=== PATIENT | male | born 1970 | race Caucasian/White ===

== ENCOUNTER 2020-03-09 10:16 | Outpatient (REF) | payer OTHER, SELFPAY ==
[2020-03-09 12:17] LABS: Influenza A PCR NEGATIVE (Negative); Influenza B PCR NEGATIVE (Negative); Resp Syncy Virus RNA Qual PCR NEGATIVE (Negative); SARS COV2 PCR INHOUSE NEGATIVE (Negative)
== END 2020-03-09 10:17 | disposition home or self-care (01) ==
LOC: HO.LAB 10:16
PROVIDERS: Visit Provider Nurse Practitioner Family
DX: J06.9 Acute upper respiratory infection, unspecified (principal); J01.90 Acute sinusitis, unspecified; Z20.828 Contact with and (suspected) exposure to other viral communicable diseases
CPT/HCPCS: 0241U

== ENCOUNTER 2020-04-15 08:37 | Outpatient (REF) | payer OTHER, SELFPAY ==
--- NOTE | ~2020-04-15 | XR_ITS ---
EXAMINATION: XR ANKLE, LEFT CLINICAL INFORMATION: Trauma COMPARISON: None TECHNIQUE: AP, lateral, and mortise views of the left ankle. FINDINGS: Bone alignment is normal. No acute fracture or dislocation is seen. There are small well-corticated soft tissue ossifications adjacent to the medial lateral malleolar likely related to old trauma. There is mild arthritis at the anterior tibiotalar joint. There are calcaneal spurs. There is lateral soft tissue swelling. XR/XR ankle LT min 3V IMPRESSION: No acute fracture or dislocation seen. Probable changes from old trauma and mild posttraumatic osteoarthritis. Calcaneal spurs.
== END 2020-04-15 08:38 | disposition home or self-care (01) ==
LOC: HO.HMGCX 08:37
PROVIDERS: PCP Nurse Practitioner Family; Visit Provider Nurse Practitioner Family
DX: S99.919A Unspecified injury of unspecified ankle, initial encounter (principal)
CPT/HCPCS: 73610

== ENCOUNTER 2020-09-19 10:43 | Outpatient (REF) | payer OTHER, SELFPAY ==
--- NOTE | ~2020-09-19 | XR_ITS ---
EXAMINATION: XR KNEE, LEFT CLINICAL INFORMATION: Left knee pain COMPARISON: None TECHNIQUE: Four views of the left knee. FINDINGS: Bony mineralization is normal. There is no fracture or dislocation or destructive process. No definite suprapatellar effusion. The deep infrapatellar recess is preserved. There is no joint narrowing or erosive change or chondrocalcinosis. XR/XR knee LT 4V IMPRESSION: Unremarkable left knee.
== END 2020-09-19 10:44 | disposition home or self-care (01) ==
LOC: HO.HMGCX 10:43
PROVIDERS: PCP Nurse Practitioner Family; Visit Provider Nurse Practitioner Family
DX: M25.562 Pain in left knee (principal)
CPT/HCPCS: 73564

== ENCOUNTER 2020-11-28 17:00 | Outpatient (RCR) | payer OTHER, SELFPAY ==
--- NOTE | 2020-09-30 17:52 | MHC.PT.EP ---
[facility] [place] Office [place] Office [place] Office [address] [phone] F: [phone] F: [phone] F: [phone] F: [phone] Physical Therapy Plan of Care Date of Evaluation: Date of Surgery: Diagnosis: Cervical strain. 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 Pt is deemed an appropriate candidate to receive skilled PT in order to address his physical limitations to improve his functional ability. Frequency and Duration: The patient will be seen 2 x / wk x 5 wks. Short Term Goals: Improve baseline pain at the end of his work days from 4/10 to < 3/10. initiate HEP. Prison Goals: Symmetrical non painful cervical rotation achieved. Improve DNF flexor endurance from 20 seconds to > 34 seconds. I with HEP. Pt will report no longer painful carrying objects of weight. Treatment Plan: Modalities to reduce pain, spasms and effusion. Manual therapy to restore motion and function. Therapeutic exercise to improve strength and flexibility. Neuromuscular re-education for posture and balance. Therapeutic activities to return to functional activities of daily living. Electronically signed by: Martin Hodgson PT. Please sign and return to therapist. Thank you for your referral.
--- NOTE | 2020-12-16 15:53 | MHC.PT.DC ---
[facility] [place] Office [place] Office [place] Office [address] [phone] F: [phone] F: [phone] F: [phone] F: [phone] Physical Therapy Discharge Report Diagnosis: Cervical strain. Date of Surgery: Date of Evaluation: 09/30/20 Date of Discharge: 12/16/20 Treatments to Date: 9 Cancellations to Date: No Shows to Date: Discharge Status: Achieved Goals Improved Function Independent with HEP Discharge Summary: Chris has been an active participant in/out of the clinic. within 9 visit, chris has managed to achieve his goals, improve function, and is independent with his HEP. both pt and PT are in agreement with DC. Electronically signed by: Martin Hodgson PT Please sign and return to therapist. Thank you for your referral.
== END 2020-12-16 15:54 | disposition home or self-care (01) ==
LOC: HO.PTCHIC 17:00
PROVIDERS: PCP Nurse Practitioner Family; Visit Provider Nurse Practitioner Family
DX: S16.1XXD Strain of muscle, fascia and tendon at neck level, subsequent encounter (principal)
CPT/HCPCS: 97110; 97140; 97161

== ENCOUNTER 2021-02-09 11:08 | Outpatient (REF) | payer OTHER, SELFPAY ==
[2021-02-09 12:05] LABS: Influenza A PCR NEGATIVE (Negative); Influenza B PCR NEGATIVE (Negative); Resp Syncy Virus RNA Qual PCR POSITIVE (Negative); SARS COV2 PCR INHOUSE NEGATIVE (Negative)
== END 2021-02-09 11:09 | disposition home or self-care (01) ==
LOC: HO.LNP 11:08
PROVIDERS: Visit Provider Physician Assistant Medical
DX: Z20.822 Contact with and (suspected) exposure to COVID-19 (principal); J06.9 Acute upper respiratory infection, unspecified; J01.90 Acute sinusitis, unspecified; H66.91 Otitis media, unspecified, right ear
CPT/HCPCS: 0241U

== ENCOUNTER 2021-11-01 08:46 | Outpatient (REF) | payer OTHER, SELFPAY ==
--- NOTE | ~2021-11-01 | XR_ITS ---
EXAMINATION: XR LUMBOSACRAL SPINE CLINICAL INFORMATION: Low back pain COMPARISON: None TECHNIQUE: Three views of the lumbosacral spine. FINDINGS: 5 nonrib-bearing lumbar vertebral bodies are visualized. There is mild to moderate dextroscoliosis of the lumbar spine centered at L2. Alignment is otherwise unremarkable. Lumbar vertebral body heights are maintained. Mild narrowing of the L5/S1 disc space height. Degenerative changes of the posterior elements of the lower lumbar spine. Small osteophytes are scattered throughout the lumbar spine. XR/XR lumbar spine 2-3V IMPRESSION: Mild degenerative changes of the lumbar spine.
== END 2021-11-01 08:47 | disposition home or self-care (01) ==
LOC: HO.HMGCX 08:46
PROVIDERS: PCP Nurse Practitioner Family; Visit Provider Nurse Practitioner Family
DX: M54.50 Low back pain, unspecified (principal)
CPT/HCPCS: 72100

== ENCOUNTER 2021-12-18 07:21 | Outpatient (REF) | payer OTHER, SELFPAY ==
--- NOTE | ~2021-12-18 | MR_ITS ---
EXAMINATION: MR LUMBAR SPINE WITHOUT CONTRAST CLINICAL INFORMATION: Low back pain. COMPARISON: None TECHNIQUE: MRI of the lumbar spine was obtained using routine sequences without contrast. FINDINGS: The lumbar vertebral bodies maintain normal height and alignment. There is mild multilevel intervertebral disc height loss. No bone marrow edema is seen. The distal spinal cord appears normal. The conus medullaris terminates normally at the L1 level. The visualized paraspinal muscles and intra-abdominal and pelvic contents are within normal limits. SPINAL LEVELS: T12-L1: Disc bulging with small central extrusion with mild superior migration. Mild flattening of the ventral thecal sac. No spinal canal or neural foraminal stenosis. L1-L2: Disc bulging with shallow central protrusion. No spinal canal or neural foraminal stenosis. L2-L3: Disc bulging with annular fissuring. Mild flattening the ventral thecal sac with narrowing of the left subarticular zone. No spinal canal stenosis. Mild left neural foraminal stenosis. L3-L4: Disc bulging with mild facet arthropathy. Left foraminal protrusion compresses the exiting left L3 nerve root. No spinal canal stenosis. L4-L5: Disc bulging with right subarticular extrusion resulting in compression of the traversing right L5 nerve root. A small right-sided synovial facet cyst contributes to right subarticular stenosis at the disc level. Severe facet arthropathy. No significant spinal canal stenosis. Right foraminal protrusion mildly compresses the exiting right L4 nerve root. No significant left-sided neural foraminal stenosis. L5-S1: Disc bulging with focal central protrusion resulting in right more than left subarticular stenosis compression of the traversing right more than left S1 nerve roots. Moderate facet arthropathy. Mild right neural foraminal stenosis but without foraminal nerve root compression. MR/MR lumbar spine wo con IMPRESSION: At L3-L4 there is left foraminal protrusion resulting in compression of the exiting left L3 nerve root. At L4-L5 there is right subarticular extrusion resulting in compression of the traversing right L5 nerve root. Right foraminal protrusion mildly compresses the exiting right L4 nerve root. At L5-S1 there is central protrusion resulting in compression of the traversing right more than left S1 nerve root.
== END 2021-12-18 07:22 | disposition home or self-care (01) ==
LOC: HO.MRI 07:21
PROVIDERS: Visit Provider Nurse Practitioner Family
DX: M54.50 Low back pain, unspecified (principal); M79.606 Pain in leg, unspecified
CPT/HCPCS: 72148

== ENCOUNTER → 2022-01-25 08:39 | Outpatient (BNVA) | payer OTHER, SELFPAY | PROVIDERS: PCP Nurse Practitioner Family; Visit Provider Anesthesiology | DX: M47.816 Spondylosis without myelopathy or radiculopathy, lumbar region (principal); M51.36 Other intervertebral disc degeneration, lumbar region; M54.16 Radiculopathy, lumbar region; G89.4 Chronic pain syndrome | CPT/HCPCS: 99202 ==

== ENCOUNTER 2022-02-04 14:35 | Emergency (ER) | payer OTHER, SELFPAY | END 2022-02-04 16:46 | disposition left against medical advice (07) | LOC: HO.ED 17:09 | PROVIDERS: Emergency Provider Emergency Medicine; PCP Nurse Practitioner Family | DX: M54.50 Low back pain, unspecified (principal) ==

== ENCOUNTER 2022-04-12 08:00 | Outpatient (RCR) | payer OTHER, SELFPAY ==
--- NOTE | 2021-09-22 13:22 | MHC.PT.EP ---
[facility] [place] Office [place] Office [place] Office [address] [phone] F: [phone] F: [phone] F: [phone] F: [phone] Physical Therapy Plan of Care Date of Evaluation: Date of Surgery: Diagnosis: LBP. Assessment: Pt is a 51 y/o male referred to PT for eval and treat of LBP who presents lumbar dysfunction resulting in decreased tolerance and ability to perform standing and sitting tasks for duration, as well as lifting objects of weight, and performing LE dressing secondary to decreased hip and core strength, decreased trunk ROM as well as decreased posture, increased tissue tension, pelvic asymmetry and pain. Pt is deemed an appropriate candidate to receive skilled PT in order to address his physical limitations to improve his functional ability. Frequency and Duration: The patient will be seen 2 x / wk x 5 wks. Short Term Goals: Initiate HEP with evidence of compliance. Improve baseline at worst from 7/10 to < 4/10. Mcfp Goals: I with HEP. Pt will report no longer painful when sitting; initial: pain prevents from sitting > 1 hour. Pt will no longer find it necessary to change his way performing LE dressing and self care d/t LBP. Pt will report he has some pain with standing for duration though can stand as long as he'd like; initial < 1 hour. Treatment Plan: Modalities to reduce pain, spasms and effusion. Manual therapy to restore motion and function. Therapeutic exercise to improve strength and flexibility. Neuromuscular re-education for posture and balance. Therapeutic activities to return to functional activities of daily living. Electronically signed by: Martin Hodgson PT. Please sign and return to therapist. Thank you for your referral.
--- NOTE | 2022-04-12 13:33 | MHC.PT.DC ---
[facility] [place] Office [place] Office [place] Office [address] [phone] F: [phone] F: [phone] F: [phone] F: [phone] Physical Therapy Discharge Report Diagnosis: LBP. Date of Surgery: Date of Evaluation: 09/14/21 Date of Discharge: 04/12/22 Treatments to Date: 24 Cancellations to Date: No Shows to Date: Discharge Status: Improved Function Independent with HEP Recommend MD Follow-up Discharge Summary: Chris has been an active and motivated participant in his therapy who had been resolving his radicular symptoms though experienced a significant exacerbation and had been scheduled for spinal surgery which he is planning on in 2 weeks. He is I with a home program and is again improved of his radicular Sx again through extension based ideas though persists with limiting LBP. Electronically signed by: Martin Hodgson PT. Please sign and return to therapist. Thank you for your referral.
== END 2022-04-12 13:34 | disposition home or self-care (01) ==
LOC: HO.PTCHIC 08:00
PROVIDERS: PCP Nurse Practitioner Family; Visit Provider Nurse Practitioner Family
DX: M54.50 Low back pain, unspecified (principal)
CPT/HCPCS: 97014; 97110; 97112; 97140; 97161; 97530

== ENCOUNTER → 2022-08-29 10:20 | Outpatient (BNVA) | payer OTHER, SELFPAY | PROVIDERS: PCP Nurse Practitioner Family; Visit Provider Anesthesiology | DX: G89.4 Chronic pain syndrome (principal); M47.816 Spondylosis without myelopathy or radiculopathy, lumbar region; M51.36 Other intervertebral disc degeneration, lumbar region | CPT/HCPCS: 99212 ==

== ENCOUNTER 2022-10-23 05:55 | Outpatient (REF) | payer OTHER, SELFPAY ==
--- NOTE | ~2022-10-23 | FL_ITS ---
EXAMINATION: XR FLUOROSCOPY WITH IMAGES CLINICAL INFORMATION: Spondylosis without myelopathy or radiculopathy, lumbar region. COMPARISON: None available. TECHNIQUE: Fluoroscopy Supervised By: Dr. Dougie Lawson. Fluoroscopy Time: 0.9 minutes. Cumulative Dose: 13.8 mGy. DAP: 0.239 Gycm2. Images: 8. FINDINGS: Images demonstrate bilateral lateral needle placement and contrast injection adjacent to the L3-L4 and L5 vertebrae FL/FL guidance in treatment room IMPRESSION: Fluoroscopy guidance for pain management procedure.
== END 2022-10-23 05:56 | disposition home or self-care (01) ==
LOC: CF 05:55
PROVIDERS: Visit Provider Anesthesiology
DX: M47.816 Spondylosis without myelopathy or radiculopathy, lumbar region (principal); M51.36 Other intervertebral disc degeneration, lumbar region; G89.4 Chronic pain syndrome
CPT/HCPCS: 64493; 64494; J2795; Q9967

== ENCOUNTER 2022-10-23 07:29 | Outpatient (AMB) | payer OTHER, SELFPAY ==
[2022-10-23 07:25] VITALS: BP 124/82; PULSE 66; RESP 16; O2SAT 96; BMI 37.2
--- NOTE | 2022-10-23 07:25 | MHC.OFFVIS ---
Intake Vital Signs 10/23/22 07:25 Height 5 ft 10 in Weight 259 lb BMI 37.2 BP 124/82 Blood Pressure Location Lt brachial Position Sitting Respiration 16 Pulse 66 Pulse Source Pulse Oximeter Pulse Oximetry (%) 96 Oxygen Delivery Method Room Air Comment Pre-Op Intake Visit Reasons: BILAT L3-L4-DRL5 DX MBB/LOCAL Allergies amoxicillin [AMOXICILLIN] Allergy (Intermediate, Verified 10/23/22 07:26) HIVES penicillin V Allergy (Unknown, Verified 10/23/22 07:26) hives penicillin Allergy (Unknown, Uncoded 06/28/22 14:14) Hives [facility] Medical History Acute middle ear effusion Social History Patient Tobacco Use Status: Never used Tobacco e-Cigarette/Vaping Use: Never Used Second Hand Smoke Exposure: No service: Yes Current occupational status: employed Current occupational exposures/hazards: Yes Cognitive needs: No Hearing needs: No Vision needs: No Physical Exam Vital Signs: Last Vital Signs Pulse 66 10/23/22 07:25 Resp 16 10/23/22 07:25 BP 124/82 10/23/22 07:25 Pulse Ox 96 10/23/22 07:25 Oxygen Delivery Method Room Air 10/23/22 07:25 BMI result Body Mass Index 37.2 Assessment & Plan Assessment & Plan (1) Spondylosis of lumbar region without myelopathy or radiculopathy: Code(s): M47.816 - Spondylosis without myelopathy or radiculopathy, lumbar region Plan: Diagnostic medial branch block L3,L4 dorsal ramus L5 bilateral.? ? ?Informed consent was explained to the patient. All questions were explained and? answered.? The patient was taken inside the operating room where she was positioned prone on the operating table. Time-out was performed delineating correct site, side, the nature of the procedure, patient's allergy, . All operating room staff was participating in OR time-out procedure. ? ? The lower back was prepped with ChloraPrep and draped with sterile towels.? C-arm was brought over the operating field and sq picture ofL3, L4-, L5 vertebra and S1 AREA were delineated on the screen.? Point of interest were delineated as confluence of superior articular process of L4 and L5 vertebra bilaterally with corresponding transverse processes as well as confluence of the sacral alae bilaterally with superior articular process of S1.? The projection of the point of interest to the skin were injected with the small amount of local anesthetic lidocaine 2% 1-1.5 cc.? After that 22 gauge 3.5 inch spinal needle was driven sequentially to the points of interest in tunnel vision fashion. After needles gently contacted the bone at the point of interests the needle was injected with small amount of the contrast.? The injection of the contrast did not demonstrate any intravascular or intrathecal spread of the contrast.? After that injection of the? ropivacaine 0.5%-1cc was performed at each needle location.??after that the needles were removed and Bandaids were applied. ? Upon completion of the injections? needle was? removed and sterile Band-Aids were applied.? The patient tolerated procedure very well. (2) Disc degeneration, lumbar: Code(s): M51.36 - Other intervertebral disc degeneration, lumbar region (3) Chronic pain syndrome: Code(s): G89.4 - Chronic pain syndrome Plan This patient is suffering from spondylosis of lumbar spine as well as degeneration of lumbar spine. I offered him to have neurosurgical consult about L4-5 level. He went for a surgery with Dr. Rowley. No hardware. It was laminectomy and diskectomy. I offered him again to perform bilateral diagnostic L2-L3 -L4 dorsal ramus L5 medial branch block in the attempt to alleviate his pain. Injection will be purely diagnostic. No steroids. After the procedure I will examine the patient and the effect on this with which medial branch block alleviated his pain. MRI to check for presence of Modic changes in MBB is not effective. Orders: Orders FL guidance in treatment room Today M47.816 - Spondylosis without myelopathy or radiculopathy, lumbar region Coding Level of Care Code Procedure Only Diagnoses Spondylosis of lumbar region without myelopathy or radiculopathy M47.816 Disc degeneration, lumbar M51.36 Chronic pain syndrome G89.4
== END 2022-10-23 08:05 | disposition home or self-care (01) ==
PROVIDERS: PCP Nurse Practitioner Family; Visit Provider Anesthesiology
DX: M47.816 Spondylosis without myelopathy or radiculopathy, lumbar region (principal); M51.36 Other intervertebral disc degeneration, lumbar region; G89.4 Chronic pain syndrome
CPT/HCPCS: 64493; 64494

== ENCOUNTER 2022-10-25 08:32 | Outpatient (AMB) | payer OTHER, SELFPAY ==
--- NOTE | 2022-10-25 08:35 | MHC.OFFVIS ---
Intake Vital Signs 10/25/22 08:43 Height 5 ft 10 in Weight 265 lb BMI 38.0 BP 134/84 Blood Pressure Location Lt brachial Position Sitting Respiration 16 Pulse 78 Pulse Source Pulse Oximeter Pulse Oximetry (%) 98 Oxygen Delivery Method Room Air Intake Visit Reasons: BILAT L3-L4-DRL5 DX MBB 10/23/22 Intake Note: patient comes in for post-op appointment. Allergies amoxicillin [AMOXICILLIN] Allergy (Intermediate, Verified 10/25/22 08:42) HIVES penicillin V Allergy (Unknown, Verified 10/25/22 08:42) hives penicillin Allergy (Unknown, Uncoded 06/28/22 14:14) Hives HPI HPI Comments History of Present Illness Details Chris is back in my office after diagnostic medial branch block L2-L3 L4 dorsal ramus L5 bilateral diagnostic which was performed on 10/23/2022. He reports 100% pain relief immediately after the procedure 0/10 pain. 1 hour after the procedure he has pain was 2/10. 2 hours after the procedure the pain became 4/10. 3 hours of the procedure he report pain 0/10 he reported able to be sitting for long period of time reported absence of stiffness when he stood up. For hours after the procedures he had 0 pain in the back and 5 hours of the procedure he had pain 2/10 in the back. 6 hours after procedure pay started to come back to the baseline and was 5/10. Therefore it looks like that he has very significant pain relief. Usually during the daytime as he day progresses his pain is getting worse and more intense. After the injection he reported delay of the onset of the pain exacerbation, better mobility and better mood. He is interested in long-term solutions to treat his pain. I offered him sprint PNS versus RFA. All procedures were explained to the patient in great detail. The patient will think about it he will give us a call and inform us about his decision into which procedure he would like to go for. Limitations risks and benefits of all the potential treatments explained to the patient. Prior: he had neurosurgical procedure laminectomy and diskectomy form by Dr. Rowley. He reports that symptoms of radiculopathy pain and paresthesia going down to the lower extremity are much better after the surgery. However axial back pain is getting worse. As we planned before I decided to schedule him again for diagnostic medial branch block L3-L4 does ramus L5 bilateral. I will schedule him for this procedure clay. After procedure I will evaluate his pain again. Minimal suspicion for right sacroiliitis may justify future sacroiliac joint injection on the right if MBB will not help his pain. 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 He reports pain in the back with radiation to the hip he also reports tingling pins and needle sensation in the right foot.? Reports all the toes are affected.? ? He had an MRI of the lumbar spine which is dictated by below.? He went for physical therapy with core physical therapy and did not receive any pain improvement he went for chiropractic manipulation with no improvement he went for massage therapy with no improvement head 10s unit with no improvement.? He never had any injections.? [facility] Medical History Acute middle ear effusion Social History Patient Tobacco Use Status: Never used Tobacco e-Cigarette/Vaping Use: Never Used Second Hand Smoke Exposure: No service: Yes Current occupational status: employed Current occupational exposures/hazards: Yes Cognitive needs: No Hearing needs: No Vision needs: No Review of Systems Const All systems reviewed & are unremarkable except as noted in HPI and below ENT Reports Normal hearing present Neuro Reports Normal hearing present, Denies Abnormal speech present and Denies Sensory deficit (Neuro) Physical Exam Vital Signs: Last Vital Signs Pulse 78 10/25/22 08:43 Resp 16 10/25/22 08:43 BP 134/84 10/25/22 08:43 Pulse Ox 98 10/25/22 08:43 Oxygen Delivery Method Room Air 10/25/22 08:43 BMI result Body Mass Index 38.0 Const General: healthy appearing, comfortable and well developed Nutritional Appearance: obese Orientation/consciousness: patient oriented x3 Eyes General: appearance normal, both eyes and all related structures Pupils: Equal, round and reactive pupils present EOM: EOMs intact bilaterally Neck Neck: Yes full ROM Chest Chest palpation & inspection: normal inspection of the chest Resp Effort & Inspection: normal respiratory effort, able to speak in complete sentences, normal respiratory pattern, no audible wheezes and no cough Cardio Jugular venous distension: no JVD GI Inspection: Yes normal to inspection Back/Spine/Pelvis Other: SLR is negative for pain increase in the right lower extremity. lassegue test is negative for pain increase in the right lower extremity. Andres's test is negative for pain increase. Loading test is positive on the right more than it is positive on the left. Tenderness on palpation on paraspinal but not spinal region of the lumbar spine. Gaenslen test is negative on the right. The left side is not affected by the pain. Neuro General: patient oriented x3 Cranial nerves: Yes CN's II-XII intact bilaterally, Yes Equal, round and reactive pupils present, Yes Normal hearing present and Yes Ability to bilaterally elevate shoulders present Speech: No Abnormal speech present Gait exam (Neuro): Normal gait present Motor exam (neuro): 5/5 motor strength present throughout Sensory Exam: No Sensory deficit (Neuro) Extrem General: No pedal edema Psych Speech and movement: Normal speech and movement present Affect: normal affect Attitude: cooperative Thought process: Normal thought process present Thought content: Normal thought content present Insight: Good insight present (Psych) Judgement: Good judgement present (Psych) Assessment & Plan Assessment & Plan (1) Spondylosis of lumbar region without myelopathy or radiculopathy: Code(s): M47.816 - Spondylosis without myelopathy or radiculopathy, lumbar region (2) Disc degeneration, lumbar: Code(s): M51.36 - Other intervertebral disc degeneration, lumbar region (3) Chronic pain syndrome: Code(s): G89.4 - Chronic pain syndrome Plan This patient is suffering from spondylosis of lumbar spine as well as degeneration of lumbar spine. I offered him to have neurosurgical consult about L4-5 level. He went for a surgery with Dr. Rowley. No hardware. It was laminectomy and diskectomy. I offered him again to perform bilateral diagnostic L2-L3 -L4 dorsal ramus L5 medial branch block in the attempt to alleviate his pain. Results of the injections are as above. RFA versus PNS print were explained to the patient. He will think about it and let us know which way he would like to proceed. My personal choice would be sprint peripheral nerve stimulation for - this patient. MRI to check for presence of Modic changes if MBB or RFA is not effective. Coding Level of Care Code Est Pt Level 4 (07624) Diagnoses Spondylosis of lumbar region without myelopathy or radiculopathy M47.816 Disc degeneration, lumbar M51.36 Chronic pain syndrome G89.4
[2022-10-25 08:43] VITALS: BP 134/84; PULSE 78; RESP 16; O2SAT 98; BMI 38.0
== END 2022-10-25 09:11 | disposition home or self-care (01) ==
PROVIDERS: PCP Nurse Practitioner Family; Visit Provider Anesthesiology
DX: G89.4 Chronic pain syndrome (principal); M47.816 Spondylosis without myelopathy or radiculopathy, lumbar region; M51.36 Other intervertebral disc degeneration, lumbar region
CPT/HCPCS: 99214

== ENCOUNTER → 2022-10-25 08:32 | Outpatient (BNVA) | payer OTHER, SELFPAY | PROVIDERS: PCP Nurse Practitioner Family; Visit Provider Anesthesiology | DX: M47.816 Spondylosis without myelopathy or radiculopathy, lumbar region (principal); M51.36 Other intervertebral disc degeneration, lumbar region; G89.4 Chronic pain syndrome | CPT/HCPCS: 99212 ==

== ENCOUNTER 2022-11-05 08:25 | Outpatient (REF) | payer OTHER, SELFPAY ==
[2022-11-05 11:20] LABS: MANUAL DIFF FLAG NO
[2022-11-05 11:32] LABS: Basophils Absolute Auto 0.1 X10*3/uL (0.0-0.2); Basophils Percent Auto 1.1 % (0-2); Eosinophils Absolute Auto 0.2 X10*3/uL (0.0-0.4); Eosinophils Percent Auto 3.6 % (0-4); Hematocrit 44.6 % (42.0-52.0); Hemoglobin 14.7 g/dl (14.0-18.0); Imm Gran Abs Auto 0.02 X10*3/uL (0.00-0.03); Imm Gran Pct Auto 0.3 % (0.0-0.4); Lymphocytes Absolute Auto 2.4 X10*3/uL (1.2-4.9); Mean Corpuscular Hemoglobin 27.8 pg (27.0-33.0); Mean Corpuscular Volume 84.3 fL (80.0-98.0); Mean Platelet Volume 10.9 fL (9.4-12.4); Monocytes Absolute Auto 0.5 X10*3/uL (0.1-1.2); Monocytes Percent Auto 7.6 % (2-11); Neutrophils Absolute Auto 3.3 x10*3/uL (2.0-8.3); Neutrophils Percent Auto 50.4 % (45-73); Platelet Count 261 X10*3/uL (160-400); Red Blood Count 5.29 X10*6/uL (4.60-5.80); Red Cell Distribution Width 14.7 % (11.0-16.0); White Blood Count 6.6 X10*3/uL (4.8-10.8)
[2022-11-05 11:36] LABS: Appearance Urine Clear; Color Urine Yellow; Glucose Urine UA Negative (Negative); Leukocyte Esterase Urine Negative (Negative); Nitrite Urine Negative (Negative); PH 5.5 (5.0-9.0); Urine Blood Negative (Negative); Urine Ketones Negative (Negative); Urine Protein Negative (Neg-Trace)
[2022-11-05 12:21] LABS: Alanine Aminotransferase 36 U/L (0-40); Albumin Level 4.5 g/dL (3.5-5.0); Alkaline Phosphatase 48 U/L (39-117); Anion Gap 13 (12-20); Aspartate Amino Transferase 25 U/L (5-37); Bilirubin Total 0.4 mg/dL (0.0-1.0); Blood Urea Nitrogen 11 mg/dL (9-16); Calcium 9.4 mg/dL (8.4-10.2); Carbon Dioxide 25 mmol/L (22-29); Chloride 107 mmol/L (96-108); Cholesterol 230 mg/dL (<200); Estimated Glomerular Filt Rate > 60; Glucose Fasting 107 mg/dL (60-99); HDL Cholesterol 48 mg/dL (>40); LDL Cholesterol Calculated 139 mg/dL (<100); Potassium 4.6 mmol/L (3.3-5.1); Sodium 140 mmol/L (135-145); Total Protein 7.6 g/dL (6.5-8.0); Triglycerides 216 mg/dL (<150)
[2022-11-05 12:39] LABS: Prostate Specific Antigen Scr 1.05 ng/mL (<0.05-4.0)
== END 2022-11-05 08:26 | disposition home or self-care (01) ==
LOC: HO.HMGCLDS 08:25
PROVIDERS: PCP Nurse Practitioner Family; Visit Provider Nurse Practitioner Family
DX: Z00.00 Encounter for general adult medical examination without abnormal findings (principal); Z12.5 Encounter for screening for malignant neoplasm of prostate; E78.5 Hyperlipidemia, unspecified; Z13.29 Encounter for screening for other suspected endocrine disorder; Z13.0 Encounter for screening for diseases of the blood and blood-forming organs and certain disorders involving the immune mechanism
CPT/HCPCS: 36415; 80053; 80061; 81003; 84153; 84443; 85025

== ENCOUNTER 2022-11-19 07:36 | Outpatient (AMB) | payer OTHER, SELFPAY ==
--- NOTE | 2022-11-19 07:06 | A.OFFPC_ITS ---
Intake Visit Reasons: discuss back pain/[phone] Allergies amoxicillin [AMOXICILLIN] Allergy (Intermediate, Verified 10/25/22 08:42) HIVES penicillin V Allergy (Unknown, Verified 10/25/22 08:42) hives penicillin Allergy (Unknown, Uncoded 06/28/22 14:14) Hives Tobacco use date assessed: 06/28/22 HPI discuss back pain/[phone] HPI Details Lower back pain: Pt underwent a L4-L5 laminectomy and removal of synovial cyst on the right in April of 2022. He also had a diagnostic medial branch block L3, L4 dorsal ramus L5 bilateral on 10/23. He reports that this has helped somewhat. Pt is awaiting an appointment with pain management for an RFA. Pt reports that he is unable to sit for long periods due to pain. Will keep him out of jury duty. Denies any signs of cauda equina. [facility] Medical History (Reviewed 06/28/22 @ 14:43 by Bradley Murphy [facility]) Acute middle ear effusion Social History (Reviewed 06/28/22 @ 14:43 by Bradley Murphy, [facility]) Patient Tobacco Use Status: Never used Tobacco e-Cigarette/Vaping Use: Never Used Second Hand Smoke Exposure: No service: Yes Current occupational status: employed Current occupational exposures/hazards: Yes Cognitive needs: No Hearing needs: No Vision needs: No Questionnaire Thrive Questionnaire Date Thrive assessed: 02/16/21 JAYLIN-7 AMB Questionnaire JAYLIN-7 Date JAYLIN - 7 assessed: 02/16/21 Source: Developed by Drs. Alexis Qiu, Chandirka Copeland, Juarez Hoffmann and colleagues, with an educational cecy from [employer]. Review of Systems Const Reports as per HPI Physical exam (Primary Care) Tobacco/Smoking Status: Tobacco use Status Tobacco use date assessed 06/28/22 11/19/22 07:08 Patient Tobacco Use Status Never used Tobacco 11/19/22 07:08 e-Cigarette/Vaping Use Never Used 11/19/22 07:08 Thrive Assessment: Date of Thrive Assessment Date Thrive assessed 02/16/21 11/19/22 07:08 Const General: cooperative Orientation/consciousness: patient oriented x3 Neuro General: patient oriented x3 Psych Appearance: grossly normal Mental Status: mental status grossly normal Speech and movement: Clear speech present Affect: normal affect Attitude: cooperative Thought process: Normal thought process present Thought content: Normal thought content present Insight: Good insight present (Psych) Judgement: Good judgement present (Psych) Telehealth Telehealth Location of provider rendering services: practice address Location of patient: address on file Patient Identification confirmed using: Name, : Yes Telehealth method: video Patient verbally consented to treatment: Yes Patient verbally consented to billing insurance company: Yes Patient informed of any privacy concerns related to visit: Yes Minutes spent on Phone/Video with Pt.: 10 Assessment and Plan Assessment & Plan (1) Disc degeneration, lumbar: Code(s): M51.36 - Other intervertebral disc degeneration, lumbar region (2) Radiculopathy, lumbar region: Code(s): M54.16 - Radiculopathy, lumbar region (3) Chronic pain syndrome: Code(s): G89.4 - Chronic pain syndrome Plan The patient agreed to the use of a medical services manager for this encounter. Scribed for RAMON Vanegas by Mavis Erwin medical services manager, on 11/19/2022 at 07:05 EST. Coding Level of Care Code Tele Est Pt Level 3 (84070) Diagnoses Disc degeneration, lumbar M51.36 Radiculopathy, lumbar region M54.16 Chronic pain syndrome G89.4
== END 2022-11-19 08:10 | disposition home or self-care (01) ==
PROVIDERS: PCP Nurse Practitioner Family; Visit Provider Nurse Practitioner Family
DX: M51.36 Other intervertebral disc degeneration, lumbar region (principal); M54.16 Radiculopathy, lumbar region; G89.4 Chronic pain syndrome
CPT/HCPCS: 99213

== ENCOUNTER 2022-12-27 13:21 | Day surgery (SDC) | payer OTHER, SELFPAY ==
--- NOTE | ~2022-12-27 | FL_ITS ---
EXAMINATION: XR FLUOROSCOPY WITH IMAGES CLINICAL INFORMATION: RFA COMPARISON: None available. TECHNIQUE: Fluoroscopy Supervised By: Dr. Dougie Lawson. Fluoroscopy Time: 1.0 minutes. Cumulative Dose: 23.9 mGy. DAP: 14.6 Gycm2. Images: 4. FINDINGS: Images demonstrate bilateral lateral probe placement adjacent to the L3, L4 and L5 vertebrae FL/FL guidance in OR IMPRESSION: Fluoroscopy guidance for pain management procedure
[2022-12-27 13:41] VITALS: BP 159/100; PULSE 85; RESP 18; TEMP 36.1; O2SAT 95; BMI 37.9; BMI 38.0
--- NOTE | 2022-12-27 14:18 | MHC.SHP ---
Pre-Procedural Eval Section A Date of Service: 12/27/22 The patient is an INPATIENT: No Changes since office visit: Yes Patient answered all questions The History & Physical has been completed within 30 days and I have reviewed it.: No Section B Chief Complaint: Spondylosis without myelopathy or radiculopathy, Details of Present Illness: as above Relevant Social History: None Present Medications: None Medical History: No relevant PMH History of Previous Operations: No relevant previous surgery Allergies: Allergies Allergy/AdvReac Type Severity Reaction Status Date / Time amoxicillin [AMOXICILLIN] Allergy Intermediate HIVES Verified 10/25/22 08:42 penicillin V Allergy Unknown hives Verified 10/25/22 08:42 penicillin Allergy Unknown Hives Uncoded 06/28/22 14:14 Review of Systems Sugical H&P ROS: Negative: Cardiovascular, Respiratory, Neurological, Psychiatric, Hem-Onc, Allergic/Immunologic, Gastrointestinal, Genitourinary, Integumentary, Endocrine and Eyes/Ears/Nose/Throat and Yes, Specify: Constitution ( obesity) and Musculoskeletal ( spondylosis lumbar) Exam Surgical H&P Exam: Normal: HEENT, Normal: Heart, Normal: Lungs, Normal: Extremities, Normal: Skin and Normal: Neurological and Significant Findings: Abdomen ( enlarged 2 to i/a &s/q fat) Plan Diagnosis/Plan: Unchanged I have reviewed the history and physical and performed a pertinent physical examination on my patient. No changes have occurred unless specified. Time Spent With Patient Time: Total time managing care of this patient today __ 5__ minutes.
--- NOTE | 2022-12-27 14:42 | W.PM.OPN ---
Operative Note Operative Note Date of Service: 12/27/22 Narrative: RFA L3-L4-DRL5 bilateral medial branches. Informed consent was explained to the patient. All questions were explained and answered. The patient was taken inside the operating room where he was positioned prone on the operating table. the patient was Not sedated, he was able to communicate with me during the entire procedure. Time-out was performed delineating name and of the patient,? correct site, side, the nature of the procedure, patient's allergy, preoperative antibiotic if needed. All operating room staff was participating in OR time-out procedure. The lower back was prepped with ChloraPrep and draped with sterile towels. C-arm was brought over the operating field and sq picture of L4, L5 vertebras and upper sacrum were delineated on the screen. Point of interest were delineated as connection of superior articular process of? L4 and L5 vertebra bilaterally with corresponding transverse processes as well as superior articular process of S1 bilaterally connection with sacral alae 1st on the right and then on the left side.? ?The projection of the point of interest to the skin were injected with the small amount of local anesthetic lidocaine 2% 1-1.5 cc. After that 18 gauge 100 mm RFA canulas? were driven to the point of interest in oblique fashion. After needles gently contacted the bone the? sensory and motor tests were performed.The lateral images were obtained and position of the tips of the needles away from the foramina and presumable location of the somatic nerves was verified. Sensory response was appropriate and no motor response was detected in the patients feet lower legs or thighs. After that? at the point of interests the cannulas? were injected with small amount of ropivacaine 0.5% mixed with lidocaine 1%-1cc?-2cc. and Trace amount of Kenalog. 90 seconds after the injection the energy application was performed at 89 degrees Centigrade for 90 second. After first energy application the canullas were rotated 180 degrees and energy application was repeated at the same setting.? Upon completion of the energy applications canullas were removed and sterile bandaids? were applied, The? patient was taken outside of the operating room to recovery room, he recovered uneventfully.
[2022-12-27 15:35] VITALS: BP 141/85; PULSE 66; RESP 20; TEMP 36.8; O2SAT 95
--- NOTE | 2022-12-27 15:44 | P.BOP_ITS ---
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
== END 2022-12-27 15:50 | disposition home or self-care (01) ==
PROVIDERS: PCP Nurse Practitioner Family; Visit Provider Anesthesiology
PROC: (CPT 64635; principal; 2022-12-27 14:30)
DX: M47.816 Spondylosis without myelopathy or radiculopathy, lumbar region (principal); M51.36 Other intervertebral disc degeneration, lumbar region; G89.4 Chronic pain syndrome; M96.1 Postlaminectomy syndrome, not elsewhere classified; Z88.0 Allergy status to penicillin; Z88.1 Allergy status to other antibiotic agents
CPT/HCPCS: 64635; 64636 ×2; J2795; J3301

== ENCOUNTER → 2022-12-27 13:21 | Outpatient (BNV) | payer OTHER, SELFPAY | PROVIDERS: PCP Nurse Practitioner Family; Visit Provider Anesthesiology | DX: M47.816 Spondylosis without myelopathy or radiculopathy, lumbar region (principal) | CPT/HCPCS: 64635; 64636 ==

== ENCOUNTER 2023-01-03 15:33 | Outpatient (AMB) | payer OTHER, SELFPAY ==
--- NOTE | 2023-01-03 15:36 | MHC.PC.OV ---
Vital Signs 01/03/23 15:38 Height 5 ft 10 in Weight 260 lb BMI 37.3 BP 110/78 Blood Pressure Location Rt brachial Position Sitting Pulse 68 Pulse Source Pulse Oximeter Pulse Oximetry (%) 95 Oxygen Delivery Method Room Air Intake Visit Reasons: PE Allergies amoxicillin [AMOXICILLIN] Allergy (Intermediate, Verified 01/03/23 15:39) HIVES penicillin V Allergy (Unknown, Verified 01/03/23 15:39) hives penicillin Allergy (Unknown, Uncoded 01/03/23 15:39) Hives Medication List - Last Reconciled 01/03/23 by JUSTYN Cleveland-VAN acetaminophen (Tylenol Extra Strength) 1,000 mg PO Q6H PRN atorvastatin 20 mg PO BEDTIME 90 days cyclobenzaprine 10 mg PO TID PRN 14 days fluticasone propionate 50 mcg/actuation (Flonase Allergy Relief) 2 sprays intranasal DAILY 30 days Tobacco use date assessed: 06/28/22 Dental Screening Dental Screen Date: 01/03/23 Did you have a dental visit in the last 12 months?: Yes Did you have a dental problem in the last 6 months where you did not have access to dental care?: No Was dental information given to patient?: Patient has dentist HPI PE HPI Details Pt is here for a PE. Will order labs. PSA is up to date. Pt does report that he sometimes does not feel like he is emptying his bladder. Denies dribbling with urination, weak stream, and frequent nocturia. He has seen a urologist for this in the past. PSA WNL. Pt has not been able to get ahold of the GI office to schedule an appointment. Will reach out to them. Radio Freq. Ablation to lumbar region on 2022. Pt reports the radicular symptoms have ceased, though has soreness to his lower transverse back to lower thoracic region (paraspinous muscles). Hopefully in the near future his symptoms will get better. Dyslipidemia: Will start atorvastatin 20mg and repeat labs. Starting statin for elevated LDL and choles. repeat labs in 2 months [facility] Medical History Acute middle ear effusion Surgical History (Updated 01/03/23 @ 16:05 by JUSTYN Cleveland-VAN) History of lumbar laminectomy S/P lumbar laminectomy Hx of tonsillectomy H/O shoulder surgery Family History Other H/O shoulder surgery History of lumbar laminectomy Hx of tonsillectomy Social History Patient Tobacco Use Status: Never used Tobacco e-Cigarette/Vaping Use: Never Used Second Hand Smoke Exposure: No service: Yes Current occupational status: employed Current occupational exposures/hazards: Yes Cognitive needs: No Hearing needs: No Vision needs: No Questionnaire PHQ-9 Over the last 2 weeks, how often have you been bothered by any of the following problems? 1. Little interest or pleasure in doing things: not at all 2. Feeling down, depressed, or hopeless: not at all 3. Trouble falling or staying asleep, or sleeping too much: not at all 4. Feeling tired or having little energy: not at all 5. Poor appetite or overeating: not at all 6. Feeling bad about yourself - or that you are a failure or have let yourself or your family down: not at all 7. Trouble concentrating on things, such as reading the newspaper or watching television: not at all 8. Moving or speaking so slowly that other people could have noticed. Or the opposite - being so fidgety or restless that you have been moving around a lot more than usual: not at all 9. Thoughts that you would be better off or of hurting yourself in some way: not at all Total score: 0 Depression Screening Interpretation: Negative Depression Screening Done: Yes 51452 - PHQ-9 Billing: Yes Source: Developed by Drs. Alexis Qiu, Chandrika Copeland, Juarez Hoffmann and colleagues, with an educational cecy from [employer]. Thrive Questionnaire Date Thrive assessed: 01/03/23 I am a: Patient What is your living situation today?: I have a steady place to live Within the past 12 months, did the food you bought not last and you didn't have the money to get more?: Never true Within the past 12 months, did you worry whether your food would run out before you got money to buy more?: Never true Do you have trouble paying for medicines?: No Do you have trouble getting transportation to medical appointments?: No Do you have trouble paying your heating and electricity bill?: No Do you have trouble taking care of your child, family member or friend?: No Do you have trouble with day-to-day activities such as bathing, preparing meals, shopping, managing finances, etc.?: No Are you currently unemployed and looking for a job?: Yes Are you interested in more education?: No Currently or been in a relationship where the following occur: no concerns reported AUDIT C Alcohol Use Questionnaire (AUDIT-C) 1. How often do you have a drink containing alcohol?: 2-3 times a week 2. How many drinks containing alcohol do you have on a typical day when you are drinking?: 1 or 2 3. How often do you have six or more drinks on one occasion?: Never Total Score: 3 Score Reviewed/Action Taken: No JAYLIN-7 AMB Questionnaire JAYLIN-7 Date JAYLIN - 7 assessed: 01/03/23 Feeling nervous, anxious, or on edge: 0 = Not at all Not being able to stop or control worryin = Not at all Worrying too much about different things: 0 = Not at all Trouble relaxin = Not at all Being so restless that it is hard to sit still: 0 = Not at all Becoming easily annoyed or irritable: 0 = Not at all Feeling afraid as if something awful might happen: 0 = Not at all Total JAYLIN-7 score (0-4 normal; 5-9 mild; 10-14 moderate; 15-21 severe): 0 Source: Developed by Drs. Alexis Qiu, Chandrika Copeland, Juarez Hoffmann and colleagues, with an educational cecy from [employer]. JAYLIN-7 Assessment Billing JAYLIN-7 Assessment Tool: JAYLIN-7 Assessment 44327 Review of Systems Const Denies chills and Denies fever(s) Eyes Denies blurry vision ENT Denies vertigo, Denies dizziness and Denies sore throat Card Denies chest pain at rest, Denies chest pain with activity, Denies diaphoresis, Denies dyspnea and Denies dyspnea on exertion Resp Denies cough, Denies dyspnea, Denies dyspnea on exertion and Denies wheezing GI Denies abdominal pain, Denies melena, Denies hematochezia, Denies constipation, Denies diarrhea and Denies loose stools Denies hematuria Musc Denies numbness and Denies tingling Skin/Breast Denies lesions Neuro Denies vertigo, Denies dizziness, Denies numbness and Denies tingling Psych Denies anxiety, Denies depression, Denies homicidal ideation, Denies suicidal ideation and Denies other (substance abuse) Aller/Immun Denies wheezing Physical exam (Primary Care) Vital Signs: Last Vital Signs Pulse 68 01/03/23 15:38 BP 110/78 01/03/23 15:38 Pulse Ox 95 01/03/23 15:38 Oxygen Delivery Method Room Air 01/03/23 15:38 BMI result Body Mass Index 37.3 Tobacco/Smoking Status: Tobacco use Status Tobacco use date assessed 06/28/22 01/03/23 15:38 Patient Tobacco Use Status Never used Tobacco 01/03/23 15:38 e-Cigarette/Vaping Use Never Used 01/03/23 15:38 PHQ-9: PHQ-9 Score PHQ-9: Total score 0 01/03/23 16:27 Depression Screening Interpretation: Negative Thrive Assessment: Date of Thrive Assessment Date Thrive assessed 01/03/23 01/03/23 16:27 Currently or been in a relationship where the following occur: no concerns reported Const General: cooperative Nutritional Appearance: obese Orientation/consciousness: patient oriented x3 HENMT Head: Yes normal to inspection, Yes normocephalic and Yes atraumatic Ears: TM's normal bilaterally Eyes General: appearance normal, both eyes and all related structures Alignment and Position: alignment normal and position normal Neck Neck: Yes normal visual inspection and Yes no lymphadenopathy Thyroid: Thyroid normal Resp Effort & Inspection: normal respiratory effort Auscultation: clear to auscultation bilaterally Cardio Rate: regular rate Rhythm: regular rhythm Heart sounds: S1 normal heart sound present, S2 normal heart sound present and no murmurs GI Palpation (GI): Soft to palpation and nontender Auscultation: normal bowel sounds Male General Exam: Yes normal external exam Penis: normal penis Scrotum: scrotum normal, testes descended bilaterally and no inguinal hernias Testes: no testicular mass Back/Spine/Pelvis Other: turning upper torso exacerbated lower transverse back pain and lower thorasic back pain (paraspinous muscle region) Skin Rashes: no rashes Neuro General: patient oriented x3, moves all extremities, no focal motor deficits and deep tendon reflexes 2+ bilaterally Romberg Test: Negative Psych Appearance: grossly normal Mental Status: mental status grossly normal Speech and movement: Normal speech and movement present Affect: normal affect Attitude: cooperative Thought process: Normal thought process present Thought content: Normal thought content present Insight: Good insight present (Psych) Judgement: Good judgement present (Psych) Assessment and Plan Assessment & Plan (1) Dyslipidemia: Code(s): E78.5 - Hyperlipidemia, unspecified Plan: Starting atorvastatin, repeat labs ordered (2) H/O radiofrequency ablation (RFA) of nerve of lumbar spine: Comment: dec 27 2022 Code(s): Z98.890 - Other specified postprocedural states Plan: Continue to follow up with pain management and PT (3) Physical exam: Code(s): Z00.00 - Encounter for general adult medical examination without abnormal findings Plan The patient agreed to the use of a medical instructor for this encounter. Scribed for RAMON Vanegas by Mavis Erwin medical instructor, on 01/03/2023 at 15:45 EST. Orders: Orders Lipid Panel Today E78.5 - Hyperlipidemia, unspecified Comprehensive Met. Panel Today E78.5 - Hyperlipidemia, unspecified Medications: New atorvastatin 20 mg PO BEDTIME 90 tabs 0RF 90 days Coding Level of Care Code Est Pt Prev Care 40-64y(51870) Diagnoses Dyslipidemia E78.5 H/O radiofrequency ablation (RFA) of nerve of lumbar spine Z98.890 Physical exam Z00.00 Additional Codes JAYLIN-7 Assessment Billing - JAYLIN-7 Assessment Tool: JAYLIN-7 Assessment 45178 ([id number])
[2023-01-03 15:38] VITALS: BP 110/78; PULSE 68; O2SAT 95; BMI 37.3
== END 2023-01-03 17:31 | disposition home or self-care (01) ==
PROVIDERS: PCP Nurse Practitioner Family; Visit Provider Nurse Practitioner Family
DX: E78.5 Hyperlipidemia, unspecified (principal); Z98.890 Other specified postprocedural states; Z00.00 Encounter for general adult medical examination without abnormal findings
CPT/HCPCS: 99396

== ENCOUNTER 2023-02-07 07:58 | Outpatient (AMB) | payer OTHER, SELFPAY ==
--- NOTE | 2023-02-07 08:02 | A.OFFVIS_ITS ---
Intake Vital Signs 02/07/23 08:07 Height 5 ft 10 in Weight 253 lb 8.505 oz BMI 36.4 BP 122/75 Blood Pressure Location Lt brachial Position Sitting Pulse 68 Intake Visit Reasons: Colonoscopy Screening Intake Note: Chris presents in the office as a new patient for colonoscopy screening. CC: He does not have any concerns. Skimmer Reverberatory Required: No Allergies amoxicillin [AMOXICILLIN] Allergy (Intermediate, Verified 02/07/23 08:08) HIVES penicillin V Allergy (Unknown, Verified 02/07/23 08:08) hives penicillin Allergy (Unknown, Uncoded 02/07/23 08:08) Hives Medication List - Last Reconciled 02/07/23 by Maribel Blancas PA-C acetaminophen (Tylenol Extra Strength) 1,000 mg PO Q6H PRN atorvastatin 20 mg PO BEDTIME 90 days fluticasone propionate 50 mcg/actuation (Flonase Allergy Relief) 2 sprays intranasal DAILY 30 days HPI HPI Comments History of Present Illness Details A 52 y/o male referred for screening colonoscopy He has no GI complaints. He has a normal bowel pattern, he has very good appetite. No respiratory or cardiac issues No known family history of GI cancer No nausea, vomiting, hematemesis, hematochezia fever or chills PFSH Medical History (Updated 02/07/23 @ 09:35 by Maribel Blancas PA-C) Acute middle ear effusion Surgical History History of esophagogastroduodenoscopy (EGD) Hx of colonoscopy History of lumbar laminectomy S/P lumbar laminectomy Hx of tonsillectomy H/O shoulder surgery Family History Other H/O shoulder surgery History of lumbar laminectomy Hx of tonsillectomy Social History Patient Tobacco Use Status: Never used Tobacco e-Cigarette/Vaping Use: Never Used Second Hand Smoke Exposure: No service: Yes Current occupational status: employed Current occupational exposures/hazards: Yes Cognitive needs: No Hearing needs: No Vision needs: No Review of Systems Const All systems reviewed & are unremarkable except as noted in HPI and below Card Denies chest pain and Denies dyspnea Resp Denies dyspnea GI Denies abdominal pain, Denies change in bowel habits and Denies heartburn Physical Exam Vital Signs: Last Vital Signs Pulse 68 02/07/23 08:07 BP 122/75 02/07/23 08:07 BMI result Body Mass Index 36.4 Const General: cooperative, healthy appearing, comfortable and no acute distress Orientation/consciousness: patient oriented x3 Limitations: no limitations Eyes Sclerae: sclerae normal Resp Effort & Inspection: normal respiratory effort and able to speak in complete sentences Auscultation: clear to auscultation bilaterally, no rales, no rhonchi and no wheezes Cardio Rate: regular rate Rhythm: regular rhythm Heart sounds: S1 normal heart sound present and S2 normal heart sound present GI Palpation (GI): Soft to palpation and nontender Auscultation: normal bowel sounds Skin General skin exam: no rashes or lesions noted Neuro General: patient oriented x3 Extrem General: Yes full ROM Psych Appearance: grossly normal and well kempt Mental Status: mental status grossly normal Speech and movement: Normal speech and movement present and Clear speech present Affect: normal affect Attitude: cooperative Thought process: Normal thought process present Thought content: Normal thought content present Insight: Good insight present (Psych) Judgement: Good judgement present (Psych) Assessment & Plan Assessment & Plan (1) Screening for colon cancer: Comment: Very pleasant, referred for screening colonoscopy Colonoscopy years ago, no record Code(s): Z12.11 - Encounter for screening for malignant neoplasm of colon Plan Screening colonoscopy MiraLax Gatorade prep Orders: Orders Colonoscopy - GI Use Only Today Z12.11 - Encounter for screening for malignant neoplasm of colon Medications: New polyethylene glycol 3350 (Miralax) Take as directed by mouth the day before your procedure. 238 grams PO ONCE PRN 238 grams 0RF laxative effect 1 day bisacodyl (Dulcolax (bisacodyl)) Day before procedure, prep day Take 4 tablets by mouth upon awakening followed by large glass of water 20 mg (4 x 5 mg) PO ONCE 4 tabs 0RF colonoscopy prep 1 day Z12.11 - Encounter for screening for malignant neoplasm of colon Patient Instructions: Screening colonoscopy MiraLax Gatorade prep Reviewed, literature given Escorted due to anesthesia Where risks discussed Encouraged to call questions or concerns Coding Level of Care Code New Pt Level 3 (07888) Diagnoses Screening for colon cancer Z12.11 Time Spent (min) 30
[2023-02-07 08:07] VITALS: BP 122/75; PULSE 68; BMI 36.4
== END 2023-02-07 08:40 | disposition home or self-care (01) ==
PROVIDERS: PCP Nurse Practitioner Family; Visit Provider Physician Assistant
DX: Z01.818 Encounter for other preprocedural examination (principal); Z12.11 Encounter for screening for malignant neoplasm of colon
CPT/HCPCS: S0285

== ENCOUNTER → 2023-02-07 07:58 | Outpatient (BNVA) | payer OTHER, SELFPAY | PROVIDERS: PCP Nurse Practitioner Family; Visit Provider Physician Assistant ==

== ENCOUNTER 2023-02-15 10:54 | Outpatient (REF) | payer OTHER, SELFPAY | END 2023-02-15 10:55 | disposition home or self-care (01) | LOC: HO.XRAY 10:54 | PROVIDERS: PCP Nurse Practitioner Family; Visit Provider Nurse Practitioner Family | DX: M54.50 Low back pain, unspecified (principal); M53.3 Sacrococcygeal disorders, not elsewhere classified; M25.551 Pain in right hip; M25.552 Pain in left hip; M47.816 Spondylosis without myelopathy or radiculopathy, lumbar region; Z98.890 Other specified postprocedural states | CPT/HCPCS: 73521; 99212 ==

== ENCOUNTER 2023-02-15 10:54 | Outpatient (AMB) | payer OTHER, SELFPAY ==
--- NOTE | 2023-02-15 10:57 | MHC.OFFVIS ---
Intake Vital Signs 02/15/23 11:03 Height 5 ft 10 in Weight 248 lb BMI 35.6 BP 138/93 H Blood Pressure Location Rt brachial Position Sitting Pulse 63 Pulse Source Pulse Oximeter Pulse Oximetry (%) 99 Oxygen Delivery Method Room Air Intake Visit Reasons: BILAT L3-L4-L5 RFA/LOCAL/LMOVM Intake Note: Pain today 5/10 Network Systems Analyst Required: No Accompanied by: Self / Same As Patient Allergies amoxicillin [AMOXICILLIN] Allergy (Intermediate, Verified 02/15/23 11:04) HIVES penicillin V Allergy (Unknown, Verified 02/15/23 11:04) hives penicillin Allergy (Unknown, Uncoded 02/07/23 08:08) Hives HPI HPI Comments History of Present Illness Details Patient presents today status post L3-L4-DR L5 bilateral medial branches RFA with Dr. Lawson on 12/27/22. Patient reports 75-80% ongoing pain relief since procedure with improvement in his functioning, movements, mobility, range of motions and improved sleep. Patient now reports pain in his bilateral sacral areas with radiation to his lateral hips, worse on the right. He has a slight leg discrepancy, with right leg being a bit longer. We will proceed with hip and pelvis imaging to further evaluate these areas for potential interventional treatments. Denies any recent cough, cold, infection, fever, abdominal or groin pain, weakness, foot drop, bladder or bowel dysfunction, saddle anesthesia or other significant changes in medical history since last office visit. PRIOR Dr. Lawson 10/25/22: Chris is back in my office after diagnostic medial branch block L2-L3 L4 dorsal ramus L5 bilateral diagnostic which was performed on 10/23/2022. He reports 100% pain relief immediately after the procedure 0/10 pain. 1 hour after the procedure he has pain was 2/10. 2 hours after the procedure the pain became 4/10. 3 hours of the procedure he report pain 0/10 he reported able to be sitting for long period of time reported absence of stiffness when he stood up. For hours after the procedures he had 0 pain in the back and 5 hours of the procedure he had pain 2/10 in the back. 6 hours after procedure pay started to come back to the baseline and was 5/10. Therefore it looks like that he has very significant pain relief. Usually during the daytime as he day progresses his pain is getting worse and more intense. After the injection he reported delay of the onset of the pain exacerbation, better mobility and better mood. He is interested in long-term solutions to treat his pain. I offered him sprint PNS versus RFA. All procedures were explained to the patient in great detail. The patient will think about it he will give us a call and inform us about his decision into which procedure he would like to go for. Limitations risks and benefits of all the potential treatments explained to the patient. Prior: he had neurosurgical procedure laminectomy and diskectomy form by Dr. Rowley. He reports that symptoms of radiculopathy pain and paresthesia going down to the lower extremity are much better after the surgery. However axial back pain is getting worse. As we planned before I decided to schedule him again for diagnostic medial branch block L3-L4 does ramus L5 bilateral. I will schedule him for this procedure clay. After procedure I will evaluate his pain again. Minimal suspicion for right sacroiliitis may justify future sacroiliac joint injection on the right if MBB will not help his pain. 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 He reports pain in the back with radiation to the hip he also reports tingling pins and needle sensation in the right foot.? Reports all the toes are affected.? ? He had an MRI of the lumbar spine which is dictated by below.? He went for physical therapy with core physical therapy and did not receive any pain improvement he went for chiropractic manipulation with no improvement he went for massage therapy with no improvement head 10s unit with no improvement.? He never had any injections.? [facility] Medical History Acute middle ear effusion Surgical History History of esophagogastroduodenoscopy (EGD) Hx of colonoscopy History of lumbar laminectomy S/P lumbar laminectomy Hx of tonsillectomy H/O shoulder surgery Family History Other H/O shoulder surgery History of lumbar laminectomy Hx of tonsillectomy Social History Patient Tobacco Use Status: Never used Tobacco e-Cigarette/Vaping Use: Never Used Second Hand Smoke Exposure: No service: Yes Current occupational status: employed Current occupational exposures/hazards: Yes Cognitive needs: No Hearing needs: No Vision needs: No Review of Systems Const All systems reviewed & are unremarkable except as noted in HPI and below Physical Exam Vital Signs: Last Vital Signs Pulse 63 02/15/23 11:03 BP 138/93 H 02/15/23 11:03 Pulse Ox 99 02/15/23 11:03 Oxygen Delivery Method Room Air 02/15/23 11:03 BMI result Body Mass Index 35.6 General: Appears afebrile. Alert and oriented. Mood and affect appropriate. Follows and participates in conversation appropriately. Respiratory effort is unlabored. No cough. Able to transition from sit to stand unassisted. Ambulates with bilaterally normal heel strike and toe off. Back/Spine/Pelvis Other: No midline tenderness to palpation in the thoracic or lumbar spine. No paraspinal tenderness to palpation in the lumbar spine. Mild to moderate TTP in the projection of bilateral SIJ areas, right>left. Lumbar extension or flexion does not reproduce pain. SI distraction, Andres?s test, side thrust and pelvic compression reproduce lateral hip pain bilaterally and right lower back pain. No groin pain with I/E hip rotations bilaterally. Cervical Spine: cervical ROM normal and No Cervical spine tenderness Thoracic/Lumbar Spine: thoracic and lumbar spine normal to inspection, No Thoracic/lumbar spine scar(s), thoraco-lumbar ROM normal, Lasegue's sign negative, straight leg raise negative bilaterally, No paraspinal muscle tenderness, No thoracic spinal tenderness and No lumbar spinal tenderness Pelvis: no buttock tenderness and no sciatic notch tenderness Sacroiliac joints: bilaterally tender to palpation Results Reviewed Results Reviewed: MRI lumbar spine 12/18/2021 Findings: The lumbar vertebral bodies within normal height and alignment. There is mild multilevel intervertebral disc height loss. Bone marrow edema is seen. The distal spinal cord appears normal. The conus medullaris terminates normally at L1 level. The visualized paraspinal muscles and intra-abdominal and pelvic contents are within normal limits. Spinal levels: T12-L1: Disc bulging with small central extrusion with mild superior migration. Mild flattening of the ventral thecal sac. Spinal canal or neural foraminal stenosis. L1-L2: Disc bulging with shallow central protrusion. No spinal canal or neural foraminal stenosis. L2-L3 disc bulging with annular fissuring mild flattening of ventral thecal sac. Narrowing of the left subarticular zone. No spinal canal stenosis. Mild left neural foraminal stenosis. L3-L4: Mild disc bulge with mild facet arthropathy left foraminal protrusion compresses the exiting left L3 nerve root. No spinal canal stenosis. L4-5: Disc bulging with right subarticular extrusion resulting in compression of the traversing right L4 nerve root. A small right-sided synovial facet cyst contributes to right subarticular stenosis at the disc level. Severe facet arthropathy. No significant spinal canal stenosis. Right foraminal protrusion mildly compresses the exiting right L4 nerve root. No significant left-sided neural foraminal stenosis. L5-S1: Disc bulging with focal central protrusion resulting in right more than left subarticular stenosis compression of the traversing right more than left left subarticular stenosis compressing of the traversing right more than left S1 nerve root. Moderate facet arthropathy. Mild right neural foraminal stenosis but without foraminal nerve root compression. Assessment & Plan Assessment & Plan (1) Low back pain: Code(s): M54.50 - Low back pain, unspecified (2) Sacroiliac joint pain: Code(s): M53.3 - Sacrococcygeal disorders, not elsewhere classified (3) Bilateral hip pain: Code(s): M25.551 - Pain in right hip; M25.552 - Pain in left hip (4) H/O radiofrequency ablation (RFA) of nerve of lumbar spine: Comment: dec 27 2022 Code(s): Z98.890 - Other specified postprocedural states (5) Spondylosis of lumbar region without myelopathy or radiculopathy: Code(s): M47.816 - Spondylosis without myelopathy or radiculopathy, lumbar region Plan Patient is status post bilateral L3-L4 L5 medial branch RFA with 75-80% ongoing pain relief. Patient reports improved daily functioning and improve sleep. We will proceed is bilateral hip and pelvic view imaging to assess for degenerative changes for this areas prior considering injections for sacroiliac or hip joints. Consider physical therapy or chiropractic therapy. All questions and concerns have been answered and patient agreed with the plan. Follow-up for x-ray results and sooner as needed. Orders: Orders XR hip BI w PEL1V Today M25.551 - Pain in right hip, M25.552 - Pain in left hip, M53.3 - Sacrococcygeal disorders, not elsewhere classified, M54.50 - Low back pain, unspecified Coding Level of Care Code Est Pt Level 4 (30986) Diagnoses Low back pain M54.50 Sacroiliac joint pain M53.3 Bilateral hip pain M25.551; M25.552 H/O radiofrequency ablation (RFA) of nerve of lumbar spine Z98.890 Spondylosis of lumbar region without myelopathy or radiculopathy M47.816
[2023-02-15 11:03] VITALS: BP 138/93; PULSE 63; O2SAT 99; BMI 35.6
== END 2023-02-15 11:17 | disposition home or self-care (01) ==
PROVIDERS: PCP Nurse Practitioner Family; Visit Provider Nurse Practitioner Family
DX: M25.551 Pain in right hip (principal); M25.552 Pain in left hip; M47.816 Spondylosis without myelopathy or radiculopathy, lumbar region; Z98.890 Other specified postprocedural states
CPT/HCPCS: 99214

== ENCOUNTER 2023-02-18 10:14 | Outpatient (AMB) | payer OTHER, SELFPAY ==
--- NOTE | 2023-02-18 10:20 | MHC.PC.OV ---
Vital Signs 02/18/23 10:21 Weight 255 lb BP 120/90 H Blood Pressure Location Rt brachial Position Sitting Pulse 63 Pulse Source Pulse Oximeter Pulse Oximetry (%) 98 Oxygen Delivery Method Room Air Intake Visit Reasons: Back pain Allergies amoxicillin [AMOXICILLIN] Allergy (Intermediate, Verified 02/18/23 10:21) HIVES penicillin V Allergy (Unknown, Verified 02/18/23 10:21) hives penicillin Allergy (Unknown, Uncoded 02/18/23 10:21) Hives Tobacco use date assessed: 06/28/22 Dental Screening Dental Screen Date: 02/18/23 Did you have a dental visit in the last 12 months?: Yes Did you have a dental problem in the last 6 months where you did not have access to dental care?: No Was dental information given to patient?: Patient has dentist HPI Back pain HPI Details Pt is currently following up with pain management due to lower back pain and bilat hip pain, see previous notes. He is also seeing neurosurgery. Hx of RFA. Denies any signs of cauda equina. 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 He currently describes none radicular lower transverse back pain. [facility] Medical History Acute middle ear effusion Surgical History History of esophagogastroduodenoscopy (EGD) Hx of colonoscopy History of lumbar laminectomy S/P lumbar laminectomy Hx of tonsillectomy H/O shoulder surgery Family History Other H/O shoulder surgery History of lumbar laminectomy Hx of tonsillectomy Social History Patient Tobacco Use Status: Never used Tobacco e-Cigarette/Vaping Use: Never Used Second Hand Smoke Exposure: No service: Yes Current occupational status: employed Current occupational exposures/hazards: Yes Cognitive needs: No Hearing needs: No Vision needs: No Questionnaire Thrive Questionnaire Date Thrive assessed: 01/03/23 JAYLIN-7 AMB Questionnaire JAYLIN-7 Date JAYLIN - 7 assessed: 01/03/23 Source: Developed by Drs. Alexis Qiu, Chandrika Copeland, Juarez Hoffmann and colleagues, with an educational cecy from [employer]. Review of Systems Const Reports as per HPI Physical exam (Primary Care) Vital Signs: Last Vital Signs Pulse 63 02/18/23 10:21 BP 120/90 H 02/18/23 10:21 Pulse Ox 98 02/18/23 10:21 Oxygen Delivery Method Room Air 02/18/23 10:21 Tobacco/Smoking Status: Tobacco use Status Tobacco use date assessed 06/28/22 02/18/23 10:23 Patient Tobacco Use Status Never used Tobacco 02/18/23 10:23 e-Cigarette/Vaping Use Never Used 02/18/23 10:23 Thrive Assessment: Date of Thrive Assessment Date Thrive assessed 01/03/23 02/18/23 10:23 Const General: cooperative Orientation/consciousness: patient oriented x3 Resp Effort & Inspection: normal respiratory effort Auscultation: clear to auscultation bilaterally Neuro General: patient oriented x3 Cranial nerves: Yes CN's II-XII intact bilaterally Motor exam (neuro): 5/5 motor strength present throughout Psych Appearance: grossly normal Mental Status: mental status grossly normal Speech and movement: Clear speech present Affect: normal affect Attitude: cooperative Thought process: Normal thought process present Thought content: Normal thought content present Insight: Good insight present (Psych) Judgement: Good judgement present (Psych) Assessment and Plan Assessment & Plan (1) Chronic pain syndrome: Code(s): G89.4 - Chronic pain syndrome Plan: Following up with pain management (2) Nerve root compression: Code(s): G54.9 - Nerve root and plexus disorder, unspecified Plan: Following up with pain management (3) Screening PSA (prostate specific antigen): Code(s): Z12.5 - Encounter for screening for malignant neoplasm of prostate Plan The patient agreed to the use of a medical reimbursement specialist for this encounter. Scribed for RAMON Vanegas by Mavis Erwin medical reimbursement specialist, on 02/18/2023 at 10:35 EST. Orders: Orders Complete Blood Count Auto Diff 6 Months Z00.00 - Encounter for general adult medical examination without abnormal findings TSH reflex Free T4 6 Months Z00.00 - Encounter for general adult medical examination without abnormal findings UA CC w/rflx Micro + Cult 6 Months Z00.00 - Encounter for general adult medical examination without abnormal findings Comprehensive [place]. Panel Fast 6 Months Z00.00 - Encounter for general adult medical examination without abnormal findings Lipid Panel 6 Months Z00.00 - Encounter for general adult medical examination without abnormal findings Prostate Specific Antigen Scr 6 Months Z12.5 - Encounter for screening for malignant neoplasm of prostate Coding Level of Care Code Est Pt Level 3 (88673) Diagnoses Chronic pain syndrome G89.4 Nerve root compression G54.9 Screening PSA (prostate specific antigen) Z12.5
[2023-02-18 10:21] VITALS: BP 120/90; PULSE 63; O2SAT 98
== END 2023-02-18 10:57 | disposition home or self-care (01) ==
PROVIDERS: PCP Nurse Practitioner Family; Visit Provider Nurse Practitioner Family
DX: G89.4 Chronic pain syndrome (principal); G54.9 Nerve root and plexus disorder, unspecified; Z12.5 Encounter for screening for malignant neoplasm of prostate
CPT/HCPCS: 99213

== ENCOUNTER 2023-06-07 10:11 | Outpatient (REF) | payer OTHER, SELFPAY ==
[2023-06-07 14:35] LABS: Alanine Aminotransferase 33 U/L (0-40); Albumin Level 4.5 g/dL (3.5-5.0); Alkaline Phosphatase 50 U/L (39-117); Anion Gap 13 (12-20); Aspartate Amino Transferase 23 U/L (5-37); Bilirubin Total 0.3 mg/dL (0.0-1.0); Blood Urea Nitrogen 11 mg/dL (9-16); Calcium 9.8 mg/dL (8.4-10.2); Carbon Dioxide 25 mmol/L (22-29); Chloride 105 mmol/L (96-108); Cholesterol 172 mg/dL (<200); Estimated Glomerular Filt Rate > 60; Glucose Fasting 103 mg/dL (60-99); Glucose Random 102 mg/dL (60-115); HDL Cholesterol 49 mg/dL (>40); LDL Cholesterol Calculated 92 mg/dL (<100); Potassium 4.2 mmol/L (3.3-5.1); Sodium 139 mmol/L (135-145); Total Protein 7.6 g/dL (6.5-8.0); Triglycerides 156 mg/dL (<150)
== END 2023-06-07 10:12 | disposition home or self-care (01) ==
LOC: HO.HMGCLDS 10:11
PROVIDERS: PCP Nurse Practitioner Family; Visit Provider Nurse Practitioner Family
DX: E78.5 Hyperlipidemia, unspecified (principal)
CPT/HCPCS: 36415; 80053; 80061

== ENCOUNTER 2023-06-12 10:02 | Day surgery (SDC) | payer OTHER, SELFPAY ==
[2023-06-12 10:50] VITALS: BMI 38.4
[2023-06-12 11:25] VITALS: BP 121/76; PULSE 58; RESP 15; TEMP 36.8; O2SAT 94
[2023-06-12] MEDS: Lactated Ringers 1,000 ML 100 ML IVCONT (11:32)
--- NOTE | 2023-06-12 11:45 | P.CONAN_ITS ---
Documented by User: Frannie David NP 06/11/23 11:07 HPI - Anesthesia Eval Consult details Narrative: 53yo M for Colonoscopy PMFSH Active Problems Active Problems: All Active Problems (Updated 02/15/23 @ 11:11 by JUSTYN Mendez) Sacroiliac joint pain (Acute) Bilateral hip pain (Acute) H/O radiofrequency ablation (RFA) of nerve of lumbar spine (Acute) Dyslipidemia (Acute) Screening for colon cancer (Acute) Screening PSA (prostate specific antigen) (Acute) Physical exam (Acute) Cough (Acute) Sinusitis (Acute) Radiculopathy due to disorder of intervertebral disc (Acute) Radiculopathy, lumbar region (Acute) Chronic pain syndrome (Acute) Disc degeneration, lumbar (Acute) Spondylosis of lumbar region without myelopathy or radiculopathy (Acute) Nerve root compression (Acute) Low back pain radiating to lower extremity (Acute) Dermatitis (Acute) Low back pain (Acute) Viral illness (Acute) Otitis media, right (Acute) Cervical muscle strain (Acute) Knee pain (Acute) Ankle injury (Acute) Otitis media (Acute) Upper respiratory infection (Acute) Sinusitis, acute (Acute) Acute middle ear effusion (Acute) Past Medical History Medical History (Updated 06/12/23 @ 10:49 by Sera Orlando RN) Elevated cholesterol Acute middle ear effusion Family History Family History Other H/O shoulder surgery History of lumbar laminectomy Hx of tonsillectomy Surgical History Surgical History History of esophagogastroduodenoscopy (EGD) Hx of colonoscopy History of lumbar laminectomy S/P lumbar laminectomy Hx of tonsillectomy H/O shoulder surgery Social History Social History Patient Tobacco Use Status: Never used Tobacco e-Cigarette/Vaping Use: Never Used Second Hand Smoke Exposure: No Use of substances other than those prescribed or required for medical reasons: No Are you DNR?: No Advance Directives: No Advance Directives Information Provided: Yes service: Yes Current occupational status: employed Current occupational exposures/hazards: Yes Cognitive needs: No Hearing needs: No Vision needs: No Meds Allergies Allergy/AdvReac Type Severity Reaction Status Date / Time amoxicillin [AMOXICILLIN] Allergy Intermediate HIVES Verified 06/12/23 10:50 penicillin V Allergy Unknown hives Verified 06/12/23 10:50 penicillin Allergy Unknown Hives Uncoded 02/18/23 10:21 Home Medications Medication Instructions Recorded Confirmed Last Taken Type acetaminophen 500 mg tablet 1,000 mg PO Q6H PRN Pain 11/30/21 06/12/23 Unknown History (Tylenol Extra Strength) Assessment and Plan Assessment Anesthesia Assessment: Chart Reviewed Documented by User: Sera Ladd DO 06/12/23 11:50 PMFSH Past Medical History Medical History (Updated 06/12/23 @ 10:49 by Sera Orlando RN) Elevated cholesterol Acute middle ear effusion Family History Family History Other H/O shoulder surgery History of lumbar laminectomy Hx of tonsillectomy Family history of problems with anesthesia: No Surgical History Surgical History History of esophagogastroduodenoscopy (EGD) Hx of colonoscopy History of lumbar laminectomy S/P lumbar laminectomy Hx of tonsillectomy H/O shoulder surgery History of Problems with Anesthesia: No Social History Social History (Reviewed 02/18/23 @ 11:42 by JUSTYN [facility]) Patient Tobacco Use Status: Never used Tobacco e-Cigarette/Vaping Use: Never Used Second Hand Smoke Exposure: No Use of substances other than those prescribed or required for medical reasons: No Are you DNR?: No Advance Directives: No Advance Directives Information Provided: Yes service: Yes Current occupational status: employed Current occupational exposures/hazards: Yes Cognitive needs: No Hearing needs: No Vision needs: No Meds Allergies Allergy/AdvReac Type Severity Reaction Status Date / Time amoxicillin [AMOXICILLIN] Allergy Intermediate HIVES Verified 06/12/23 10:50 penicillin V Allergy Unknown hives Verified 06/12/23 10:50 penicillin Allergy Unknown Hives Uncoded 02/18/23 10:21 Home Medications Medication Instructions Recorded Confirmed Last Taken Type acetaminophen 500 mg tablet 1,000 mg PO Q6H PRN Pain 11/30/21 06/12/23 Unknown History (Tylenol Extra Strength) Exam Exam Date and Time: June 12, 2023 1140 Height,Weight and Vital Signs: Height 5 ft 10 in Weight 121.563 kg Vital Signs Temperature 98.3 F 06/12/23 11:25 Pulse Rate 58 06/12/23 11:25 Respiratory Rate 15 06/12/23 11:25 Blood Pressure 121/76 06/12/23 11:25 Pulse Oximetry 94 06/12/23 11:25 Oxygen Delivery Method Room Air 06/12/23 11:25 Temperature 98.3 F 06/12/23 11:25 Pulse Rate 58 06/12/23 11:25 Respiratory Rate 15 06/12/23 11:25 Blood Pressure 121/76 06/12/23 11:25 Pulse Oximetry 94 06/12/23 11:25 Oxygen Delivery Method Room Air 06/12/23 11:25 Airway Mallampati Class: II TM Dist: >3cm Neck ROM: Full Loose/Missing/Broken Teeth: No (patient denies any loose or broken teeth) Heart: S1S2 Lungs: CTAB Assessment and Plan Final Anesthetic Review Family History of Problems with Anesthesia: No History of Problems with Anesthesia: No NPO: Yes ASA Class: II Final Preanesthetic Review: No Changes in Pt Med Stat, Meds/Allgs Chart Reviewed, Consent Obtained/Reviewed and Anes Risks/Benef Reviewed Patient Risk: Low Procedure Risk: Low Anesthetic Plan Anesthetic Plan: MAC: and Agree w/ Assess. and Plan Disposition: Standard PACU
--- NOTE | 2023-06-12 12:22 | P.HPSUR_ITS ---
Pre-Procedural Eval Section A - 24 Hr Update-Section A only Date of Service: 06/12/23 Section B - Complete if H&P > 30 days Chief Complaint: Encounter for screening for malignant neoplasm of Relevant Family History (Specify if Yes): No Relevant Social History: None Present Medications: see Short Stay Collaborative assessment Medical History: Significant History (Elevated cholesterol Acute middle ear ef fusion) History of Previous Operations: Relevant previous surgery/procedure and date(s) ( History of esophagogastroduodenoscopy (EGD) Hx of colonoscopy History of lumbar laminectomy S/P lumbar laminectomy Hx of tonsillectomy H/O shoulder surgery) Allergies: Allergies Allergy/AdvReac Type Severity Reaction Status Date / Time amoxicillin [AMOXICILLIN] Allergy Intermediate HIVES Verified 06/12/23 10:50 penicillin V Allergy Unknown hives Verified 06/12/23 10:50 penicillin Allergy Unknown Hives Uncoded 02/18/23 10:21 Review of Systems Sugical H&P ROS: Negative: Constitution, Cardiovascular, Respiratory, Neurological, Psychiatric, Hem-Onc, Allergic/Immunologic, Gastrointestinal, Genitourinary, Musculoskeletal, Integumentary, Endocrine and Eyes/Ears/Nose/Throat Exam Surgical H&P Exam: Normal: HEENT, Normal: Heart, Normal: Lungs, Normal: Extremities, Normal: Abdomen, Normal: Skin and Normal: Neurological Plan Diagnosis/Plan: Unchanged I have reviewed the history and physical and performed a pertinent physical examination on my patient. No changes have occurred unless specified. Time Spent With Patient Time: Total time managing care of this patient today ____ minutes.
--- NOTE | 2023-06-12 12:23 | W.PM.OPN ---
Operative Note Operative Note Date of Service: 06/12/23 Narrative: Operative Information Procedure Description: Colonoscopy Indication: screening Anesthesia: MAC COLONOSCOPY Instrument: Olympus variable stiffness ADULT scope 190L Colonoscopy Monitoring: Vital signs and clinical assessment, continuous EKG monitoring, Pulse oximetry, Carbon Dioxide monitoring and blood pressure monitoring were done throughout the procedure. Colon withdrawal time was 22 minutes. Procedure: The patient was placed in the left lateral decubitis position and pre-procedure medications were administered. After a digital rectal examination of the ano-rectum, the video colonoscope was inserted into the rectum and advanced through the colon to the cecum/TI. The colonoscope was slowly withdrawn in a retrograde panoramic fashion and the colon mucosa was carefully examined including a retroflexed view of the rectum. Findings and interventions are described below. Procedure Difficulty: Findings: Terminal Ileum-not intubated Cecum:normal Ascending Colon: 4-6 mm sessile polyp removed with cold snare Transverse Colon -normal Descending Colon:normal Sigmoid Colon: normal Rectum: Retroflexion with small internal hemorrhoids seen, grade I Anorectum - normal Intervention: cold snare Colon preparation: [place] Bowel Preparation Scale Right colon; 2 Transverse colon: 3 Left colon; 3 (0 = Unprepared colon segment with mucosa not seen due to solid stool that cannot be cleared. 1 = Portion of mucosa of the colon segment seen, but other areas of the colon segment not well seen due to staining, residual stool and/or opaque liquid. 2 = Minor amount of residual staining, small fragments of stool and/or opaque liquid, but mucosa of colon segment seen well. 3 = Entire mucosa of colon segment seen well with no residual staining, small fragments of stool or opaque liquid) Impression and Post Procedure Diagnosis: colon polyp internal hemorrhoids Plan: High fiber diet leaflet Avoid straining at stool, epsom salts and sitz bath, anusol supps or cream Repeat Colonoscopy in 5-7 years due to polyp or earlier if clinically indicated Above findings were reviewed with the patient and relevant handouts were provided if indicated.
[2023-06-12 13:11] VITALS: BP 103/67; PULSE 60; RESP 16; TEMP 36.1; O2SAT 94
[2023-06-12 13:26] VITALS: BP 114/75; PULSE 68; RESP 16; TEMP 36.4; O2SAT 97
== END 2023-06-12 13:48 | disposition home or self-care (01) ==
PROVIDERS: PCP Nurse Practitioner Family; Visit Provider Internal Medicine Gastroenterology
PROC: 0DJD8ZZ Inspection of Lower Intestinal Tract, Via Natural or Artificial Opening Endoscopic (ICD-10-PCS; CPT 45378; principal; 2023-06-12 13:40)
DX: Z12.11 Encounter for screening for malignant neoplasm of colon (principal); K63.5 Polyp of colon; K64.0 First degree hemorrhoids; Z88.0 Allergy status to penicillin
CPT/HCPCS: 45385; 88305; J2704

== ENCOUNTER → 2023-06-12 10:02 | Outpatient (BNV) | payer OTHER, SELFPAY | PROVIDERS: PCP Nurse Practitioner Family; Visit Provider Internal Medicine Gastroenterology | DX: Z12.11 Encounter for screening for malignant neoplasm of colon (principal); K63.5 Polyp of colon; K64.0 First degree hemorrhoids | CPT/HCPCS: 45385 ==

== ENCOUNTER 2023-07-25 11:34 | Outpatient (AMB) | payer OTHER, SELFPAY ==
--- NOTE | 2023-07-25 11:39 | MHC.OFFVIS ---
Vital Signs 07/25/23 11:42 Height 5 ft 10 in Weight 271 lb 2.697 oz BMI 38.9 BP 137/78 Blood Pressure Location Lt brachial Position Sitting Pulse 64 Intake Visit Reasons: s/p colon [place] Intake Note: Scot presents in the office as a follow up colonoscopy CC: No concerns. 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: No Allergies amoxicillin [AMOXICILLIN] Allergy (Intermediate, Verified 07/25/23 11:42) HIVES penicillin V Allergy (Unknown, Verified 07/25/23 11:42) hives penicillin Allergy (Unknown, Uncoded 07/25/23 11:42) Hives HPI Comments Details: A 53 y/o male f/u after screening colonoscopy- he has no complaints All is good -appetite is great no issues with bowels- Tolerated procedure well Reviewed procedure report, pathology as well as recommended No nausea, vomiting, hematemesis, hematochezia fever PFSH Medical History (Updated 07/29/23 @ 12:59 by Maribel Blancas PA-C) Elevated cholesterol Acute middle ear effusion Surgical History History of esophagogastroduodenoscopy (EGD) Hx of colonoscopy History of lumbar laminectomy S/P lumbar laminectomy Hx of tonsillectomy H/O shoulder surgery Family History Other H/O shoulder surgery History of lumbar laminectomy Hx of tonsillectomy Social History Patient Tobacco Use Status: Never used Tobacco e-Cigarette/Vaping Use: Never Used Second Hand Smoke Exposure: No service: Yes Current occupational status: employed Current occupational exposures/hazards: Yes Cognitive needs: No Hearing needs: No Vision needs: No Review of Systems Const All systems reviewed & are unremarkable except as noted in HPI and below Card Denies chest pain and Denies dyspnea Resp Denies dyspnea GI Denies abdominal pain Physical Exam Vital Signs: Last Vital Signs Pulse 64 07/25/23 11:42 BP 137/78 07/25/23 11:42 BMI result Body Mass Index 38.9 Const General: cooperative, healthy appearing, comfortable and no acute distress Orientation/consciousness: patient oriented x3 Limitations: no limitations Neuro General: patient oriented x3 Psych Appearance: grossly normal and well kempt Mental Status: mental status grossly normal Speech and movement: Normal speech and movement present Affect: normal affect Attitude: cooperative Thought process: Normal thought process present Thought content: Normal thought content present Insight: Good insight present (Psych) Judgement: Good judgement present (Psych) Results Reviewed Results Reviewed: e/Sex: 53/M Attending: Juanpablo Eubanks MD : 1970 Submitted by: Juanpablo Eubanks MD Copies to: Bradley Murphy [facility]- MR #: [id number] Status: DEP SDC Collected: 06/12/23 Location: .[facility] Received: 06/12/23 Diagnosis Colon, ascending, polyp: Consistent with hyperplastic polyp. Comment: Sessile serrated lesion without dysplasia cannot be ruled out in any residual lesion. Follow- up is warranted. mpression and Post Procedure Diagnosis: colon polyp internal hemorrhoids Plan: High fiber diet leaflet Avoid straining at stool, epsom salts and sitz bath, anusol supps or cream Repeat Colonoscopy in 5-7 years due to polyp or earlier if clinically indicated [phone] NOTE: Unless otherwise stated, all tissue is formalin-fixed and paraffin-embedded. Some or all of the immunohistochemical tests reported herein may have been developed and their performance characteristics determined by [facility]. They have not been cleared or approved by the U.S. Food and Drug Administration (FDA). However, the FDA has determined that such clearance or approval is not necessary. This laboratory is certified under the Clinical Laboratory Improvement Amendments of 1988 (CLIA) as qualified to perform high complexity clinical laboratory testing. Patient: Chris Ahumada Age/Sex: 53/M MR#: [id number] Page 1 of 2 Assessment & Plan Assessment & Plan (1) Sessile colonic polyp: Comment: Due to polyp type repeat for polyp surveillance 5 years Code(s): K63.5 - Polyp of colon Category: Medical Plan: 5 year Plan 5 year recall colon Please place reminder Patient Instructions: Five year recall colonoscopy-reminder to be placed Reinforced importance of all first-degree relatives begin colon screenings by age 45 Encouraged to call with any questions or concerns Coding Level of Care Code Est Pt Level 3 (52174) Diagnoses Sessile colonic polyp K63.5 Time Spent (min) 25
[2023-07-25 11:42] VITALS: BP 137/78; PULSE 64; BMI 38.9
== END 2023-07-25 13:17 | disposition home or self-care (01) ==
PROVIDERS: PCP Nurse Practitioner Family; Referring Provider Nurse Practitioner Family; Visit Provider Physician Assistant
DX: K63.5 Polyp of colon (principal)
CPT/HCPCS: 99213

== ENCOUNTER → 2023-07-25 11:34 | Outpatient (BNVA) | payer OTHER, SELFPAY | PROVIDERS: PCP Nurse Practitioner Family; Visit Provider Physician Assistant | DX: K63.5 Polyp of colon (principal) | CPT/HCPCS: 99212 ==

== ENCOUNTER 2023-10-24 10:28 | Outpatient (AMB) | payer OTHER, SELFPAY ==
--- NOTE | 2023-10-24 10:30 | A.OFFPC_ITS ---
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 Accompanied by: Self / Same As Patient Allergies amoxicillin [AMOXICILLIN] Allergy (Intermediate, Verified 10/24/23 10:48) HIVES penicillin V Allergy (Unknown, Verified 10/24/23 10:48) hives penicillin Allergy (Unknown, Uncoded 07/25/23 11:42) Hives Medication List - Last Reconciled 10/24/23 by RAMON Cleveland acetaminophen (Tylenol Extra Strength) 1,000 mg PO Q6H PRN atorvastatin 20 mg PO BEDTIME dexamethasone 4 mg PO DAILY 9 days fluticasone propionate 50 mcg/actuation (Flonase Allergy Relief) 2 sprays intranasal DAILY 30 days Tobacco use date assessed: 10/24/23 Dental Screening Dental Screen Date: 10/24/23 Did you have a dental visit in the last 12 months?: Yes Did you have a dental problem in the last 6 months where you did not have access to dental care?: No Was dental information given to patient?: Patient has dentist HPI back pain HPI Details Pt c/o lower back pain. Pt had an RFA in December of 2022 which he reports helped minimally with spasms. He reports ongoing pain, pointing to his SI joint region. Previous hip/pelvic XRs showed left greater trochanteric enthesopathy. Joint spaces are maintained. Will order XR of SI joints. Will send dexamethasone and tramadol. Educated pt on risk of addiction, this is not a long-term med. Pt understands that they can not drive while taking this med, share this med, and to only take as prescribed. Denies any signs of cauda equina. Encouraged pt to follow up with pain management. [facility] Medical History (Updated 10/24/23 @ 11:15 by JUSTYN Cleveland-VAN) Elevated cholesterol Acute middle ear effusion Surgical History History of esophagogastroduodenoscopy (EGD) Hx of colonoscopy History of lumbar laminectomy S/P lumbar laminectomy Hx of tonsillectomy H/O shoulder surgery Family History Other H/O shoulder surgery History of lumbar laminectomy Hx of tonsillectomy Social History Patient Tobacco Use Status: Never used Tobacco e-Cigarette/Vaping Use: Never Used Second Hand Smoke Exposure: No service: Yes Current occupational status: employed Current occupational exposures/hazards: Yes Cognitive needs: No Hearing needs: No Vision needs: No Questionnaire PHQ-9 Over the last 2 weeks, how often have you been bothered by any of the following problems? 1. Little interest or pleasure in doing things: not at all 2. Feeling down, depressed, or hopeless: not at all 3. Trouble falling or staying asleep, or sleeping too much: not at all 4. Feeling tired or having little energy: not at all 5. Poor appetite or overeating: not at all 6. Feeling bad about yourself - or that you are a failure or have let yourself or your family down: not at all 7. Trouble concentrating on things, such as reading the newspaper or watching television: not at all 8. Moving or speaking so slowly that other people could have noticed. Or the opposite - being so fidgety or restless that you have been moving around a lot more than usual: not at all 9. Thoughts that you would be better off or of hurting yourself in some way: not at all Total score: 0 Depression Screening Interpretation: Negative Depression Screening Done: Yes 78170 - PHQ-9 Billing: Yes Source: Developed by Drs. Alexis Qiu, Chandrika Copeland, Juarez Hoffmann and colleagues, with an educational cecy from [employer]. Thrive Questionnaire Date Thrive assessed: 10/24/23 I am a: Patient What is your living situation today?: I have a steady place to live Within the past 12 months, did the food you bought not last and you didn't have the money to get more?: Never true Within the past 12 months, did you worry whether your food would run out before you got money to buy more?: Never true Do you have trouble paying for medicines?: No Do you have trouble getting transportation to medical appointments?: No Do you have trouble paying your heating and electricity bill?: No Do you have trouble taking care of your child, family member or friend?: No Do you have trouble with day-to-day activities such as bathing, preparing meals, shopping, managing finances, etc.?: No Are you currently unemployed and looking for a job?: Yes Are you interested in more education?: No Please select the resources that you would like help with: None Currently or been in a relationship where the following occur: No concerns repo rted THRIVE Score: 0 AUDIT C Alcohol Use Questionnaire (AUDIT-C) 1. How often do you have a drink containing alcohol?: 2-4 times a month 2. How many drinks containing alcohol do you have on a typical day when you are drinking?: 1 or 2 3. How often do you have six or more drinks on one occasion?: Less than monthly Total Score: 3 Score Reviewed/Action Taken: Yes JAYLIN-7 AMB Questionnaire JAYLIN-7 Date JAYLIN - 7 assessed: 10/24/23 Feeling nervous, anxious, or on edge: 0 = Not at all Not being able to stop or control worryin = Not at all Worrying too much about different things: 0 = Not at all Trouble relaxin = Not at all Being so restless that it is hard to sit still: 0 = Not at all Becoming easily annoyed or irritable: 0 = Not at all Feeling afraid as if something awful might happen: 0 = Not at all Total JAYLIN-7 score (0-4 normal; 5-9 mild; 10-14 moderate; 15-21 severe): 0 Source: Developed by Drs. Alexis Qiu, Chandrika Copeland, Juarez Hoffmann and colleagues, with an educational cecy from [employer]. JAYLIN-7 Assessment Billing JAYLIN-7 Assessment Tool: JAYLIN-7 Assessment 70364 Review of Systems Const Reports as per HPI Physical exam (Primary Care) Vital Signs: Last Vital Signs Pulse 74 10/24/23 10:32 BP 120/74 10/24/23 10:32 Pulse Ox 98 10/24/23 10:32 Oxygen Delivery Method Room Air 10/24/23 10:32 BMI result Body Mass Index 40.0 Tobacco/Smoking Status: Tobacco use Status Tobacco use date assessed 10/24/23 10/24/23 10:33 Patient Tobacco Use Status Never used Tobacco 10/24/23 10:32 e-Cigarette/Vaping Use Never Used 10/24/23 10:32 PHQ-9: PHQ-9 Score PHQ-9: Total score 0 10/24/23 11:13 Depression Screening Interpretation: Negative Thrive Assessment: Date of Thrive Assessment Date Thrive assessed 10/24/23 10/24/23 10:33 Currently or been in a relationship where the following occur: No concerns reported Const General: cooperative Nutritional Appearance: obese Orientation/consciousness: patient oriented x3 Resp Effort & Inspection: normal respiratory effort Auscultation: clear to auscultation bilaterally Cardio Rate: regular rate Rhythm: regular rhythm Heart sounds: S1 normal heart sound present and S2 normal heart sound present Neuro General: patient oriented x3 Extrem Other: bilat feet: no tenderness with palpation of SI joints, no pain or radicular symptoms exacerbated with bilat knee to chest raises, bilat entire LE raises, and heel and toe walking Psych Appearance: grossly normal Mental Status: mental status grossly normal Speech and movement: Normal speech and movement present Affect: normal affect Attitude: cooperative Thought process: Normal thought process present Thought content: Normal thought content present Insight: Good insight present (Psych) Judgement: Good judgement present (Psych) Assessment and Plan Assessment & Plan (1) SI (sacroiliac) joint dysfunction: Code(s): M53.3 - Sacrococcygeal disorders, not elsewhere classified Plan: XRs ordered, dexamethasone and tramadol sent (2) Chronic pain syndrome: Code(s): G89.4 - Chronic pain syndrome Plan The patient agreed to the use of a medical case worker for this encounter. Scribed for ARMON Vanegas by Mavis Erwin medical case worker, on 10/24/2023 at 11:15 EST. Orders: Orders XR sacroiliac joint min 3V Today M53.3 - Sacrococcygeal disorders, not elsewhere classified Medications: New dexamethasone 3 times a day for 3 days. twice a day for 3 days, daily for 3 days 4 mg PO DAILY 18 tabs 0RF 9 days tramadol 50 mg PO DAILY PRN 14 tabs 0RF pain 14 days Coding Level of Care Code Est Pt Level 3 (18635) Diagnoses SI (sacroiliac) joint dysfunction M53.3 Chronic pain syndrome G89.4 Additional Codes JAYLIN-7 Assessment Billing - JAYLIN-7 Assessment Tool: JAYLIN-7 Assessment [id number] ([id number])
[2023-10-24 10:32] VITALS: BP 120/74; PULSE 74; O2SAT 98; BMI 40.0
== END 2023-10-24 14:31 | disposition home or self-care (01) ==
PROVIDERS: PCP Nurse Practitioner Family; Visit Provider Nurse Practitioner Family
DX: M53.3 Sacrococcygeal disorders, not elsewhere classified (principal); G89.4 Chronic pain syndrome
CPT/HCPCS: 99213

== ENCOUNTER 2023-10-24 11:22 | Outpatient (REF) | payer OTHER, SELFPAY ==
--- NOTE | ~2023-10-24 | XR_ITS ---
EXAMINATION: XR SACROILIAC JOINTS CLINICAL INFORMATION: Sacrococcygeal disorders COMPARISON: 02/15/2023 x-ray bilateral hips with pelvis TECHNIQUE: 3 views of the sacroiliac joints FINDINGS: Degenerative changes in the imaged lower lumbar spine. Moderate degenerative changes in the bilateral sacroiliac joints. XR/XR sacroiliac joint min 3V IMPRESSION: Moderate degenerative changes in the bilateral sacroiliac joints. Electronically signed by: Coral Lancaster MD 11/20/2023 08:59 AM EDT
== END 2023-10-24 11:23 | disposition home or self-care (01) ==
LOC: HO.HMGCX 11:22
PROVIDERS: PCP Nurse Practitioner Family; Visit Provider Nurse Practitioner Family
DX: M53.3 Sacrococcygeal disorders, not elsewhere classified (principal)
CPT/HCPCS: 72202

== ENCOUNTER 2023-11-07 09:46 | Outpatient (AMB) | payer OTHER, SELFPAY ==
--- NOTE | 2023-11-07 09:58 | MHC.OFFWIV ---
Intake Vital Signs 11/07/23 10:00 Height 5 ft 10 in Weight 278 lb BMI 39.9 BP 138/90 H Blood Pressure Location Lt brachial Position Sitting Pulse 86 Pulse Source Pulse Oximeter Pulse Oximetry (%) 98 Oxygen Delivery Method Room Air Intake Visit Reasons: EP sore throat,aches Patient Tobacco Use Status: Never used Tobacco Allergies amoxicillin [AMOXICILLIN] Allergy (Intermediate, Verified 10/24/23 10:48) HIVES penicillin V Allergy (Unknown, Verified 10/24/23 10:48) hives penicillin Allergy (Unknown, Uncoded 07/25/23 11:42) Hives HPI HPI Comments History of Present Illness Details Patient is a 53-year-old male complaining of 4 days of sore throat, sinus pain, head congestion and cough as well as ear pain. Patient states he does get ear infections quite often. He denies a history of tubes in his ears. He denies any fevers, nausea vomiting or diarrhea or shortness of breath. [facility] Medical History (Updated 11/07/23 @ 10:29 by Yeni Childress PA-C) Elevated cholesterol Acute middle ear effusion Surgical History History of esophagogastroduodenoscopy (EGD) Hx of colonoscopy History of lumbar laminectomy S/P lumbar laminectomy Hx of tonsillectomy H/O shoulder surgery Family History Other H/O shoulder surgery History of lumbar laminectomy Hx of tonsillectomy Social History Patient Tobacco Use Status: Never used Tobacco e-Cigarette/Vaping Use: Never Used Second Hand Smoke Exposure: No service: Yes Current occupational status: employed Current occupational exposures/hazards: Yes Cognitive needs: No Hearing needs: No Vision needs: No Review of Systems Const All systems reviewed & are unremarkable except as noted in HPI and below Physical Exam Vital Signs: Last Vital Signs Pulse 86 11/07/23 10:00 BP 138/90 H 11/07/23 10:00 Pulse Ox 98 11/07/23 10:00 Oxygen Delivery Method Room Air 11/07/23 10:00 BMI result Body Mass Index 39.9 Const General: cooperative, healthy appearing, comfortable and no acute distress Orientation/consciousness: patient oriented x3 HEENT Head: Yes normal to inspection, Yes No palpable skull fracture present and Yes normocephalic Ears: hearing grossly normal bilaterally, external ears normal, EAC's normal, mastoids normal (no TTP) bilaterally and TM abnormal ( ) wth effusion (left side) purulent and erythematous on the right General nose exam: Normal external nose present Face and sinus: Yes normal facial exam and Yes sinus tenderness Mouth: Normal oral and palatal mucosa present Teeth and gingiva: dentition normal Throat: Yes posterior oropharynx normal Eyes General: appearance normal, both eyes and all related structures Neck Neck: Yes normal visual inspection, Yes full ROM, Yes no lymphadenopathy, Yes no meningeal signs, Yes trachea midline and Yes supple Resp Effort & Inspection: normal respiratory effort and able to speak in complete sentences Skin General skin exam: no rashes or lesions noted Neuro General: patient oriented x3 and no meningeal signs Results AMB Rapid Strep AMB Rapid Strep Negative Last Edit by LIANA Meyers on 11/07/23 10:21 Assessment & Plan Assessment & Plan (1) Otitis media: Code(s): H66.90 - Otitis media, unspecified, unspecified ear Qualifiers: Otitis media type: suppurative Chronicity: acute Laterality: left Recurrence: non-recurrent Spontaneous tympanic membrane rupture: without spontaneous rupture Qualified Code(s): H66.002 - Acute suppurative otitis media without spontaneous rupture of ear drum, left ear Plan: With penicillin allergy of hives, sent 3rd generation cephalosporin. Tested for flu COVID and RSV; rapid strep was negative in office. (2) Sinusitis: Code(s): J32.9 - Chronic sinusitis, unspecified Qualifiers: Sinusitis location: frontal Chronicity: acute Recurrence: non-recurrent Qualified Code(s): J01.10 - Acute frontal sinusitis, unspecified Plan: Treat symptoms with [id number] medications Plan See above Orders: Orders SARS-CoV2/FLU/RSV Today R09.89 - Other specified symptoms and signs involving the circulatory and respiratory systems AMB Rapid Strep Screen Today Z13.9 - Encounter for screening, unspecified Medications: New cefdinir 300 mg PO Q12H 10 caps 0RF Coding Level of Care Code Est Pt Level 3 (20203) Diagnoses Non-recurrent acute suppurative otitis media of left ear without spontaneous rupture of tympanic membrane H66.002 Otitis media type: suppurative Chronicity: acute Laterality: left Recurrence: non-recurrent Spontaneous tympanic membrane rupture: without spontaneous rupture Acute non-recurrent frontal sinusitis J01.10 Sinusitis location: frontal Chronicity: acute Recurrence: non-recurrent
[2023-11-07 10:00] VITALS: BP 138/90; PULSE 86; O2SAT 98; BMI 39.9
== END 2023-11-07 10:29 | disposition home or self-care (01) ==
PROVIDERS: PCP Nurse Practitioner Family; Visit Provider Physician Assistant
DX: H66.002 Acute suppurative otitis media without spontaneous rupture of ear drum, left ear (principal); J01.10 Acute frontal sinusitis, unspecified; Z13.9 Encounter for screening, unspecified
CPT/HCPCS: 87880; 99213

== ENCOUNTER 2023-11-07 10:19 | Outpatient (REF) | payer OTHER, SELFPAY ==
[2023-11-07 14:04] LABS: Influenza A PCR NEGATIVE (Negative); Influenza B PCR NEGATIVE (Negative); Resp Syncy Virus RNA Qual PCR NEGATIVE (Negative); SARS COV2 PCR INHOUSE POSITIVE (Negative)
== END 2023-11-07 10:20 | disposition home or self-care (01) ==
LOC: HO.LNP 10:19
PROVIDERS: Visit Provider Physician Assistant
DX: R09.89 Other specified symptoms and signs involving the circulatory and respiratory systems (principal); J98.8 Other specified respiratory disorders
CPT/HCPCS: 0241U

== ENCOUNTER 2023-11-28 12:10 | Outpatient (AMB) | payer OTHER, SELFPAY ==
[2023-11-28 12:15] VITALS: BP 138/88; PULSE 80; O2SAT 97; BMI 39.3
--- NOTE | 2023-11-28 12:15 | A.OFFPC_ITS ---
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 Allergies amoxicillin [AMOXICILLIN] Allergy (Intermediate, Verified 11/28/23 12:15) HIVES penicillin V Allergy (Unknown, Verified 11/28/23 12:15) hives penicillin Allergy (Unknown, Uncoded 07/25/23 11:42) Hives Medication List - Last Reconciled 11/28/23 by RAMON Cleveland acetaminophen (Tylenol Extra Strength) 1,000 mg PO Q6H PRN atorvastatin 20 mg PO BEDTIME dexamethasone 4 mg PO DAILY 9 days fluticasone propionate 50 mcg/actuation (Flonase Allergy Relief) 2 sprays intranasal DAILY 30 days tramadol 50 mg PO DAILY PRN 14 days Tobacco use date assessed: 10/24/23 Dental Screening Dental Screen Date: 10/24/23 HPI PE HPI Details Pt is here for a PE. Will order labs. Colon screen is up to date. Due for PSA, will order. Denies dribbling with urination, weak stream, and frequent nocturia. Pt c/o cough since having COVID 2 weeks ago. He reports that this is intermittent. Will send benzonatate. [facility], [facility] Medical History Elevated cholesterol Acute middle ear effusion Surgical History History of esophagogastroduodenoscopy (EGD) Hx of colonoscopy History of lumbar laminectomy S/P lumbar laminectomy Hx of tonsillectomy H/O shoulder surgery Family History Other H/O shoulder surgery History of lumbar laminectomy Hx of tonsillectomy Social History Patient Tobacco Use Status: Never used Tobacco e-Cigarette/Vaping Use: Never Used Second Hand Smoke Exposure: No service: Yes Current occupational status: employed Current occupational exposures/hazards: Yes Cognitive needs: No Hearing needs: No Vision needs: No Questionnaire Thrive Questionnaire Date Thrive assessed: 09/23/23 I am a: Patient What is your living situation today?: I have a steady place to live Within the past 12 months, did the food you bought not last and you didn't have the money to get more?: Never true Within the past 12 months, did you worry whether your food would run out before you got money to buy more?: Never true Do you have trouble paying for medicines?: No Do you have trouble getting transportation to medical appointments?: No Do you have trouble paying your heating and electricity bill?: No Do you have trouble taking care of your child, family member or friend?: No Do you have trouble with day-to-day activities such as bathing, preparing meals, shopping, managing finances, etc.?: No Are you currently unemployed and looking for a job?: Yes Are you interested in more education?: No Please select the resources that you would like help with: None Currently or been in a relationship where the following occur: No concerns reported THRIVE Score: 0 JAYLIN-7 AMB Questionnaire JAYLIN-7 Date JAYLIN - 7 assessed: 10/24/23 Source: Developed by Drs. Alexis Qiu, Chandrika Copeland, Juarez Hoffmann and colleagues, with an educational cecy from [employer]. Review of Systems Const Denies chills and Denies fever(s) Eyes Denies blurry vision ENT Denies vertigo, Denies dizziness and Denies sore throat Card Denies chest pain at rest, Denies chest pain with activity, Denies diaphoresis, Denies dyspnea and Denies dyspnea on exertion Resp Reports cough, Denies dyspnea, Denies dyspnea on exertion and Denies wheezing GI Denies abdominal pain, Denies melena, Denies hematochezia, Denies constipation, Denies diarrhea and Denies loose stools Denies hematuria Musc Denies numbness and Denies tingling Skin/Breast Denies lesions Neuro Denies vertigo, Denies dizziness, Denies numbness and Denies tingling Psych Denies anxiety, Denies depression, Denies homicidal ideation, Denies suicidal ideation and Denies other (substance abuse) Aller/Immun Denies wheezing Physical exam (Primary Care) Vital Signs: Last Vital Signs Pulse 80 09/19/24 12:15 BP 138/88 11/28/23 12:15 Pulse Ox 97 11/28/23 12:15 BMI result Body Mass Index 39.3 Tobacco/Smoking Status: Tobacco use Status Tobacco use date assessed 10/24/23 11/28/23 12:17 Patient Tobacco Use Status Never used Tobacco 11/28/23 12:17 e-Cigarette/Vaping Use Never Used 11/28/23 12:17 Thrive Assessment: Date of Thrive Assessment Date Thrive assessed 09/23/23 11/28/23 12:17 Currently or been in a relationship where the following occur: No concerns reported Const General: cooperative Nutritional Appearance: well nourished Orientation/consciousness: patient oriented x3 HENMT Head: Yes normal to inspection, Yes normocephalic and Yes atraumatic Ears: TM's normal bilaterally Eyes General: appearance normal, both eyes and all related structures Alignment and Position: alignment normal and position normal Neck Neck: Yes normal visual inspection, Yes no lymphadenopathy and Yes supple Resp Effort & Inspection: normal respiratory effort Auscultation: clear to auscultation bilaterally Cardio Rate: regular rate Rhythm: regular rhythm Heart sounds: S1 normal heart sound present, S2 normal heart sound present and no murmurs GI Palpation (GI): Soft to palpation and nontender Auscultation: normal bowel sounds Male General Exam: Yes normal external exam Penis: normal penis Scrotum: scrotum normal, testes descended bilaterally and no inguinal hernias Testes: no testicular mass Skin Rashes: no rashes Neuro General: patient oriented x3, moves all extremities, no focal motor deficits and deep tendon reflexes 2+ bilaterally Romberg Test: Negative Psych Appearance: grossly normal Mental Status: mental status grossly normal Speech and movement: Normal speech and movement present Affect: normal affect Attitude: cooperative Thought process: Normal thought process present Thought content: Normal thought content present Insight: Good insight present (Psych) Judgement: Good judgement present (Psych) Assessment and Plan Assessment & Plan (1) Physical exam: Code(s): Z00.00 - Encounter for general adult medical examination without abnormal findings Plan: Labs ordered (2) Screening PSA (prostate specific antigen): Code(s): Z12.5 - Encounter for screening for malignant neoplasm of prostate Plan: PSA ordered (3) Post-COVID chronic cough: Code(s): R05.3 - Chronic cough; U09.9 - Post COVID-19 condition, unspecified Plan The patient agreed to the use of a medical referral coordinator for this encounter. Scribed for RAMON Vanegas by Mavis Erwin medical referral coordinator, on 11/28/2023 at 12:25 EST. Orders: Orders UA CC w/rflx Micro + Cult Today Z00.00 - Encounter for general adult medical examination without abnormal findings Complete Blood Count Auto Diff Today Z00.00 - Encounter for general adult medical examination without abnormal findings Comprehensive Ware. Panel Fast Today Z00.00 - Encounter for general adult medical examination without abnormal findings TSH reflex Free T4 Today Z00.00 - Encounter for general adult medical examination without abnormal findings Lipid Panel Today Z00.00 - Encounter for general adult medical examination without abnormal findings Prostate Specific Antigen Scr Today Z12.5 - Encounter for screening for malignant neoplasm of prostate Medications: New benzonatate 100 mg PO BID PRN 40 caps 0RF cough 20 days Discontinued dexamethasone 3 times a day for 3 days. twice a day for 3 days, daily for 3 days Discontinued Reason: Doctor's Order 4 mg PO DAILY 9 days 18 tabs 0RF Coding Level of Care Code Est Pt Prev Care 40-64y(81051) Diagnoses Physical exam Z00.00 Screening PSA (prostate specific antigen) Z12.5 Post-COVID chronic cough R05.3; U09.9
== END 2023-11-28 16:46 | disposition home or self-care (01) ==
PROVIDERS: PCP Nurse Practitioner Family; Visit Provider Nurse Practitioner Family
DX: Z00.00 Encounter for general adult medical examination without abnormal findings (principal); Z12.5 Encounter for screening for malignant neoplasm of prostate; R05.3 Chronic cough; U09.9 Post COVID-19 condition, unspecified

== ENCOUNTER → 2023-11-28 12:10 | Outpatient (BNVA) | payer OTHER, SELFPAY | PROVIDERS: PCP Nurse Practitioner Family; Visit Provider Nurse Practitioner Family ==

== ENCOUNTER 2023-12-26 09:34 | Outpatient (AMB) | payer OTHER, SELFPAY ==
--- NOTE | 2023-12-26 09:36 | MHC.OFFVIS ---
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 He also reports left shoulder, neck and left sided body pain with activities and sleeping on left side. Denies any recent trauma, injury or falls. Patient has history of neurosurgical procedure laminectomy and diskectomy performed by Dr. Rowley. Low back pain is axial and also radiates into his lateral hips and sacral areas, consistent with sacroiliac joint pain with positive provocative testing and mild tenderness to left GTB. Patient underwent lumbar medial branch RFA a year ago with good results for about 10 months. He recently completed sacroiliac joint xray which showed moderate degenerative changes in the bilateral sacroiliac joints. Patient has been treating his symptoms with Tylenol, stretching exercises, heat or hot shower use and activity modifications with minimal pain relief or functional improvement. Patient completed 24 sessions of physical therapy in 2022 with partial improvement. He continues with home exercise program as tolerated. He also was prescribed tramadol by PCP in October which causes him GI upset and nausea. He prefers not to take opioids. Patient is interested to undergo bilateral diagnostic sacroiliac joint injections potential longer-term pain management interventions such as neuromodulation, RFA or SI joint stabilization procedures. He denies smoking history, does use alcohol occasionally. Denies any recent cough, cold, infection, fever, weakness, footdrop, bladder or bowel dysfunction, saddle anesthesia, or any other significant changes in medical history since last office visit. Past Procedures: 12/27/22: Bilateral L3-L4-DR L5 medial branches RFA with Dr. [id number] pain relief 10 months 10/23/22: Bilateral L3-L4-DR L5 diagnostic MBB- 100% pain relief for 4 hours and 80% for another additional 2 hours of pain relief PRIOR Dr. 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 He reports pain in the back with radiation to the hip he also reports tingling pins and needle sensation in the right foot. Reports all the toes are affected. He reports that he cannot sleep normally because of his pain but he can do activities of daily living he can take care of himself he can not function normally he is working full-time. He reports that the heat and cold applications alleviate his pain and oral medications gabapentin helps his pain as well. Mostly his pain medication helps his pain in the foot. He reports that gabapentin does not help pain in the back. He reports his pain in terms of tissue damage is cramping tingling crushing sore aching sensation. He had an MRI of the lumbar spine which is dictated by below. He went for physical therapy with core physical therapy and did not receive any pain improvement he went for chiropractic manipulation with no improvement he went for massage therapy with no improvement head 10s unit with no improvement. He never had any injections. His past medical history is negative his past surgical history significant for childhood tonsillectomy and right shoulder turn labrum in 2010. He denies smoking cigarettes admits occasional beer drinking drinks caffeinated beverages but denies recreational drugs. [facility] Medical History (Updated 12/26/23 @ 11:26 by JUSTYN Mendez) Ankle injury Knee pain Cervical muscle strain Otitis media, right Low back pain radiating to lower extremity Disc degeneration, lumbar Chronic pain syndrome Radiculopathy, lumbar region Sinusitis Dyslipidemia Bilateral hip pain SI (sacroiliac) joint dysfunction Post-COVID chronic cough Elevated cholesterol Acute middle ear effusion Surgical History (Updated 12/26/23 @ 11:26 by JUSTYN Mendez) H/O radiofrequency ablation (RFA) of nerve of lumbar spine History of esophagogastroduodenoscopy (EGD) Hx of colonoscopy History of lumbar laminectomy S/P lumbar laminectomy Hx of tonsillectomy H/O shoulder surgery Family History Other H/O shoulder surgery History of lumbar laminectomy Hx of tonsillectomy Social History Patient Tobacco Use Status: Never used Tobacco e-Cigarette/Vaping Use: Never Used Second Hand Smoke Exposure: No service: Yes Current occupational status: employed Current occupational exposures/hazards: Yes Cognitive needs: No Hearing needs: No Vision needs: No Review of Systems Const All systems reviewed & are unremarkable except as noted in HPI and below Physical Exam Vital Signs: Last Vital Signs Pulse 91 12/26/23 09:39 BP 131/86 12/26/23 09:39 Pulse Ox 98 12/26/23 09:39 Oxygen Delivery Method Room Air 12/26/23 09:39 BMI result Body Mass Index 39.7 General: Appears afebrile. Alert and oriented. Mood and affect appropriate. Follows and participates in conversation appropriately. Respiratory effort is unlabored. No cough. Able to transition from sit to stand unassisted. Ambulates with bilaterally normal heel strike and toe off. General: Yes no CVA tenderness Back/Spine/Pelvis Other: No midline tenderness to palpation in the thoracic or lumbar spine. Mild paraspinal tenderness to palpation in the lower lumbar spine. Mild to moderate TTP in the projection of bilateral SIJ areas, right>left. Lumbar extension or flexion reproduce mild pain. +Palmer's point bilaterally. Mild TTP to left GTB. SI distraction, Andres?s test, Gaenslen's and Pelvic compression are positive bilaterally. No groin pain with I/E hip rotations bilaterally. Back: no CVA tenderness Cervical Spine: cervical ROM normal, cervical muscular tenderness, pain with cervical ROM and No Cervical spine tenderness Thoracic/Lumbar Spine: thoracic and lumbar spine normal to inspection, No Thoracic/lumbar spine scar(s), thoraco-lumbar ROM normal, Lasegue's sign negative, straight leg raise negative bilaterally, pain with thoraco-lumbar ROM, paraspinal muscle tenderness, No thoracic spinal tenderness and lumbar spinal tenderness (L3-S1) Pelvis: no buttock tenderness and no sciatic notch tenderness Sacroiliac joints: bilaterally tender to palpation Extrem General: Yes capillary refill normal, Yes no clubbing, cyanosis or edema and Yes no calf tenderness Left upper extremity: shoulder/upper arm Details: inspection abnormal, tenderness Location: of the A-C joint and over the subacromial bursa and normal ROM; no swelling, no crepitus, no deformity and no unsual warmth Results Reviewed Results Reviewed: MRI lumbar spine 12/18/2021 Findings: The lumbar vertebral bodies within normal height and alignment. There is mild multilevel intervertebral disc height loss. Bone marrow edema is seen. The distal spinal cord appears normal. The conus medullaris terminates normally at L1 level. The visualized paraspinal muscles and intra-abdominal and pelvic contents are within normal limits. Spinal levels: T12-L1: Disc bulging with small central extrusion with mild superior migration. Mild flattening of the ventral thecal sac. Spinal canal or neural foraminal stenosis. L1-L2: Disc bulging with shallow central protrusion. No spinal canal or neural foraminal stenosis. L2-L3 disc bulging with annular fissuring mild flattening of ventral thecal sac. Narrowing of the left subarticular zone. No spinal canal stenosis. Mild left neural foraminal stenosis. L3-L4: Mild disc bulge with mild facet arthropathy left foraminal protrusion compresses the exiting left L3 nerve root. No spinal canal stenosis. L4-5: Disc bulging with right subarticular extrusion resulting in compression of the traversing right L4 nerve root. A small right-sided synovial facet cyst contributes to right subarticular stenosis at the disc level. Severe facet arthropathy. No significant spinal canal stenosis. Right foraminal protrusion mildly compresses the exiting right L4 nerve root. No significant left-sided neural foraminal stenosis. L5-S1: Disc bulging with focal central protrusion resulting in right more than left subarticular stenosis compression of the traversing right more than left left subarticular stenosis compressing of the traversing right more than left S1 nerve root. Moderate facet arthropathy. Mild right neural foraminal stenosis but without foraminal nerve root compression. MR arthrography of the right shoulder 03/07/2011 HISTORY: Right shoulder pain, status post injury, rule out rotator cuff tear, rule out labral tear. TECHNIQUE: MR arthrography using T1-weighted fat-sat and T2-weighted fat-sat sequences in axial, oblique coronal and oblique sagittal sections. Dr. Retana performed arthrography. FINDINGS: MR arthrography shows increased signal intensity along the anterior aspect of the rotator cuff without obvious leakage of the contrast agent into the subacromial/subdeltoid bursa. A portion of the contrast agent is located outside the joint capsule. There is no retraction of the supraspinatus tendon. Hypertrophic change of the undersurface of the acromion is noted causing slight narrowing of the subacromial space. The remainder of the bones are unremarkable. The supraspinatus, infraspinatus, teres minor and subscapularis muscles are normal in size and show no abnormal signal intensity. A linear increased signal intensity is seen within the superior labrum associated slight increased signal intensity of the biceps anchor. The remainder of the long head of the biceps tendon is unremarkable. The inferior recess shows no abnormal signal intensity. IMPRESSION: MR arthrography of the right shoulder is consistent with: 1. Rotator cuff tendinosis with mild impingement. There is no tear. 2. Type II SLAP tear. XR SACROILIAC JOINTS 10/24/23 CLINICAL INFORMATION: Sacrococcygeal disorders COMPARISON: 02/15/2023 x-ray bilateral hips with pelvis FINDINGS: Degenerative changes in the imaged lower lumbar spine. Moderate degenerative changes in the bilateral sacroiliac joints. IMPRESSION: Moderate degenerative changes in the bilateral sacroiliac joints. Assessment & Plan Assessment & Plan (1) Left shoulder pain: Code(s): M25.512 - Pain in left shoulder Category: Medical (2) Sacroiliac joint pain: Code(s): M53.3 - Sacrococcygeal disorders, not elsewhere classified Category: Medical (3) Sacroiliac joint pain: Code(s): M53.3 - Sacrococcygeal disorders, not elsewhere classified Category: Medical (4) Low back pain: Code(s): M54.50 - Low back pain, unspecified Category: Medical (5) SI (sacroiliac) joint dysfunction: Code(s): M53.3 - Sacrococcygeal disorders, not elsewhere classified Category: Medical (6) Sacroiliitis: Code(s): M46.1 - Sacroiliitis, not elsewhere classified Category: Medical (7) H/O radiofrequency ablation (RFA) of nerve of lumbar spine: Comment: dec 27 2022 Code(s): Z98.890 - Other specified postprocedural states Category: Surgical Plan Left shoulder xray to assess degree of arthritis. Full ROM with mild localized tenderness mostly in the anterior aspects of left shoulder. Schedule Bilateral Diagnostic Sacroiliac Joint Injections with local and fluoroscopy for potential therapeutic injections, neuromodulation, RFA, and SI joint stabilization procedures if positive response. Expectations, risks and benefits were reviewed. Patient is aware he will be contacted to schedule this procedure. Scripts provided for SIJ brace for fit and size at: [facility] [address] [place] [id number] Script provided for diclofenac potassium for neck, shoulder and low back/SIJ pain symptoms. Side effects and precautions were discussed with patient. Patient is aware to avoid other NSAIDs while taking this. All questions were answered and the patient is in agreement of plan. Follow-up after injections and sooner as needed. Orders: Orders XR shoulder LT min 2V Today M25.512 - Pain in left shoulder Medications: New diclofenac potassium Take it with food and full glass of water 50 mg PO BID PRN 60 tabs 0RF pain M25.512 - Pain in left shoulder, M53.3 - Sacrococcygeal disorders, not elsewhere classified miscellaneous medical supply As directed 1 ea 0RF lumbosacral support M46.1 - Sacroiliitis, not elsewhere classified, M53.3 - Sacrococcygeal disorders, not elsewhere classified, M54.50 - Low back pain, unspecified Coding Level of Care Code Est Pt Level 4 (47803) Complex EM visit Add On G2211 Diagnoses Left shoulder pain M25.512 Sacroiliac joint pain M53.3 Low back pain M54.50 SI (sacroiliac) joint dysfunction M53.3 Sacroiliitis M46.1 H/O radiofrequency ablation (RFA) of nerve of lumbar spine Z98.890
[2023-12-26 09:39] VITALS: BP 131/86; PULSE 91; O2SAT 98; BMI 39.7
== END 2023-12-26 09:55 | disposition home or self-care (01) ==
PROVIDERS: PCP Nurse Practitioner Family; Visit Provider Nurse Practitioner Family
DX: M25.512 Pain in left shoulder (principal); M53.3 Sacrococcygeal disorders, not elsewhere classified; M54.50 Low back pain, unspecified; M46.1 Sacroiliitis, not elsewhere classified; Z98.890 Other specified postprocedural states
CPT/HCPCS: 99214; G2211

== ENCOUNTER → 2023-12-26 09:34 | Outpatient (BNVA) | payer OTHER, SELFPAY | PROVIDERS: PCP Nurse Practitioner Family; Visit Provider Nurse Practitioner Family | DX: M25.512 Pain in left shoulder (principal); M53.3 Sacrococcygeal disorders, not elsewhere classified; M54.50 Low back pain, unspecified; M46.1 Sacroiliitis, not elsewhere classified; Z98.890 Other specified postprocedural states | CPT/HCPCS: 99212 ==

== ENCOUNTER 2023-12-26 10:15 | Outpatient (REF) | payer OTHER, SELFPAY ==
--- NOTE | ~2023-12-26 | XR_ITS ---
EXAMINATION: XR SHOULDER LEFT 4 VIEWS CLINICAL INFORMATION: Pain in left shoulder M25.512. COMPARISON: None available TECHNIQUE: AP neutral, Grashey, scapular Y, and axillary views of the left shoulder. FINDINGS: There is no fracture or dislocation. Moderate degenerative changes in the acromioclavicular and glenohumeral joint. There is mild bony spurring in the humeral head. Subacromial spurring. Subtle calcification overlying the greater tuberosity. XR/XR shoulder LT min 2V IMPRESSION: 1. Moderate degenerative changes in the shoulder. 2. Subacromial spurring. 3. Subtle calcification overlying the greater tuberosity may reflect calcific tendinosis. Electronically signed by: Alexis Suarez MD 02/19/2024 08:56 AM [facility]
== END 2023-12-26 10:16 | disposition home or self-care (01) ==
LOC: HO.HMGCX 10:15
PROVIDERS: PCP Nurse Practitioner Family; Visit Provider Nurse Practitioner Family
DX: M25.512 Pain in left shoulder (principal)
CPT/HCPCS: 73030

== ENCOUNTER 2024-02-17 10:45 | Outpatient (AMB) | payer OTHER, SELFPAY ==
--- NOTE | 2024-02-17 10:53 | A.OFFVIS_ITS ---
Vital Signs 02/17/24 10:56 Height 5 ft 10 in Weight 272 lb 2 oz BMI 39.0 BP 143/90 H Blood Pressure Location Lt brachial Position Sitting Pulse 67 Pulse Source Pulse Oximeter Pulse Oximetry (%) 98 Oxygen Delivery Method Room Air Intake Visit Reasons: FOLLOW UP ON CHANGE OF SYMPTOMS Intake Note: Pain today 9/10 Director [employer] Required: No Accompanied by: Self / Same As Patient Allergies amoxicillin [AMOXICILLIN] Allergy (Intermediate, Verified 02/17/24 10:57) HIVES penicillin V Allergy (Unknown, Verified 02/17/24 10:57) hives penicillin Allergy (Unknown, Uncoded 07/25/23 11:42) Hives HPI Comments Details: Patient presents today for follow up for worsening low back pain with bilateral radiculopathy. He reports increasing numbness and tingling in both legs, posteriorly and laterally and into both calves and toes, right side worse than the left. Denies any inciting events. Symptoms have been worsening over one week. Patient is scheduled for bilateral SIJ injections on 02/25/24 but reports his symptoms have changes and concerned for radicular symptoms. He has taken NSAIDs, Tyleno, muscle relaxantl but had better relief with one time left over dexamethasone. Pain is rated at 9/10 and present with activities, bending, twisting, flexing forward, or lifting. He was attempting to do stretching exercises at home which were hepful in the past but not with new onset of sciatica symptoms. Patient has recent h/o lumbar laminectomy with discectomy in [address] Rowley. Will update his MRI prior to further interventional treatments. Denies any fever or chills, abdominal or groin pain, bladder or bowel dysfunction or saddle anesthesia. PRIOR 12/26/23: Patient presents today for follow up for worsening low back pain. He also reports left shoulder, neck and left sided body pain with activities and sleeping on left side. Denies any recent trauma, injury or falls. Patient has history of neurosurgical procedure laminectomy and diskectomy performed by Dr. Rowley. Low back pain is axial and also radiates into his lateral hips and sacral areas, consistent with sacroiliac joint pain with positive provocative testing and mild tenderness to left GTB. Patient underwent lumbar medial branch RFA a year ago with good results for about 10 months. He recently completed sacroiliac joint xray which showed moderate degenerative changes in the bilateral sacroiliac joints. Patient has been treating his symptoms with Tylenol, stretching exercises, heat or hot shower use and activity modifications with minimal pain relief or functional improvement. Patient completed 24 sessions of physical therapy in 2022 with partial improvement. He continues with home exercise program as tolerated. He also was prescribed tramadol by PCP in October which causes him GI upset and nausea. He prefers not to take opioids. Patient is interested to undergo bilateral diagnostic sacroiliac joint injections potential longer-term pain management interventions such as neuromodulation, RFA or SI joint stabilization procedures. He denies smoking history, does use alcohol occasionally. Denies any recent cough, cold, infection, fever, weakness, footdrop, bladder or bowel dysfunction, saddle anesthesia, or any other significant changes in m edical history since last office visit. Past Procedures: 12/27/22: Bilateral L3-L4-DR L5 medial branches RFA with Dr. [id number]% pain relief 10 months 10/23/22: Bilateral L3-L4-DR L5 diagnostic MBB- 100% pain relief for 4 hours and 80% for another additional 2 hours of pain relief PRIOR Dr. 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 He reports pain in the back with radiation to the hip he also reports tingling pins and needle sensation in the right foot. Reports all the toes are affected. He reports that he cannot sleep normally because of his pain but he can do activities of daily living he can take care of himself he can not function normally he is working full-time. He reports that the heat and cold applications alleviate his pain and oral medications gabapentin helps his pain as well. Mostly his pain medication helps his pain in the foot. He reports that gabapentin does not help pain in the back. He reports his pain in terms of tissue damage is cramping tingling crushing sore aching sensation. He had an MRI of the lumbar spine which is dictated by below. He went for physical therapy with core physical therapy and did not receive any pain improvement he went for chiropractic manipulation with no improvement he went for massage therapy with no improvement head 10s unit with no improvement. He never had any injections. His past medical history is negative his past surgical history significant for childhood tonsillectomy and right shoulder turn labrum in 2010. He denies smoking cigarettes admits occasional beer drinking drinks caffeinated beverages but denies recreational drugs. [facility] Medical History (Updated 02/17/24 @ 11:03 by JUSTYN Mendez) Ankle injury Knee pain Cervical muscle strain Otitis media, right Low back pain radiating to lower extremity Disc degeneration, lumbar Chronic pain syndrome Radiculopathy, lumbar region Sinusitis Dyslipidemia Bilateral hip pain SI (sacroiliac) joint dysfunction Post-COVID chronic cough Elevated cholesterol Acute middle ear effusion Surgical History (Updated 02/17/24 @ 11:03 by JUSTYN Mendez) H/O radiofrequency ablation (RFA) of nerve of lumbar spine History of esophagogastroduodenoscopy (EGD) Hx of colonoscopy History of lumbar laminectomy S/P lumbar laminectomy Hx of tonsillectomy H/O shoulder surgery Family History Other H/O shoulder surgery History of lumbar laminectomy Hx of tonsillectomy Social History Patient Tobacco Use Status: Never used Tobacco e-Cigarette/Vaping Use: Never Used Second Hand Smoke Exposure: No service: Yes Current occupational status: employed Current occupational exposures/hazards: Yes Cognitive needs: No Hearing needs: No Vision needs: No Review of Systems Const All systems reviewed & are unremarkable except as noted in HPI and below Physical Exam General: Appears afebrile. Alert and oriented. Mood and affect appropriate. Follows and participates in conversation appropriately. Respiratory effort is unlabored. No cough. Able to transition from sit to stand unassisted. Ambulates with bilaterally normal heel strike and toe off. General: Yes no CVA tenderness Back/Spine/Pelvis Other: Limited lumbar ROM due to pain. No midline tenderness to palpation in the thoracic or lumbar spine. Moderate paraspinal tenderness to palpation in the lower lumbar spine, right >left. Mild to moderate TTP in the projection of bilateral SIJ areas, right>left. Lumbar extension or flexion reproduce moderate pain. +Palmer's point bilaterally. Mild TTP to left GTB. SI distraction, Andres?s test, Gaenslen's and Pelvic compression are positive bilaterally. No groin pain with I/E hip rotations bilaterally. Back: no CVA tenderness Cervical Spine: cervical ROM normal, cervical muscular tenderness, pain with cervical ROM and No Cervical spine tenderness Thoracic/Lumbar Spine: thoracic and lumbar spine normal to inspection, No Thoracic/lumbar spine scar(s), thoraco-lumbar ROM normal, Lasegue's sign positive (right>left in L5-S1 distribution) bilateral, pain with thoraco-lumbar ROM, paraspinal muscle tenderness, No thoracic spinal tenderness and lumbar spinal tenderness (L3-S1) Pelvis: buttock tenderness bilaterally and sciatic notch tenderness bilateral Sacroiliac joints: bilaterally tender to palpation Extrem General: Yes capillary refill normal, Yes no clubbing, cyanosis or edema and Yes no calf tenderness Results Reviewed Results Reviewed: MRI lumbar spine 12/18/2021 Findings: The lumbar vertebral bodies within normal height and alignment. There is mild multilevel intervertebral disc height loss. Bone marrow edema is seen. The distal spinal cord appears normal. The conus medullaris terminates normally at L1 level. The visualized paraspinal muscles and intra-abdominal and pelvic contents are within normal limits. Spinal levels: T12-L1: Disc bulging with small central extrusion with mild superior migration. Mild flattening of the ventral thecal sac. Spinal canal or neural foraminal stenosis. L1-L2: Disc bulging with shallow central protrusion. No spinal canal or neural foraminal stenosis. L2-L3 disc bulging with annular fissuring mild flattening of ventral thecal sac. Narrowing of the left subarticular zone. No spinal canal stenosis. Mild left neural foraminal stenosis. L3-L4: Mild disc bulge with mild facet arthropathy left foraminal protrusion compresses the exiting left L3 nerve root. No spinal canal stenosis. L4-5: Disc bulging with right subarticular extrusion resulting in compression of the traversing right L4 nerve root. A small right-sided synovial facet cyst contributes to right subarticular stenosis at the disc level. Severe facet arthropathy. No significant spinal canal stenosis. Right foraminal protrusion mildly compresses the exiting right L4 nerve root. No significant left-sided neural foraminal stenosis. L5-S1: Disc bulging with focal central protrusion resulting in right more than left subarticular stenosis compression of the traversing right more than left left subarticular stenosis compressing of the traversing right more than left S1 nerve root. Moderate facet arthropathy. Mild right neural foraminal stenosis but without foraminal nerve root compression. XR SACROILIAC JOINTS 10/24/23 CLINICAL INFORMATION: Sacrococcygeal disorders COMPARISON: 02/15/2023 x-ray bilateral hips with pelvis FINDINGS: Degenerative changes in the imaged lower lumbar spine. Moderate degenerative changes in the bilateral sacroiliac joints. IMPRESSION: Moderate degenerative changes in the bilateral sacroiliac joints. Assessment & Plan Assessment & Plan (1) Low back pain radiating to lower extremity: Code(s): M54.50 - Low back pain, unspecified; M79.606 - Pain in leg, unspecified Category: Medical (2) Nerve root compression: Code(s): G54.9 - Nerve root and plexus disorder, unspecified Category: Medical (3) Disc degeneration, lumbar: Code(s): M51.36 - Other intervertebral disc degeneration, lumbar region Category: Medical (4) Radiculopathy due to disorder of intervertebral disc: Category: Medical (5) Lumbar post-laminectomy syndrome: Code(s): M96.1 - Postlaminectomy syndrome, not elsewhere classified Category: Medical Plan MRI of the lumbar spine to assess for neural integrity and compression and follow up on previous MRI findings. Back pain has been resistant to conservative treatments. Patient will return to the clinic to discuss results of the MRI findings when it is done and consider interventional therapy as indicated. Patient is aware to call if pain worsens or if he develops any red flag symptoms to seek emergency care. Patient denies any cauda equina syndrome symptoms at this time. All questiosn and concerns have been answered and patient agreed with the plan. Follow up for MRI results and sooner as needed. Orders: Orders MR lumbar spine wo/w con Today G54.9 - Nerve root and plexus disorder, unspecified, M51.36 - Other intervertebral disc degeneration, lumbar region, M54.50 - Low back pain, unspecified, M79.606 - Pain in leg, unspecified, M96.1 - Postlaminectomy syndrome, not elsewhere classified Coding Level of Care Code Est Pt Level 4 (21473) Complex EM visit Add On G2211 Diagnoses Low back pain radiating to lower extremity M54.50; M79.606 Nerve root compression G54.9 Disc degeneration, lumbar M51.36 Radiculopathy due to disorder of intervertebral disc Lumbar post-laminectomy syndrome M96.1
[2024-02-17 10:56] VITALS: BP 143/90; PULSE 67; O2SAT 98; BMI 39.0
--- OUTSIDE RECORDS SUMMARY | 2024-02-19 14:48 | XMS_ITS | Continuity of Care Document ---
Author Name [facility] Organization [facility] Care Team Providers Care Cutting Machine Offbearer Name Role Phone [facility] Unavailable Unavailable Problems Combined list of problems from Department of Defense and Veterans [facility] facilities. It does not include entries that were removed or entered in error. Problem Status Onset Date Problem Type Date of Resolution Comme nts Source motion sickness Inactive 09/28/2005 Condition Do D motion sickness Active Condition DoD Medications Combined list of outpatient medications from Department of Defense and Veterans Affairs facilities.Medications provided include 1) outpatient medications from the last 15 months, and 2) patient-reported medications. Medication Details Route Status Patient Instructions Prescription Expires Prescription Number Last Dispense Date Ordering Provider Order Date Order Qty Source ATORVASTATI N CALCIUM (atorvastat in calcium), 20 MG, TABLET, ORAL, 'S LAB, 500 ea. BOTTLE Active [id number] 2023 90 Pharmac y Data Transac tion Service Facilit y Allergies, Adverse Reactions, Alerts Combined list of allergies from Department of Defense and Veterans Affairs facilities. It does not include entries that were removed or entered in error. Substance Category Reaction Severity Reaction type Status Date Reported Comments Source AMOXICILLIN (AMOXICILLIN TRIHYDRATE) Drug allergy (disorder) Rash active 6 [employer] amoxicillin Propensity to adverse reactions to drug Rash Active 6 Pt states with certain doses Ambulatory Pharmacy Immunizations Combined list of available immunizations from the Department of Defense and Veterans Affairs facilities. 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 Status Comments Source influenza, injectable, quadrivalent- pf 2021 [id number] GlaxoSmithKli ne complet ed influenza , injectabl e, quadrival ent-pf 01/16/22 Given Ambulat ory Pharmac y tetanus, diphtheria, acellular pertu is 2021 [id number] sanofi pasteur complet ed tetanus, diphtheri a, acellular pertussis 01/16/22 Given Ambulat ory Pharmac y influenza, injectable, quadrivalent, preservative free 2020 BOGDASARIAN, () Not Given influenza , injectabl e, quadrival ent, preservat malgorzata free [facility] COVID-19, mRNA, LNP-S, PF, 30 mcg/0.3 mL dose 2020 [email or web address] [place] (PFR) Not Given COVID-19, mRNA, LNP-S, PF, 30 mcg/0.3 mL dose DoD COVID Vaccine Pfizer 2020 [id number] PFIZER complet ed COVID Vaccine Pfizer 11/17/20 Given Ambulat ory Pharmac y typhoid Vi capsular polysaccharid e vac 2020 [id number] 101 sanofi pasteur complet ed typhoid Vi capsular polysacch aride vac 04/26/20 Given Ambulat ory Pharmac y influenza, injectable, quadrivalent- pf 2019 [id number] 150 Seqirus complet ed influenza , injectabl e, quadrival ent-pf 01/16/20 Given Ambulat ory Pharmac y influenza, injectable, quadrivalent- pf 2018 [id number] 150 Seqirus complet ed influenza , injectabl e, quadrival ent-pf 02/14/19 Given Ambulat ory Pharmac y Influenza, injectable, quadrivalent, preservative free 0 2018 [id number] 150 Seqirus (SEQ) complet ed Influenza , injectabl e, quadrival ent, preservat malgorzata free DoD meningococcal A,C,Y,W-135 (MCV4P) 2018 [id number] 114 sanofi pasteur complet ed meningoco ccal A,C,Y,W-1 35 (MCV4P) 04/18/18 Given Ambulat ory Pharmac y typhoid Vi capsular polysaccharid e vac 2018 [id number] 101 sanofi pasteur complet ed typhoid Vi capsular polysacch aride vac 04/18/18 Given Ambulat ory Pharmac y influenza, injectable, quadrivalent- pf 2018 [id number] 150 Seqirus complet ed influenza , injectabl e, quadrival ent-pf 04/18/18 Given Ambulat ory Pharmac y typhoid Vi capsular polysaccharid e vaccine 6 2018 [id number] 101 Sanofi Pasteur (PMC) complet ed typhoid Vi capsular polysacch aride vaccine DoD meningococcal polysaccharid e (groups A, C, Y and W-135) diphtheria toxoid conjugate vaccine (MCV4P) 3 2018 [id number] 114 Sanofi Pasteur (PMC) complet ed meningoco ccal polysacch aride (groups A, C, Y and W-135) diphtheri a toxoid conjugate vaccine (MCV4P) DoD Influenza, injectable, quadrivalent, preservative free 11 2018 [id number] 150 Seqirus (SEQ) comple t ed Influenza , injectabl e, quadrival ent, preservat malgorzata free DoD typhoid Vi capsular polysaccharid e vac 2013 J1201 1 101 sanofi pasteur complet ed typhoid Vi capsular polysacch aride vac 03/21/13 Given Ambulat ory Pharmac y measles/mumps /rubella virus vaccine 2013 [id number] 03 Merck & Company Inc complet ed measles/m umps/rube lla virus vaccine 03/21/13 Given Ambulat ory Pharmac y measles, mumps and rubella virus vaccine 2 2013 [id number] 03 Merck (MSD) complet ed measles, mumps and rubella virus vaccine DoD typhoid Vi capsular polysaccharid e vaccine 5 2013 J1201 1 101 Sanofi Pasteur (PMC) complet ed typhoid Vi capsular polysacch aride vaccine DoD Influenza, injectable, MDCK-pf 2012 [id number] 153 Novartis Pharmaceutica complet ed Influenza , injectabl e, MDCK-pf 01/04/13 Given Ambulat ory Pharmac y Influenza, injectable, Madin Brandi Canine Kidney, preservative free 0 2012 [id number] 153 Novartis Pharmaceutica l Izabella. (NOV) complet ed Influenza , injectabl e, Madin Brandi Canine Kidney, preservat malgorzata free DoD influenza, seasonal, injectable-pf 2011 [id number] 140 CSL Behring complet ed influenza , seasonal, injectabl e-pf 01/13/12 Given Ambulat ory Pharmac y tetanus, diphtheria, acellular pertu is 2011 [id number] 115 sanofi pasteur complet ed tetanus, diphtheri a, acellular pertussis 01/13/12 Given Ambulat ory Pharmac y tetanus toxoid, reduced diphtheria toxoid, and acellular pertu is vaccine, adsorbed 0 2011 [id number] 115 Sanofi Pasteur ([facility]) complet ed tetanus toxoid, reduced diphtheri a toxoid, and acellular pertussis vaccine, adsorbed DoD Influenza, seasonal, injectable, preservative free 9 2011 [id number] 140 CS Diaferon[employer]lev[employer] Inc. (CS) complet ed Influenza , seasonal, injectabl e, preservat malgorzata free DoD typhoid Vi capsular polysaccharid e vac 2010 Y6459-3 101 sanofi pasteur complet ed typhoid Vi capsular polysacch aride vac 01/13/11 Given Ambulat ory Pharmac y influenza, seasonal, injectable-pf 2010 [id number] 140 CSL Behring complet ed influenza , seasonal, injectabl e-pf 01/13/11 Given Ambulat ory Pharmac y typhoid Vi capsular polysaccharid e vaccine 4 2010 [id number] 101 Sanofi Pasteur ([facility]) complet ed typhoid Vi capsular polysacch aride vaccine DoD Influenza, seasonal, injectable, preservative free 8 2010 [id number] 140 CS Diaferonapies, Inc. (CS) complet ed Influenza , seasonal, injectabl e, preservat malgorzata free DoD meningococcal A,C,Y,W-135 (MCV4P) 2010 [id number] 114 sanofi pasteur complet ed meningoco ccal A,C,Y,W-1 35 (MCV4P) 03/19/10 Given Ambulat ory Pharmac y meningococcal polysaccharid e (groups A, C, Y and W-135) diphtheria toxoid conjugate vaccine (MCV4P) 1 2010 [id number] 114 Sanofi Pasteur ([facility]) complet ed meningoco ccal polysacch aride (groups A, C, Y and W-135) diphtheri a toxoid conjugate vaccine (MCV4P) [facility] influenza virus vaccine,split 2009 [id number] 1B 15 CSL Behring complet ed influenza virus vaccine,s plit 12/22/09 Given Ambulat ory Pharmac y anthrax vaccine 2009 [id number] 24 Emergent Biosolutions complet ed anthrax vaccine 12/22/09 Given Ambulat ory Pharmac y influenza virus vaccine, split virus (incl. purified surface antigen)-reti red CODE 1 2009 [id number] 1B 15 Rubikloud, Inc. (CSL) complet ed influenza virus vaccine, split virus (incl. purified surface antigen)- retired CODE DoD anthrax vaccine 1 2009 [id number] 24 Emergent [employer] Commiskey (MIP) complet ed anthrax vaccine DoD Novel influenza-H1N 1-09, injectable 2009 [id number] 127 Novartis Pharmaceutica ls complet ed Novel influenza -Z8P4-19, injectabl e 04/03/09 Given Ambulat ory Pharmac y Novel influenza-H1N 1-09, injectable 1 2009 [id number] 1 127 Novartis Pharmaceutica l Izabella. (NOV) complet ed Novel influenza -B2Z8-73, injectabl e DoD influenza virus vaccine, live 2008 [id number] 111 Contractors_A[employer] Inc comple t ed influenza virus vaccine, live 01/29/09 Given Ambulat ory Pharmac y typhoid Vi capsular polysaccharid e vac 2008 [id number] 101 sanofi pasteur complet ed typhoid Vi capsular polysacch aride vac 01/29/09 Given Ambulat ory Pharmac y typhoid Vi capsular polysaccharid e vaccine 1 2008 [id number] 101 Sanofi Pasteur (PMC) complet ed typhoid Vi capsular polysacch aride vaccine DoD influenza virus vaccine, live, attenuated, for intranasal use 1 2008 [id number] 111 Flytenow, Inc. (MED) complet ed influenza virus vaccine, live, attenuate d, for intranasa l use DoD influenza virus vaccine,split 2007 [id number] [id number] 15 GlaxoSmithKli ne complet ed influenza virus vaccine,s plit 01/10/08 Given Ambulat ory Pharmac y influenza virus vaccine, split virus (incl. purified surface antigen)-reti red CODE 1 2007 [id number] 2AA 15 SmithKline (SKB) complet ed influenza virus vaccine, split virus (incl. purified surface antigen)- retired CODE DoD typhoid Vi capsular polysaccharid e vac 2006 [id number] 101 sanofi pasteur complet ed typhoid Vi capsular polysacch aride vac 02/19/07 Given Ambulat ory Pharmac y typhoid Vi capsular polysaccharid e vaccine 1 2006 [id number] 101 Sanofi Pasteur (PMC) complet ed typhoid Vi capsular polysacch aride vaccine DoD influenza virus vaccine,split 2006 [id number] 3AA 15 GlaxoSmithKli ne complet ed influenza virus vaccine,s plit 01/17/07 Given Ambulat ory Pharmac y influenza virus vaccine, split virus (incl. purified surface antigen)-reti red CODE 1 2006 [id number] 3AA 15 SmithKline (SKB) complet ed influenza virus vaccine, split virus (incl. purified surface antigen)- retired CODE DoD varicella virus vaccine 0 2006 21 () Not Given varicella virus vaccine DoD influenza virus vaccine,split 2005 [id number] 15 Unknown complet ed influenza virus vaccine,s plit 02/09/06 Given Ambulat ory Pharmac y influenza virus vaccine, split virus (incl. purified surface antigen)-reti red CODE 1 2005 [id number] 15 Other (OTH) complet ed influenza virus vaccine, split virus (incl. purified surface antigen)- retired CODE DoD tuberculin purified protein derivative 2005 [id number] 96 sanofi pasteur complet ed tuberculi n purified protein derivativ e 12/12/05 Given Ambulat ory Pharmac y poliovirus vaccine, inactivated 2005 [id number] 10 sanofi pasteur complet ed polioviru s vaccine, inactivat ed 12/12/05 Given Ambulat ory Pharmac y poliovirus vaccine, inactivated 1 2005 [id number] 10 Sanofi Pasteur (PMC) complet ed polioviru s vaccine, inactivat ed DoD yellow fever vaccine 2005 [id number] 37 sanofi pasteur complet ed yellow fever vaccine 12/10/05 Given Ambulat ory Pharmac y yellow fever vaccine 1 2005 [id number] 37 Sanofi Pasteur (PMC) complet ed yellow fever vaccine DoD hepatitis A-hepatitis B vaccine 2005 [id number] 5AA 104 GlaxoSmithKli ne complet ed hepatitis A-hepatit is B vaccine 10/26/05 Given Ambulat ory Pharmac y hepatitis A and hepatitis B vaccine 3 2005 [id number] 5AA 104 SmithKline (SKB) complet ed hepatitis A and hepatitis B vaccine DoD hepatitis A-hepatitis B vaccine 2005 [id number] 3BA 104 GlaxoSmithKli ne complet ed hepatitis A-hepatit is B vaccine 05/21/05 Given Ambulat ory Pharmac y hepatitis A and hepatitis B vaccine 2 2005 [id number] 3BA 104 [facility] hepatitis A and hepatitis B vaccine DoD hepatitis A-hepatitis B vaccine 2005 [id number] 5AA 104 GlaxoSmithKl ne complet ed hepatitis A-hepatit is B vaccine 03/18/05 Given Ambulat ory Pharmac y typhoid vaccine, parenteral 2005 [id number] 41 sanofi pasteur complet ed typhoid vaccine, parentera l 03/18/05 Given Ambulat ory Pharmac y meningococcal polysaccharid e (MPSV4) 2005 [id number] 32 sanofi pasteur complet ed meningoco ccal polysacch aride (MPSV4) 03/18/05 Given Ambulat ory Pharmac y influenza virus vaccine,split 2005 [id number] 15 sanofi pasteur complet ed influenza virus vaccine,s plit 03/18/05 Given Ambulat ory Pharmac y tetanus-dipht h toxoids (Td) adult/adol 2005 [id number] 09 sanofi pasteur complet ed tetanus-d iphth toxoids (Td) adult/ado l 03/18/05 Given Ambulat ory Pharmac y measles/mumps /rubella virus vaccine 2005 [id number] 03 Merck & Company Inc complet ed measles/m umps/rube lla virus vaccine 03/18/05 Given Ambulat ory Pharmac y measles, mumps and rubella virus vaccine 1 2005 [id number] 03 Merck (MSD) complet ed measles, mumps and rubella virus vaccine DoD tetanus and diphtheria toxoids, adsorbed, preservative free, for adult use (2 Lf of tetanus toxoid and 2 Lf of diphtheria toxoid) 1 2005 [id number] 09 Sanofi Pasteur (PMC) complet ed tetanus and diphtheri a toxoids, adsorbed, preservat malgorzata free, for adult use (2 Lf of tetanus toxoid and 2 Lf of diphtheri a toxoid) DoD influenza virus vaccine, split virus (incl. purified surface antigen)-reti red CODE 1 2005 [id number] 15 Sanofi Pasteur (PMC) complet ed influenza virus vaccine, split virus (incl. purified surface antigen)- retired CODE DoD meningococcal polysaccharid e vaccine (MPSV4) 1 2005 [id number] 32 Sanofi Pasteur (PMC) complet ed meningoco ccal polysacch aride vaccine (MPSV4) DoD typhoid vaccine, parenteral, other than acetone-kille d, dried 1 2005 Q8021-6 41 Sanofi Pasteur (PMC) complet ed typhoid vaccine, parentera l, other than acetone-k illed, dried DoD hepatitis A and hepatitis B vaccine 1 2005 [id number] 5AA 104 SmithKline (SKB) complet ed hepatitis A and hepatitis B vaccine DoD influenza virus vaccine,split 2004 [id number] 15 sanofi pasteur complet ed influenza virus vaccine,s plit 02/10/05 Given Ambulat ory Pharmac y influenza virus vaccine, split virus (incl. purified surface antigen)-reti red CODE 1 2004 [id number] 15 Sanofi Pasteur (PMC) complet ed influenza virus vaccine, split virus (incl. purified surface antigen)- retired CODE DoD Results Combined list of recent chemistry, hematology and other laboratory results from Department of Defense and Veterans Affairs, ranging from 15 months to all on record, depending upon the facility. Order Name Results Value Reference Range Date Interpretation Specimen Comments Source Infectio us Disease HIV-1/O/2 Non-Reac tive 1 (08/13/22 10:45 AM) 08/13 N Interpretiv e Data: INTERPRETAT ION: This method is a screening procedure for the detection of HIV p24 Antigen and Antibodies to HIV-1, including Group O, and/or HIV-2. NON-REACTIV E: HIV-1 antigen and HIV-1 / HIV-2 antibodies were not detected. No laboratory evidence of HIV infection. A negative test result does not exclude the possibility of exposure to or infection with HIV. HIV antibodies and/or p24 antigen may be undetectabl e in some stages of the infection and in some clinical conditions. If acute HIV infection is suspected, consider submitting another specimen to a reference laboratory for HIV-1 RNA. SCREEN REACTIVE - CONFIRMATIO N TO FOLLOW: Possible presence of HIV-1antibo dies, HIV-2 antibodies and/or HIV-1 p24 antigen. Specimen will reflex to the confirmatio n testing that fulfills the Center for Disease Control and Prevention' s HIV diagnostic algorithm. Refer to [facility] Lab Guide for additional information : [email or web address] [email or web address]/ [email or web address] x Testing performed by [facility]. [facility] Tj vieira Sendouts Repository Sample Received (08/13/22 10:45 AM) 08/13 N Ambulator y Pharmacy Vital Signs Combined list of inpatient and outpatient Vital Signs from Department of Defense and Veterans Affairs, ranging from 12 months to all on record, depending upon the facility. Vital Sign Value Date Comments Source No data available for this section Ambulatory Pharmacy Encounters Combined list of: 1) Encounters from Department of Veterans Affairs facilities going back up to thelast 18 months. 2) Encounters from the Department of Defense facilities going back up to 280 months. Location Location Details Encounter Type Encounter Number Reason For Visit Attending Provider ADM Date DC Date Status Disposition Source [address] [place] [address]([facility] Medicine [facility]) OUTPATIENT [id number] SANDRO Car 09/28 Released w/o Limitations [facility]) [facility] Medicine [facility]) OUTPATIENT [id number] SANDRO Okeefe 10/11 Released w/o Limitations [facility] Medical [facility]) [facility] Medical [facility] Medicine [facility]) OUTPATIENT [id number] SANDRO Okeefe 10/16 Released w/o Limitations [facility] Medical [facility]) [address] [place] [address]([facility] Medicine [facility]) [id number] w/o Limitations [facility] Medical [facility]) [address] [place] [address]([facility] Medicine [facility]) OUTPATIENT [id number] SRIDHAR Kauffman 10/19 Released w/o Limitations [address] [place] [address](F light Medicin e [facility]) [place] [address]([facility]er [facility]_Flight_ Med Team A) OUTPATIENT [id number] 2 JENN Perry 11/19 Released w/o Limitations [facility] [place] [address](R eid_Fli ght_Med Team A) [id number]-[id number] AMDS Dental [id number] MAGGY HOLTOND 03/15 Discharge Disposition: Home or Self Care 8344R-4 39 AM[facility] 8344R-439 [facility] Outpatient [id number] AMALIA MARSHALL 06/11 Discharge Disposition: Home or Self Care 8344R-4 39 AMDS 8344R-439 AMDS Between Visit [id number] 09/26 Discharge Disposition: Home or Self Care 8344R-4 39 AMDS 8344R-439 AMDS Between Visit [id number] 11/13 Discharge Disposition: Home or Self Care 8344R-4 39 AMDS 8344R-439 AMDS Between Visit [id number] 01/27 Discharge Disposition: Home or Self Care 8344R-4 39 AMDS Procedures Combined list of: 1) Procedures from Department of Veterans Affairs facilities [facility], not all [place] non-surgical procedures are included; 2) All procedures from the Department of Defense facilities. Procedure Procedure Type Code Date Perfomer Comments Jeremy hernández REMOVAL IMPACTED CERUMEN REQUIRING INSTRUMENTATION, UNILATERAL 04/17/19 12 [facility] NONINVASIVE EAR OR PULSE OXIMETRY FOR OXYGEN SATURATION; SINGLE DETERMINATION 01/05/20 07 [facility] PSYCHIATRIC DIAGNOSTIC INTERVIEW EXAMINATION 10/20/19 06 [facility] Psychiatric Diagnostic Evaluation Comprehensive Examination Psychiatric Diagnostic Evaluation Comprehensive Examination [id number] 10/20/19 06 NOAM CLEMENT [facility] No data available for this section Ambulato ry Pharmacy Social History Combined list of available smoking, tobacco, and other social history from Department of Defense and Veterans Affairs facilities. Social History Type Response Date Comment Sourc e Male 03/22/2022 Ambulatory Pha rmacy This section is an empty soc ial history section. DoD Sexual Orientation Ambula tory Pharmacy Gender identity Ambulator y Pharmacy Assessment and Plan Combined list of future care activities from Department of Defense and Veterans Affairs facilities (e.g., assessment and plan notes, appointments, orders, and referrals). Additional future care activities may be listed in the Plan of Care section. Result Assessment and Plan Date Source Assessment and Plan Extracted from:Title : FLY PHA / MHA Author: MILVIA SHANKAR Date: 06/15/23 mbr came in for appt Addendum by MIRTA DODSON on June 15, 2023 09:18 EDT ?Vitals: Blood Pressure:???138/86 Heart Rate:80 Height:70 Weight:230bs BMI: Medications: Motrin 800 mg PRN cyclobenzaprine 10 mg PRN Atorvastatin 20mg Chronic Problems: ?P7PU-Zacdsqosa low back pain Hyperlipidemia SF 507: _ Comments: Addendum by TERESE MUELLER V on June 15, 2023 09:47 EDT History of Refractive Surgery- No?Contact Lenses- N/A?Enrolled in Contact Lens Program- N/A?Gas Mask Inserts ordered- No?Current SRX on file- No DVA (uncorrected) OD: 20/100 OS:?20/50 DVA (Corrected) OD: 20/20 OS: 20/20 NVA (uncorrected) OD: 20/25 OS: 20/30 Phorias: ESO _0_ EXO _2__ RH _0__ LH __0_ Depth Perception Corrected?Pass through _F__ IOP OD: 12 OS: 12 Time:?0947 Optometry findings meet standards- Yes Addendum by OLIVE HAMILTON on June 15, 2023 11:15 EDT Chief Complaint: Member here for annual fly PHA. Patient is able to complete duties required by [facility]. No acute complaints.NO: Fly?waiver. Initial Waiver Date: Waiver Exp Date: Ivonne. Test results reviewed: Audio: Audiogram H-1, no asymmetric hearing loss, no significant threshhold shift Optometry:Meets vision standards for: Near and distant visual acuity, IOP, Depth perception, Phorias EKG:?_ PHYSICAL EXAM: HEENT:?Normal Valsalva:?Normal Joints:?Normal Spine:Normal Skin:Normal Neuro:?Normal Lungs:?Normal Heart:?Normal Abdomen:?Normal Comments: Member has chronic condition and is currently DNIF. 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 Last Name: JOHN 2. First Name: MARCELINO 3. Middle Name: SAGAR 4. Assessment Date: 5. : 6. Age: 53 7. Gender: M 8. Do[employer] ID Number: [id number] 9. Service Branch: [employer] 10. 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 Unit Name: Gagandeep AZUL 14. Duty Station/Location: [place] 15. UIC: [id number] 16. Is this your first Periodic Health Assessment (PHA)?: N 17. Are you enrolled in a secure messaging system with your health care provider?: 18. Current contact information: Preferred Method: Email 2 DSN: [id number] Day Time Phone: [phone] Night Time Phone: [phone] Email 1: [email or web address] Email 2: [email or web address] Address: [address] [place] [address]: [facility]: [place] Zip Code: [address] 19. Point of contact who can always reach you: Name: JANEY LOPEZ Phone 1: [phone] Phone 2: EMAIL: [email or web address] Address: [address] [place] [address]: [facility]: [place] Zip Code: [address] II. DEPLOYMENT INFORMATION (DEP) 1. [ 0 ] Total number of deployments in the PAST 5 YEARS 4. [ N ] Are you going to deploy within the NEXT 120 DAYS? III. OCCUPATIONAL INFORMATION (OCC) 1 [ [id number] ] What is your occupational code 2. [ [employer] ] Describe your typical duty 3. [ Yes ] Does your specialty require an operational duty physical exam? 4. [ No ] Are you currently enrolled in a medical surveillance/occupational health program?: No IV. MEDICAL CONDITIONS (DHARA): 1. Since your last PHA, have you experienced any of the following health conditions, and if so, what is your status? [ Persistent or recurring noises in head or ears ] Conditions with no medical care [ ] Conditions with medical care, but no longer under treatment [ High or bad cholesterol ] Conditions with medical care, and NOW under treatment 2. Since your last PHA, have you experienced any of the following health conditions, and if so, what is your status? [ ] Conditions with no medical care [ ] Conditions with medical care, but no longer under treatment [ Recurring muscle, joint, or low back pain ] Conditions with medical care, and NOW under treatment 3. For any condition marked YES in question 1 or 2, are you currently on any profile or limited duty for that condition? [ Recurring muscle, joint, or low back pain ] Conditions 4. [ Not Sure ] Have you been based or stationed at a location where an open burn pit was used? 5. [ Not Sure ] Have you been exposed to toxic airborne chemicals or other airborne contaminants? 6. [ No ] Are you enrolled in the Airborne Hazards and [place] Registry? 7. [ Y ] Federal law requires eligible members to enroll in the Airborne Hazards and [place] Registry or opt-out. If eligble, choose one: 8. Have you had any surgery since your last PHA?: Yes 9. What was the condition(s) for which you had surgery and the type of surgery? 9.a. Condition: LOWER BACK PAIN 5.a.1 Type of Surgery: LUMBER LAMINECTOMY 9.b. Condition: LOWER BACK PAIN 5.b.1 Type of Surgery: RADIO FREQUENCY ABLATION 9.c. Condition: LOWER BACK PAIN 5.c.1 Type of Surgery: 10.a. [ Yes ] Since your last PHA, has a health care provider recommended surgery(s) that you have not had? 10.b. [ LOWER BACK PAIN ] For what condition(s) was surgery recommended? 11.a. [ No ] Do you currently require hearing aids, special medical supplies, CPAP, adaptive equipment, assistive technology devices, and/or other special accommodations? 12.a. [ Yes ] Do you have a waiver or profile for any part of your Service's physical fitness test? 12.b. [ Cardio EventCrunches/Sit-Ups, Push-Ups ] Which component(s) of your physical fitness test are waived/profiled? 13.a. [ No ] Do you have any problems wearing a gas mask, ballistic helmet, body armor, and/or chemical/biological protective garments? 14.a. [ No ] Have you ever been told by a health care provider that you SHOULD NOT receive an immunization for medical reasons? 15.a. [ Don't Know ] Do you have a permanent profile or an Assignment Limitation Code C? 16.a. [ Yes ] Are you on a temporary profile or limited duty? 16.b. [ LOWER BACK PAIN ] Why? 17. [ 1 ] During the PAST 2 years, how many times have you been placed on a temporary profile or on limited duty? V. INDIVIDUAL MEDICAL READINESS (IMR) 1. [ Yes ] Do you have any allergies? 2. [ [place] ] Allergy List 3. [ No and required ] Do you have red medical warning dog tags? 4. [ Yes ] Do you wear corrective lenses? 5. [ 0 ] How many pairs of glasses do you have? 6. [ No ] Do you have gas mask inserts? . BEHAVIORAL HEALTH (MHA) 1. a. [ None ] Over the PAST MONTH, what major life stressors have you experienced that are a cause of significant concern or make it difficult for you to do your work, take care of things at home, or get along with other people (for example, serious conflicts with others, relationship problems, or a legal, disciplinary or financial problem)? 2. a. [ No ] In the PAST YEAR did you receive care for any mental health condition or concern such as, but not limited to post traumatic stress disorder (PTSD), depression, anxiety disorder, alcohol abuse or substance abuse? 3. [ Yes CYCLOBENZAPRINE ] What prescription or over-the counter medications (including herbals/supplements) for sleep, pain, combat stress, or a mental health problem are you CURRENTLY taking? 4. a. [ No ] In the past 12 months, have you gambled? 5. a. [ 2-4 times a month ] How often do you have a drink containing alcohol? 5. b. [ 1 or 2 ] How many drinks containing alcohol do you have on a typical day when you are drinking? 5. c. [ Less than monthly ] How often do you have six or more drinks on one occasion? 6. Have you ever had any experience that was so frightening, horrible, or upsetting that in the PAST MONTH, you: 6. a. [ No ] Have had nightmares about it or thought about it when you did not want to? 6. b. [ No ] Tried hard not to think about it or went out of your way to avoid situations that remind you of it? 6. c. [ No ] Were constantly on guard, watchful or easily startled? 6. d. [ No ] [place] numb or detached from others, activities, or your surroundings? 6. e. [ Not answered ] [place] guilt or unable to stop blaming yourself or others for the event(s) or any problems the event(s) may have caused? 7. Over the LAST 2 WEEKS, how often have you been bothered by the following problems? 7. a. [ Not at all ] Little interest or pleasure in doing things 7. b. [ Not at all ] Feeling down, depressed, or hopeless 8. [ No ] Would you like to schedule an appointment with a health care provider to discuss any health concern(s)? 9. [ No ] Are you interested in receiving information or assistance for a stress, emotional or alcohol concern? 10. [ No ] Are you interested in receiving assistance for a family or relationship concern? 11. [ No ] Would you like to schedule a visit with a training and development director, mental health care provider, or a community support counselor? VII. FAMILY HISTORY AND LIFESTYLE (LIF) 1. [ Fair ] Overall, how would you rate your health during the PAST MONTH? 2. [ Heart-related conditions, Diabet ] Member indicates that family members have the following problems 4. The following family members has/had a history of heart-related conditions: High Blood Pressure: Father Heart Attack: Father 5. The following family members has/had a history of diabetes: Type II: Father 6. [ No ] I participate in moderate intensity physical activites at least 2.5 hours, or a combination of moderate and vigorous aerobic activites, for at least 75 minutes per week. 7. In a typical week, I do physical activities specifically designed to STRENGTHEN my muscles: [ 0 ] Day(s) per week 8. [ TYLENOL, ADVIL ] What prescriptions or cueb-kox-muwtxud medications are you CURRENTLY taking for health problems on a ROUTINE BASIS? 9. Which of the following products have you taken since your last PHA: Individual Vitamins or Minerals: Once a day 11. Think about the PAST 30 DAYS. How often did you eat/drink the following foods/beverages? [ 1 serving per day ] Fruits [ 2 servings per day ] Vegetables [ 1 or 2 servings per week ] Starchy Vegetables [ 1 or 2 servings per week ] Whole Grains [ 1 serving per day ] Dairy and Calcium Containing Foods [ Rarely or Never ] Fish [ 1 serving per day ] Lean Protein [ 1 or 2 servings per week ] Sugar-Sweetened Beverages 12. [ Yes ] Have you had a cholesterol check by a health pet care worker within the PAST 5 YEARS? 13.a. In the PAST 30 DAYS, which of the following products have you used on at least one day? None 15. Which of the following best describes your past tobacco use? I have never used tobacco products. 16. [ No ] Are you regularly exposed to secondhand smoke? 17. [ 5 to less than 7 hours ] During the LAST 2 WEEKS, how many hours of sleep did you get on most days? 18. [ Yes ] During the LAST 2 WEEKS, have you felt impaired or unable to adequately perform due to sleepiness or poor quality sleep? 19. [ No ] Have you had any unexplained weight loss or gain since your last PHA? 20. Member is not at risk for sexually transmitted infections. 22. Since your last PHA, what, if anything, have you and your partner used to keep from getting ? [ Sterilization ] I am actively taking steps to prevent , including 23. [ No ] In the last year, have you or your partner had a scare, where you were not trying to get but were worried enough to use a home test? IX. RESERVE COMPONENT (RES) 1. [ No ] Do you have an injury, illness, Or disease which was incurred or aggravated while in a duty status since your last PHA? 4. [ Yes - ] Are you currently coverered under a health insurance policy? 5.a. [No, I have never applied for Worker's Compensation ] Do you have any current physical or mental health limitations related to a Worker's Compensation claim? 6. [ No ] Have you applied for or have you received a VA disability rating? X. OTHER MEDICAL (OTH) 1. [ 5 ] Rate the amount of pain you have had, on average, over the PAST 24 HOURS 2. [ Yes ] Are you receiving treatment for pain? 3. [ No ] Since your last PHA, have you received care or treatment for any medical and/or mental health condition(s) from a civilian or non- facility? 5. Member acknowledged responsibility for reporting health issues. 7. [ No ] Woud you like to schedule an appointment with a health care provider to discuss any health concerns? XI. SEPARATION AND CARE HOME 1. [ No ] Are you planning to separate or retire within the next year from Active Duty or [place] Duty (activated for greater than 30 continuous days) OR do you intend to file a claim for disability compensation with the Veterans Benefits Administration? PART B. RECORD REVIEW AND RECOMMENDATIONS I. RECORD REVIEWER INFORMATION 1. Last Name: DICKENS 2. First Name: GOLDIE 3. Middle Name: VÍCTOR 4. 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 Status: 6. 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 EMAIL: [email or web address] 8. Facility: [facility] 9. Unit: [facility] 10. Address: [address] [place] [address] 11. State: [facility]. Zip Code: [address] 13. Phone: [phone] 14. Date Record Review: II. MEDICAL SCREENING 1. [ ] Date of administrative appeals tribunal member's most recent PHA 2. [ 5 feet 10 inches Date: ] administrative appeals tribunal member's most recently documented height 3. [ 252 pounds Date: ] administrative appeals tribunal member's most recently documented weight 4. [ 131/87 Date: ] administrative appeals tribunal member's most recently documented blood pressure reading 5. [ No ] Does the administrative appeals tribunal member have a history of abnormal blood pressure since their last PHA? 6. [ Yes ] Does the administrative appeals tribunal member have a laboratory test of sickle cell trait documented in their permanent medical record? 7. [ No Cholesterol Test Documented ] What is the date of the administrative appeals tribunal member's most recently documented cholesterol test? 8. [ No Colon Cancer Screening Documented ] What is the date of the administrative appeals tribunal member's most recently documented colon cancer screening? 9. [ Motrin 800 mg, cyclobenzaprine 10 mg ] List of administrative appeals tribunal member's active medications listed in their permanent medical record 10. [ No ] Is there a discrepancy between the active medication record review and the administrative appeals tribunal member's self-reported list of medications? 11. [ Nerve root compression; low back pain ] List documented significant care the administrative appeals tribunal member has received since their last PHA from a provider OUTSIDE the Health System 12. [ No ] Is there a discrepancy between the administrative appeals tribunal member's list of OUTSIDE care (from OT5), and the OUTSIDE care found in the record? 13. [ No Inside Care Documented ] List documented significant care the administrative appeals tribunal member has received since their last PHA from a provider INSIDE the Health System 14. Is there documentation in the record for each surgery listed below? LOWER BACK PAIN/LUMBER LAMINECTOMY: Yes LOWER BACK PAIN/RADIO FREQUENCY ABLATION: Yes 15. [ Not Answered ] Confirm that vaccine exemptions are listed in the medical record for each vaccine listed 16. [ No Discrepancies Noted ] Review available medical documentation of allergies and compare with administrative appeals tribunal member responses. Document any discrepancies III. OCCUPATION-SPECIFIC EXAMINATIONS 1. [ ] When was the administrative appeals tribunal member's most recently documented special operational duty physical exam? IV. FAMILY HISTORY AND LIFESTYLE 1. [ Yes ] Does the [id number] reflect the administrative appeals tribunal member's reported family history? VII. INDIVIDUAL MEDICAL READINESS 1. [ No ] Does the administrative appeals tribunal member have an Assignment Limitation Code C? 2. [ 7 Expires: ] Number of months in the past year the administrative appeals tribunal member has been in temporary duty status 3. [ Classification: 1 ] Most recently documented dental exam 4. [ Yes ] Is the administrative appeals tribunal member current on all required immunizations in the immunization tracking system? 5. [ Yes ] Is the administrative appeals tribunal member current with Service-specific requirements for glasses and gas mask inserts? 6. Does the administrative appeals tribunal member have the following laboratory tests documented in their permanent medical record? [ Yes ] HIV test within the PAST 24 months [ Yes ] G6PD results on file [ Yes ] Blood type and Rh on file [ Yes ] DNA test on file IX. ADDITIONAL RECORD REVIEWER COMMENTS 1. This record review does NOT have a need for provider notification or referral.2. Additional comments about this record review that need to be forwarded to the Health [employer] completing PART C: Tinnitus, high cholesterol, low back pain. Pain 5/10. Has current AF 469. Has felt impaired due to sleepiness during past 2 wks. Negative depression screening. No major stressors, gambling, or alcohol concerns. Takes individual vitamins/minerals daily. Inadequate diet and exercise. Date Record Review Completed: --------- PART C. HEALTH CARE PROVIDER I. MENTAL HEALTH ASSESSMENT (MHA) PROVIDER INFORMATION 1. Last Name: ALFONSO 2. First Name: OLIVE 3. Middle Name: 4. 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 Status: Reservist 6. Title: Physician (DO STEPHIE) 7. EMAIL: [email or web address] 8. Facility: [address] [place] [address] 9. Unit: [address] [place] [address] 10. Address: [address] [place] [address] 11. State: [place] 12. Zip Code: [address] 13. 14. Date HCP Review initiated: 1. Member marked that they did not have a concern or a difficulty with a major life stressor. 2. Address concerns identified on member questions 2 and 3. History of mental health care: N/A Member's response: Provider's comments: Medications: Member indicated concern or yes Member's response: CYCLOBENZAPRINE CYCLOBENZAPRINE Provider's comments: reviewed 3. Member's AUDIT-C screening score was 3. (nothing required) 4. Member did not rashmi yes on two or more of questions 6a through 6e. 5. Member did not rashmi More than half the days or nearly every day on question 7a or 7b. 6. Suicide risk evaluation. 6. a. Ask: Over the past month, have you wished you were or wished you could go to sleep and not wake up?: No 6. b. Ask: Have you actually had any thoughts of killing yourself?: No 6. f. 1. Ask: In you lifetime, have you done anything, started to do anything, or prepared to do anything to end your life?: No 6. g. Further risk assessment comments: 7. Member states that they have not had thoughts or concerns over the past month that they might hurt or lose control with someone. 9. Summary of Provider's identified concerns needing referrals: - Physical Health Recommended referal(s): Primary Care, Family Practice, Internal Medicine: Within 30 days 11. Comments: administrative appeals tribunal member reported they have not gambled in the past 12 months. 13. Supplemental services recommended/information provided: No supplemental services required Date MHA Certified: III. PERIODIC HEALTH ASSESSMENT (PHA) PROVIDER INFORMATION 1. Last Name: ALFONSO 2. First Name: OLIVE 3. Middle Name: 4. 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 Status: Reservist 6. Title: Physician (DO STEPHIE) 7. EMAIL: [email or web address] 8. Facility: [address] [place] [address] 9. Unit: [facility] 10. Address: [address] [place] [address] 11. State: [place] 12. Zip Code: [address] 13. 14. Date HCP Review initiated: IV. PERIODIC HEALTH ASSESSMENT PROVIDER RECOMMENDATIONS and REFERRALS 1. Provider concerns with this assessment: Issue or concerns identified after review of administrative appeals tribunal member responses, medical documentation, and Mental Health Assessment. 2. Summary of Provider's identified concerns: - Physical Health Recommended referal(s): Primary Care, Family Practice, Internal Medicine: Within 30 days Referral Time Comments: V. SUMMARY AND COMMENTS 1. Additional information summarizing findings during the administrative appeals tribunal member assessment: 2. Provider Comments: PCP follow up s/p back surgery and post physical therapy- member is under care . INDIVIDUAL MEDICAL READINESS DISPOSITION DETERMINATION DHARA: Not Ready DEN: Ready IMM: Ready LAB: Ready ME: Ready IMR Status: Partially Medically Ready VII. SERVICE MEDICAL DEPLOYABILITY EVALUATION INDICATED Based on your review of all documentation, is the administrative appeals tribunal member medically deployable without limitations? Reference Alea 6490.07 No (administrative appeals tribunal member currently has a medical condition that DOES require duty limitation(s) AND limits deployability) Date PHA Completed: END OF [id number] REPORT Impression: Meets?_?medical standards per YAMILA 48-123/MSD. Aeromedical Disposition: DNIF. DD 2992?signed. No AF469 changes based on this encounter. No change to deployability status 02/19/2024 Ambulatory Pharmacy Functional Status Combined list of recent functional and cognitive assessments recorded at Department of Defense and Veterans Affairs (VA).VA Functional [place] Measurement (FIM) Scale: 1 = Total Assistance (Subject = 0% +), 2 = Maximal Assistance (Subject = 25% +), 3 = Moderate Assistance (Subject = 50% +), 4 = Minimal Assistance (Subject = 75% +), 5 = Supervision, 6 = Modified [place] (Device), 7 = Complete [place] (Timely, Safely). Assessment Date/Time Source Assessment Type Assessment Skill Assessment Score Assessment Details No data available for this section
== END 2024-02-17 11:18 | disposition home or self-care (01) ==
PROVIDERS: PCP Nurse Practitioner Family; Visit Provider Nurse Practitioner Family
DX: M54.50 Low back pain, unspecified (principal); M79.606 Pain in leg, unspecified; M51.369 Other intervertebral disc degeneration, lumbar region without mention of lumbar back pain or lower extremity pain; M96.1 Postlaminectomy syndrome, not elsewhere classified
CPT/HCPCS: 99214; G2211

== ENCOUNTER → 2024-02-17 10:45 | Outpatient (BNVA) | payer OTHER, SELFPAY | PROVIDERS: PCP Nurse Practitioner Family; Visit Provider Nurse Practitioner Family | DX: M54.50 Low back pain, unspecified (principal); M79.606 Pain in leg, unspecified; M51.360 Other intervertebral disc degeneration, lumbar region with discogenic back pain only; M96.1 Postlaminectomy syndrome, not elsewhere classified; G54.9 Nerve root and plexus disorder, unspecified | CPT/HCPCS: 99212 ==

== ENCOUNTER 2024-03-16 14:48 | Outpatient (AMB) | payer OTHER, SELFPAY ==
--- NOTE | 2024-03-16 14:52 | A.SPINEOV_ITS ---
Vital Signs 03/16/24 14:58 Height 5 ft 10 in Weight 265 lb BMI 38.0 Intake Visit Reasons: disc displacement, lumbar region Intake Note: Mr. Ahumada is here today c/o low back pain. 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 He is a pleasant 54-year-old male who comes in today with a chief complaint of low back pain and numbness and tingling in his bilateral lower extremities. He states that his low back pain initially began without any inciting incident in the summer of 2021, and was accompanied by shooting pain down his right lower extremity. As a result of this he went to physical therapy, attempted jdvr-oct-jnoqkkn and prescription medications, and eventually underwent a microdiskectomy which he reports was done by Dr. Rowley at [facility]. He is unsure which level was operated on. He reports good relief of both his back pain in the shooting pain down his right leg after the surgery. Unfortunately about 6 months postoperatively he began experiencing low back pain once more, and within a few months after the onset of back pain he began having numbness and tingling in his bilateral anterior thighs, which worsened with ambulation. He reports he is now only able to walk about a half a mile until his bilateral anterior thighs be an experiencing numbness/tingling. His right leg is affected worse than in his left, and also includes is right foot. He is only able to obtain relief if he is able to lie down and rest. He has attempted physical therapy twice, has attempted career placement services counselor, and is utilize xktm-luk-pqfubsc medications including Tylenol and ibuprofen without significant relief of symptoms. He is currently taking prescribed gabapentin and cyclobenzaprine an effort to help mitigate his symptoms. When asked which is worse (back pain or leg symptoms) he states that it is a ?50 / 50 split but does acknowledge that his back pain is constant and his leg symptoms only occur with ambulation. To further clarify, he does not have any leg pain; just numbness and tingling that is worse on the right. PMH: Hyperlipidemia, seasonal allergies, history of microdiskectomy at [facility]. Social hx: Patient does not smoke, reports no substance use. Medications: Gabapentin, cyclobenzaprine, atorvastatin. Allergies: Amoxicillin. Physical exam: The patient has 5/5 strength in his upper and lower extremities. He ambulates well and rises from a seated position without difficulty. He has no significant sensational deficits at baseline when resting. His reflexes are 2+ intact. (-) bilateral straight leg raise, (-) Amaya's, (-) clonus. Imaging review: MRI of the lumbar spine completed at [facility] on 02/28/24 shows varying levels of lumbar spondylosis. There is mild bilateral foraminal stenosis at L3-4, moderate right-sided foraminal stenosis at L4-5, and a central disc herniation at L5-S1 causing some effacement of the ventral thecal sac, with mild-moderate right-sided foraminal stenosis. This MRI is difficult to assess due to poor quality and patient movement. Upon reviewing his older MRI from 2021 it does appear he had a disc herniation at L5-S1 similar in size to the one seen on most recent MRI. Impression: Chris is a pleasant 54-year-old male who comes in today with a chief complaint of low back pain and numbness/tingling in his bilateral lower extremities (worse on the right). He reports he had back pain and shooting radicular pain down his right leg back in 2021 which was initially treated at [facility] via surgery. He is unsure what surgery was performed. Unfortunately, after about six-month postoperatively he was left with intractable low back pain, and numbness/tingling in his bilateral anterior thighs and right foot. Thankfully his right radicular pain has not returned since surgery. Since then, he has attempted physical therapy and several other conservative measures. He has not as of yet attempted cortisone injections. I believe they could be very useful in identifying a causative agent for his pain, and may prevent further surgery. His symptoms are most likely coming from the L4-5, L5-S1 stenosis/disc herniation. It sounds like he is suffering from low back pain with neurogenic claudication as a result of this. I would like to see him back in clinic after his injections are complete. I will refer him to Dr. Bonilla at [facility] phys[facility]. I will also have our manager of medical call [facility] and obtain his operative report. Thank you for allowing us to care for your patient. The total time spent with this visit with this patient was 45 minutes reviewing history, physical exam, MRI imaging review, and implementation of treatment plan or further diagnostic testing Rg Huber MD,PhD [facility] Orders: Referrals Pain Management Referral M96.1 - Postlaminectomy syndrome, not elsewhere classified Coding Level of Care Code New Pt Level 4 (13309) Diagnoses Lumbar post-laminectomy syndrome M96.1
[2024-03-16 14:58] VITALS: BMI 38.0
--- OUTSIDE RECORDS SUMMARY | 2024-03-16 16:55 | XMS_ITS | Continuity of Care Document ---
Author Name [facility] Organization [facility] Care Team Providers Care University Demonstrator Name Role Phone [facility] Unavailable Unavailable Problems Combined list of problems from Department of Defense and Veterans [facility] facilities. It does not include entries [...] ORAL, 'S LAB, 500 ea. BOTTLE Active [id number] 2023 90 Pharmac y Data Transac [...] Site Reaction Lot Number CVX Code Drug Operations Scheduler Status Comments Source influenza, injectable, quadrivalent- pf 2021 [id number] GlaxoSmithKli ne complet ed influenza , injectabl e, quadrival ent-pf 01/16/22 Given Ambulat ory Pharmac y tetanus, diphtheria, acellular pertu is 2021 [id number] 115 sanofi pasteur complet ed tetanus, diphtheri a, acellular pertussis 01/16/22 Given Ambulat ory Pharmac y influenza, injectable, quadrivalent, preservative free 2020 BOGDASARIAN, () Not Given influenza , injectabl e, quadrival ent, preservat malgorzata free [facility] COVID-19, mRNA, LNP-S, PF, 30 mcg/0.3 mL dose 2020 JESSICAEposSANT[place]AG[place]allidus[place] (PFR) Not Given COVID-19, mRNA, LNP-S, PF, 30 mcg/0.3 mL dose DoD COVID Vaccine Pfizer 2020 [id number] PFIZER complet ed COVID Vaccine Pfizer 11/17/20 Given Ambulat ory Pharmac y typhoid Vi capsular polysaccharid e vac 2020 [id number] 101 sanofi pasteur complet ed typhoid Vi capsular polysacch aride vac 04/26/20 Given Ambulat ory Pharmac y influenza, injectable, quadrivalent- pf 2019 [id number] 150 Seqirus complet ed influenza , injectabl e, quadrival ent-pf 01/16/20 Given Ambulat ory Pharmac y influenza, injectable, quadrivalent- pf 2018 [id number] 150 Seqirus complet ed influenza , injectabl e, quadrival ent-pf 02/14/19 Given Ambulat ory Pharmac y Influenza, injectable, quadrivalent, preservative free 0 2018 [id number] 346 150 Seqirus (SEQ) complet ed Influenza , injectabl e, quadrival ent, preservat malgorzata free DoD meningococcal A,C,Y,W-135 (MCV4P) 2018 [id number] 114 sanofi pasteur complet ed meningoco ccal A,C,Y,W-1 35 (MCV4P) 04/18/18 Given Ambulat ory Pharmac y typhoid Vi capsular polysaccharid e vac 2018 [id number] 101 sanofi pasteur complet ed typhoid Vi capsular polysacch aride vac 04/18/18 Given Ambulat ory Pharmac y influenza, injectable, quadrivalent- pf 2018 [id number] 150 Seqirus complet ed influenza , injectabl e, quadrival ent-pf 04/18/18 Given Ambulat ory Pharmac y typhoid Vi capsular polysaccharid e vaccine 6 2018 [id number] 101 Sanofi Pasteur (PMC) complet ed typhoid Vi capsular polysacch aride vaccine DoD meningococcal polysaccharid e (groups A, C, Y and W-135) diphtheria toxoid conjugate vaccine (MCV4P) 3 2018 [id number] 114 Sanofi Pasteur (PMC) complet ed meningoco ccal polysacch aride (groups A, C, Y and W-135) diphtheri a toxoid conjugate vaccine (MCV4P) DoD Influenza, injectable, quadrivalent, preservative free 11 2018 [id number] 150 Seqirus (SEQ) comple t ed Influenza , injectabl e, quadrival ent, preservat malgorzata free DoD typhoid Vi capsular polysaccharid e vac 2013 J1201 1 101 sanofi pasteur complet ed typhoid Vi capsular polysacch aride vac 03/21/13 Given Ambulat ory Pharmac y measles/mumps /rubella virus vaccine 2013 [id number] 03 Merck & Company Inc complet ed measles/m umps/rube lla virus vaccine 03/21/13 Given Ambulat ory Pharmac y measles, mumps and rubella virus vaccine 2 2013 [id number] 03 Merck (MSD) complet ed measles, mumps and rubella virus vaccine DoD typhoid Vi capsular polysaccharid e vaccine 5 2013 J1201 1 101 Sanofi Pasteur (PMC) complet ed typhoid Vi capsular polysacch aride vaccine DoD Influenza, injectable, MDCK-pf 2012 [id number] 153 Novartis Pharmaceutica complet ed Influenza , injectabl e, MDCK-pf 01/04/13 Given Ambulat ory Pharmac y Influenza, injectable, Madin [place] Canine Kidney, preservative free 0 2012 [id number] 153 Novartis Pharmaceutica l Izabella. (NOV) complet ed Influenza , injectabl e, Madin [place] Canine Kidney, preservat malgorzata free DoD influenza, seasonal, injectable-pf 2011 [id number] 140 CSL Behring complet ed influenza , seasonal, injectabl e-pf 01/13/12 Given Ambulat ory Pharmac y tetanus, diphtheria, acellular pertu is 2011 [id number] 115 sanofi pasteur complet ed tetanus, diphtheri a, acellular pertussis 01/13/12 Given Ambulat ory Pharmac y tetanus toxoid, reduced diphtheria toxoid, and acellular pertu is vaccine, adsorbed 0 2011 [id number] 115 Sanofi Pasteur ([facility]) complet ed tetanus toxoid, reduced diphtheri a toxoid, and acellular pertussis vaccine, adsorbed DoD Influenza, seasonal, injectable, preservative free 9 2011 [id number] 140 CS [employer] (CS) complet ed Influenza , seasonal, injectabl e, preservat malgorzata free DoD typhoid Vi capsular polysaccharid e vac 2010 [id number] 101 sanofi pasteur complet ed typhoid Vi capsular polysacch aride vac 01/13/11 Given Ambulat ory Pharmac y influenza, seasonal, injectable-pf 2010 [id number] [id number] 140 CSL Behring complet ed influenza , seasonal, injectabl e-pf 01/13/11 Given Ambulat ory Pharmac y typhoid Vi capsular polysaccharid e vaccine 4 2010 [id number] 101 Sanofi Pasteur ([facility]) complet ed typhoid Vi capsular polysacch aride vaccine DoD Influenza, seasonal, injectable, preservative free 8 2010 [id number] 140 CS [employer] (CS) complet ed Influenza , seasonal, injectabl e, preservat malgorzata free DoD meningococcal A,C,Y,W-135 (MCV4P) 2010 [id number] 114 sanofi pasteur complet ed meningoco ccal A,C,Y,W-1 35 (MCV4P) 03/19/10 Given Ambulat ory Pharmac y meningococcal polysaccharid e (groups A, C, Y and W-135) diphtheria toxoid conjugate vaccine (MCV4P) 1 2010 [id number] 114 Sanofi Pasteur ([facility]) complet ed meningoco ccal polysacch aride (groups A, C, Y and W-135) diphtheri a toxoid conjugate vaccine (MCV4P) [facility] influenza virus vaccine,split 2009 [id number] 1B 15 CSL Behring complet ed influenza virus vaccine,s plit 12/22/09 Given Ambulat ory Pharmac y anthrax vaccine 2009 [id number] 24 Emergent Biosolutions complet ed anthrax vaccine 12/22/09 Given Ambulat ory Pharmac y influenza virus vaccine, split virus (incl. purified surface antigen)-reti red CODE 1 2009 [id number] 15 [employer] (CSL) complet ed influenza virus vaccine, split virus (incl. purified surface antigen)- retired CODE DoD anthrax vaccine 1 2009 [id number] 24 [employer]gent [employer] [place] (MIP) complet ed anthrax vaccine DoD Novel influenza-H1N 1-09, injectable 2009 [id number] 1 127 Novartis Pharmaceutica ls complet ed Novel influenza -N3M2-64, injectabl e 04/03/09 Given Ambulat ory Pharmac y Novel influenza-H1N 1-09, injectable 1 2009 [id number] 1 127 Novartis Pharmaceutica l Izabella. (NOV) complet ed Novel influenza -M3H2-85, injectabl e DoD influenza virus vaccine, live 2008 [id number] 111 Otter[employer] Inc comple t ed influenza virus vaccine, [...] live, attenuated, for intranasal use 1 2008 [id number] 111 AutoESL, Inc. (MED) complet ed influenza virus vaccine, [...] virus vaccine DoD influenza virus vaccine,split 2005 [id number] 15 Unknown complet ed influenza virus vaccine,s plit 02/09/06 Given Ambulat ory Pharmac y influenza virus vaccine, split virus (incl. purified surface antigen)-reti red CODE 1 2005 [id number] 15 Other (OTH) complet ed influenza virus vaccine, split virus (incl. purified surface antigen)- retired CODE DoD tuberculin purified protein derivative 2005 [id number] 96 sanofi pasteur complet ed tuberculi n purified protein derivativ e 12/12/05 Given Ambulat ory Pharmac y poliovirus vaccine, inactivated 2005 [id number] 10 sanofi pasteur complet ed polioviru s vaccine, inactivat ed 12/12/05 Given Ambulat ory Pharmac y poliovirus vaccine, inactivated 1 2005 Y1068 10 Sanofi Pasteur (PMC) complet ed polioviru s vaccine, inactivat ed DoD yellow fever vaccine 2005 [id number] 37 sanofi pasteur complet ed yellow fever vaccine 12/10/05 Given Ambulat ory Pharmac y yellow fever vaccine 1 2005 [id number] 37 Sanofi Pasteur (PMC) complet ed yellow [...] B vaccine 2 2005 [id number] [facility] hepatitis A and hepatitis B vaccine DoD hepatitis A-hepatitis B vaccine 2005 [id number] 5AA 104 GlaxoSmithKl ne complet ed hepatitis A-hepatit is B vaccine 03/18/05 Given Ambulat ory Pharmac y typhoid vaccine, parenteral 2005 P5082-7 41 sanofi pasteur complet ed typhoid vaccine, parentera l 03/18/05 Given Ambulat ory Pharmac y meningococcal polysaccharid e (MPSV4) 2005 [id number] 32 sanofi pasteur complet ed meningoco ccal polysacch aride (MPSV4) 03/18/05 Given Ambulat ory Pharmac y influenza virus vaccine,split 2005 [id number] 15 sanofi pasteur complet ed influenza virus vaccine,s plit 03/18/05 Given Ambulat ory Pharmac y tetanus-dipht h toxoids (Td) adult/adol 2005 [id number] 09 sanofi pasteur complet ed tetanus-d iphth [...] 2 Lf of diphtheria toxoid) 1 2005 [id number] 09 Sanofi Pasteur (PMC) complet ed tetanus and diphtheri a toxoids, adsorbed, preservat malgorzata free, for adult use (2 Lf of tetanus toxoid and 2 Lf of diphtheri a toxoid) DoD influenza virus vaccine, split virus (incl. purified surface antigen)-reti red CODE 1 2005 [id number] 15 Sanofi Pasteur (PMC) complet ed influenza virus vaccine, split virus (incl. purified surface antigen)- retired CODE DoD meningococcal polysaccharid e vaccine (MPSV4) 1 2005 [id number] 32 Sanofi Pasteur (PMC) complet ed meningoco ccal polysacch aride vaccine (MPSV4) DoD typhoid vaccine, parenteral, other than acetone-kille d, dried 1 2005 L3218-6 41 Sanofi Pasteur (PMC) complet ed typhoid vaccine, parentera l, other than acetone-k illed, dried DoD hepatitis A and hepatitis B vaccine 1 2005 [id number] 104 SmithKline (SKB) complet ed hepatitis A and hepatitis B vaccine DoD influenza virus vaccine,split 2004 [id number] 15 sanofi pasteur complet ed influenza virus vaccine,s plit 02/10/05 Given Ambulat ory Pharmac y influenza virus vaccine, split virus (incl. purified surface antigen)-reti red CODE 1 2004 [id number] 15 Sanofi Pasteur (PMC) complet ed influenza [...] Prevention' s HIV diagnostic algorithm. Refer to [facility] Lab Guide for additional information : [email or web address] x Testing performed [...] ADM Date DC Date Status Disposition Source [address] [place] [address]([facility]) OUTPATIENT [id number] SANDRO Car 09/28 Released w/o Limitations [facility]) [facility]) OUTPATIENT [id number] SANDRO Okeefe 10/11 Released w/o Limitations [facility]) [facility]) OUTPATIENT [id number] SANDRO Okeefe 10/16 Released w/o Limitations [facility]) [address] [place] [address]([facility]) OUTPATIENT [id number] [facility] 10/19 Released w/o Limitations [facility]) [address] [place] [address]([facility]) OUTPATIENT [id number] SRIDHAR Kauffman 10/19 Released w/o Limitations [address] [place] [address]([facility] light Medicin e [facility]) [place] [address]([facility]) OUTPATIENT [id number] JENN Perry 11/19 Released w/o Limitations [facility] [place] [address](R eid_Fli ght_Med Team A) 8344R-439 AMDS Outpatient [id number] AMALIA MARSHALL 06/11 Discharge Disposition: Home or Self Care 8344R-4 39 AMDS 8344R-439 AMDS Between Visit [id number] 09/26 Discharge Disposition: Home or Self Care 8344R-4 39 AMDS 8344R-439 AMDS Between Visit [id number] 11/13 Discharge Disposition: Home or Self Care 8344R-4 39 AMDS 8344R-439 AMDS Between Visit [id number] 01/27 Discharge Disposition: Home or Self Care 8344R-4 39 AMDS 8344R-439 AMDS Between Visit [id number] 03/09 Discharge Disposition: Home or Self Care 8344R-4 39 AMDS Procedures Combined list of: 1) Procedures from Department of Veterans Affairs facilities [facility], not all [place] non-surgical procedures are included; 2) All procedures from the Department of Defense facilities. Procedure Procedure Type Code Date Perfomer Comments Jeremy hernández No data available for this section Ambulato ry Pharmacy Psychiatric Diagnostic Evaluation Comprehensive Examination Psychiatric Diagnostic Evaluation Comprehensive Examination [id number] 10/20/19 06 NOAM CLEMENT [facility] NONINVASIVE EAR OR PULSE OXIMETRY FOR OXYGEN SATURATION; SINGLE DETERMINATION 01/05/20 07 [facility] REMOVAL IMPACTED CERUMEN REQUIRING INSTRUMENTATION, UNILATERAL 04/17/19 12 [facility] PSYCHIATRIC DIAGNOSTIC INTERVIEW EXAMINATION 10/20/19 06 [facility] Social History Combined list of available smoking, tobacco, and other social history from Department of Defense and Veterans Affairs facilities. Social History Type Response Date Comment Sourc e Male 03/22/2022 Ambulatory Pha rmacy Sexual Orientation Ambula tory Pharmacy Gender identity Ambulator y Pharmacy This section is an empty soc ial history section. DoD Assessment and Plan Combined list of future [...] 10 mg PRN Atorvastatin 20mg Chronic Problems: ?J3DL-Tauexhzcy low back pain Hyperlipidemia SF 507: _ [...] is able to complete duties required by [facility]. No acute complaints.NO: Fly?waiver. Initial Waiver Date: Waiver Exp Date: . Test results reviewed: Audio: Audiogram H-1, no asymmetric hearing loss, no significant threshhold shift Optometry:Meets vision standards for: Near and distant visual acuity, IOP, Depth perception, Phorias EKG:?_ PHYSICAL EXAM: HEENT:?Normal Valsalva:?Normal Joints:?Normal Spine:Normal Skin:Normal Neuro:?Normal Lungs:?Normal Heart:?Normal Abdomen:?Normal Comments: Member has chronic condition and is currently DNIF. Discussion with cross-training to a non flyer [facility] ANNUAL PERIODIC HEALTH ASSESSMENT I. ROAD FREIGHT CONDUCTOR INFORMATION AND DEMOGRAPHICS (SMI) 1. Last Name: JOHN 2. First Name: MARCELINO 3. Middle Name: SAGAR 4. Assessment Date: 5. : 6. Age: 53 7. Gender: M 8. DoD ID Number: [id number] 9. Service Branch: [employer] 10. 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 Unit Name: Gagandeep AZUL 14. Duty Station/Location: [place] 15. UIC: [id number] 16. Is this your first Periodic Health Assessment (PHA)?: N 17. Are you enrolled in a secure messaging system with your health care provider?: 18. Current contact information: Preferred Method: Email 2 DSN: [id number] Day Time Phone: [phone] Night Time Phone: [phone] Email 1: [email or web address] Email 2: [email or web address] Address: [address] [place] [address]: [facility]: [place] Zip Code: [address] 19. Point of contact who can always reach you: Name: JANEY LOPEZ Phone 1: [phone] Phone 2: EMAIL: [email or web address] Address: [address] [place] [address]: [facility]: [place] Zip Code: [address] II. DEPLOYMENT INFORMATION (DEP) 1. [ 0 ] Total number of deployments in the PAST 5 YEARS 4. [ N ] Are you going to deploy within the NEXT 120 DAYS? III. 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 [ [...] easily startled? 6. d. [ No ] [place] numb or detached from others, activities, or your surroundings? 6. e. [ Not answered ] [place] guilt or unable to stop blaming yourself [...] like to schedule a visit with a carrot harvester, mental health care provider, or a community [...] [ TYLENOL, ADVIL ] What prescriptions or mqdj-nqw-evqaulg medications are you CURRENTLY taking for health [...] had a cholesterol check by a health body care manager within the PAST 5 YEARS? 13.a. In [...] discuss any health concerns? XI. SEPARATION AND CORRECTION 1. [ No ] Are you planning to separate or retire within the next year from Active Duty or [place] Duty (activated for greater than 30 continuous days) OR do you intend to file a claim for disability compensation with the Veterans Benefits Administration? PART B. RECORD REVIEW AND RECOMMENDATIONS I. RECORD REVIEWER INFORMATION 1. Last Name: MANINDER 2. First Name: NAHOMY 3. Middle Name: VÍCTOR 4. Service Branch: [employer] 5. Status: 6. 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 EMAIL: [email or web address] 8. Facility: [facility] 9. Unit: [facility] 10. Address: [address] [place] [address] 11. State: [facility]. Zip Code: [address] 13. Phone: [phone] 14. Date Record Review: II. MEDICAL SCREENING 1. [ ] Date of environmental studies faculty member's most recent PHA 2. [ 5 feet 10 inches Date: ] environmental studies faculty member's most recently documented height 3. [ 252 pounds Date: ] environmental studies faculty member's most recently documented weight 4. [ 131/87 Date: ] environmental studies faculty member's most recently documented blood pressure reading 5. [ No ] Does the environmental studies faculty member have a history of abnormal blood pressure since their last PHA? 6. [ Yes ] Does the environmental studies faculty member have a laboratory test of sickle cell trait documented in their permanent medical record? 7. [ No Cholesterol Test Documented ] What is the date of the environmental studies faculty member's most recently documented cholesterol test? 8. [ No Colon Cancer Screening Documented ] What is the date of the environmental studies faculty member's most recently documented colon cancer screening? 9. [ Motrin 800 mg, cyclobenzaprine 10 mg ] List of environmental studies faculty member's active medications listed in their permanent medical record 10. [ No ] Is there a discrepancy between the active medication record review and the environmental studies faculty member's self-reported list of medications? 11. [ Nerve root compression; low back pain ] List documented significant care the environmental studies faculty member has received since their last PHA from a provider OUTSIDE the Health System 12. [ No ] Is there a discrepancy between the environmental studies faculty member's list of OUTSIDE care (from OT5), and the OUTSIDE care found in the record? 13. [ No Inside Care Documented ] List documented significant care the environmental studies faculty member has received since their last PHA [...] medical documentation of allergies and compare with environmental studies faculty member responses. Document any discrepancies III. OCCUPATION-SPECIFIC EXAMINATIONS 1. [ ] When was the environmental studies faculty member's most recently documented special operational duty physical exam? IV. FAMILY HISTORY AND LIFESTYLE 1. [ Yes ] Does the OX1024 reflect the environmental studies faculty member's reported family history? VII. INDIVIDUAL MEDICAL READINESS 1. [ No ] Does the environmental studies faculty member have an Assignment Limitation Code C? 2. [ 7 Expires: ] Number of months in the past year the environmental studies faculty member has been in temporary duty status 3. [ Classification: 1 ] Most recently documented dental exam 4. [ Yes ] Is the environmental studies faculty member current on all required immunizations in the immunization tracking system? 5. [ Yes ] Is the environmental studies faculty member current with Service-specific requirements for glasses and gas mask inserts? 6. Does the environmental studies faculty member have the following laboratory tests documented [...] need to be forwarded to the Health Police Sergeant [employer]inct completing PART C: Tinnitus, high cholesterol, low [...] OLIVE 3. Middle Name: 4. Service Branch: [employer] 5. Status: Reservist 6. Title: Physician (DO STEPHIE) 7. EMAIL: [email or web address] 8. Facility: [address] [place] [address] 9. Unit: [address] [place] [address] 10. Address: [address] [place] [address] 11. State: [place] 12. Zip Code: [address] 13. 14. Date HCP Review initiated: 1. [...] Internal Medicine: Within 30 days 11. Comments: environmental studies faculty member reported they have not gambled in the past 12 months. 13. Supplemental services recommended/information provided: No supplemental services required Date MHA Certified: III. PERIODIC HEALTH ASSESSMENT (PHA) PROVIDER INFORMATION 1. Last Name: ALFONSO 2. First Name: OLIVE 3. Middle Name: 4. Service Branch: [employer] 5. Status: Reservist 6. Title: Physician (DO STEPHIE) 7. EMAIL: [email or web address] 8. Facility: [address] [place], [place] [address] 9. Unit: [address] [place] [address] 10. Address: [address] [place] [address] 11. State: [place] 12. Zip Code: [address] 13. 14. Date HCP Review initiated: IV. PERIODIC HEALTH ASSESSMENT PROVIDER RECOMMENDATIONS and REFERRALS 1. Provider concerns with this assessment: Issue or concerns identified after review of environmental studies faculty member responses, medical documentation, and Mental Health Assessment. 2. Summary of Provider's identified concerns: - Physical Health Recommended referal(s): Primary Care, Family Practice, Internal Medicine: Within 30 days Referral Time Comments: V. SUMMARY AND COMMENTS 1. Additional information summarizing findings during the environmental studies faculty member assessment: 2. Provider Comments: PCP follow up s/p back surgery and post physical therapy- member is under care . INDIVIDUAL MEDICAL READINESS DISPOSITION DETERMINATION DHARA: Not Ready DEN: Ready IMM: Ready LAB: Ready ME: Ready IMR Status: Partially Medically Ready VII. SERVICE MEDICAL DEPLOYABILITY EVALUATION INDICATED Based on your review of all documentation, is the environmental studies faculty member medically deployable without limitations? Reference Alea 6490.07 No (environmental studies faculty member currently has a medical condition that DOES require duty limitation(s) AND limits deployability) Date PHA Completed: END OF [id number] REPORT Impression: Meets?_?medical standards per YAMILA 48-123/MSD. Aeromedical Disposition: DNIF. DD 2992?signed. No AF469 changes based on this encounter. No change to deployability status 03/16/2024 Ambulatory Pharmacy Functional Status Combined list of recent functional and cognitive assessments recorded at Department of Defense and Veterans Affairs (VA).VA Functional [place] Measurement (FIM) Scale: 1 = Total Assistance (Subject = 0% +), 2 = Maximal Assistance (Subject = 25% +), 3 = Moderate Assistance (Subject = 50% +), 4 = Minimal Assistance (Subject = 75% +), 5 = Supervision, 6 = Modified [place] (Device), 7 = Complete [place] (Timely, Safely). Assessment Date/Time Source Assessment Type Assessment Skill Assessment Score Assessment Details No data available for this section
== END 2024-03-16 16:02 | disposition home or self-care (01) ==
PROVIDERS: PCP Nurse Practitioner Family; Referring Provider Nurse Practitioner Family; Visit Provider Physician Assistant
DX: M96.1 Postlaminectomy syndrome, not elsewhere classified (principal)
CPT/HCPCS: 99204

== ENCOUNTER 2024-06-04 09:39 | Outpatient (REF) | payer OTHER, SELFPAY ==
--- NOTE | ~2024-06-04 | XR_ITS ---
EXAMINATION: XR CERVICAL SPINE CLINICAL INFORMATION: CERVICALGIA, RADICULOPATHY COMPARISON: February 12, 2019. TECHNIQUE: 6 views of the cervical spine, inclusive of flexion and extension views, were obtained. FINDINGS: Multilevel marginal osteophyte formation more pronounced at C6-7. Bilateral neuroforamina narrowing secondary to osteophyte formation from C3-4 to C5-. Craniocervical junction is intact. No acute cortical disruption or gross malalignment No lytic or blastic lesions.. XR/XR cervical spine 4V IMPRESSION: Multilevel cervical spondylosis more conspicuous at C5-6 and C6-7 levels. Electronically signed by: Timothy Pham MD 06/04/2024 01:27 PM EDT
== END 2024-06-04 09:40 | disposition home or self-care (01) ==
LOC: HO.HMGCX 09:39
PROVIDERS: PCP Nurse Practitioner Family; Visit Provider Physician Assistant
DX: M54.2 Cervicalgia (principal); M54.12 Radiculopathy, cervical region
CPT/HCPCS: 72050

== ENCOUNTER → 2024-06-04 09:58 | Outpatient (BNV) | payer OTHER, SELFPAY | PROVIDERS: PCP Nurse Practitioner Family; Visit Provider Radiology Diagnostic Radiology | DX: M47.812 Spondylosis without myelopathy or radiculopathy, cervical region (principal) | CPT/HCPCS: 72050 ==

== ENCOUNTER 2024-06-27 09:13 | Outpatient (REF) | payer OTHER, SELFPAY ==
--- NOTE | ~2024-06-27 | XR_ITS ---
CLINICAL HISTORY: pain 3 views lumbar spine Comparison: N011/01/2021 08:57 AM EDT: CR Findings: Mild scoliosis. No acute fractures or dislocation. Multiple level degenerative disc and facet change. IMPRESSION: No acute findings. This document has been electronically signed by: Jamal iDaz MD on 06/27/2024 10:39:07
--- NOTE | ~2024-06-27 | XR_ITS ---
CLINICAL HISTORY: pain 4 view right knee Comparison: None Findings: No fractures or dislocations. No significant arthritic change or erosions. No joint effusion. No radiopaque foreign body. IMPRESSION: 1. No acute findings. This document has been electronically signed by: Jamal Diaz MD on 06/27/2024 10:35:19
--- OUTSIDE RECORDS SUMMARY | 2024-06-27 09:51 | XMS_ITS | Clinical Summary ---
Author Organization [facility] Address [address] [place] [address] Care Team Providers Care Rivet Thrower Name Role Phone Unavailable Primary Care Provider [...]
--- OUTSIDE RECORDS SUMMARY | 2024-06-27 09:51 | XMS_ITS | Continuity of Care Document ---
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 It does not include entries that [...] ORAL, 'S LAB, 500 ea. BOTTLE Active [id number] 2023 90 Pharmac y Data Transac [...] Site Reaction Lot Number CVX Code Drug Parlor Chaperone Status Comments Source influenza, injectable, quadrivalent- pf 2021 [id number] 150 GlaxGnarus SystemsithKli ne complet ed influenza , injectabl e, quadrival ent-pf 01/16/22 Given Ambulat ory Pharmac y tetanus, diphtheria, acellular pertu is 2021 [id number] sanofi pasteur complet ed tetanus, diphtheri a, acellular pertussis 01/16/22 Given Ambulat ory Pharmac y influenza, injectable, quadrivalent, preservative free 2020 BOGLILA, () Not Given influenza , injectabl e, quadrival ent, preservat malgorzata free [facility] COVID-19, mRNA, LNP-S, PF, 30 mcg/0.3 mL dose 2020 [place] [employer] (PFR) Not Given COVID-19, mRNA, LNP-S, PF, 30 mcg/0.3 mL dose DoD COVID Vaccine Pfizer 2020 [id number] PFIZER complet ed COVID Vaccine Pfizer 11/17/20 Given Ambulat ory Pharmac y typhoid Vi capsular polysaccharid e vac 2020 [id number] 101 sanofi pasteur complet ed typhoid Vi capsular polysacch aride vac 04/26/20 Given Ambulat ory Pharmac y influenza, injectable, quadrivalent- pf 2019 [id number] 150 Seqirus complet ed influenza , injectabl e, quadrival ent-pf 01/16/20 Given Ambulat ory Pharmac y influenza, injectable, quadrivalent- pf 2018 [id number] 150 Seqirus complet ed influenza , injectabl e, quadrival ent-pf 02/14/19 Given Ambulat ory Pharmac y Influenza, injectable, quadrivalent, preservative free 0 2018 [id number] 346 150 Seqirus (SEQ) complet ed Influenza , injectabl e, quadrival ent, preservat malgorzata free [facility] meningococcal A,C,Y,W-135 (MCV4P) 2018 [id number] 114 sanofi pasteur complet ed meningoco ccal A,C,Y,W-1 35 (MCV4P) 04/18/18 Given Ambulat ory Pharmac y typhoid Vi capsular polysaccharid e vac 2018 [id number] 101 sanofi pasteur complet ed typhoid Vi capsular polysacch aride vac 04/18/18 Given Ambulat ory Pharmac y influenza, injectable, quadrivalent- pf 2018 [id number] 150 Seqirus complet ed influenza , injectabl e, quadrival ent-pf 04/18/18 Given Ambulat ory Pharmac y typhoid Vi capsular polysaccharid e vaccine 6 2018 [id number] 101 Sanofi Pasteur (PMC) complet ed typhoid Vi capsular polysacch aride vaccine DoD meningococcal polysaccharid e (groups A, C, Y and W-135) diphtheria toxoid conjugate vaccine (MCV4P) 3 2018 [id number] 114 Sanofi Pasteur (PMC) complet ed meningoco ccal polysacch aride (groups A, C, Y and W-135) diphtheri a toxoid conjugate vaccine (MCV4P) DoD Influenza, injectable, quadrivalent, preservative free 11 2018 [id number] 150 Seqirus (SEQ) comple t ed Influenza , injectabl e, quadrival ent, preservat malgorzata free DoD typhoid Vi capsular polysaccharid e vac 2013 J1201 1 101 sanofi pasteur complet ed typhoid Vi capsular polysacch aride vac 03/21/13 Given Ambulat ory Pharmac y measles/mumps /rubella virus vaccine 2013 [id number] 03 Merck & Company Inc complet ed measles/m umps/rube lla virus vaccine 03/21/13 Given Ambulat ory Pharmac y measles, mumps and rubella virus vaccine 2 2013 [id number] 03 Merck (MSD) complet ed measles, mumps and rubella virus vaccine DoD typhoid Vi capsular polysaccharid e vaccine 5 2013 J1201 1 101 Sanofi Pasteur (PMC) complet ed typhoid Vi capsular polysacch aride vaccine DoD Influenza, injectable, MDCK-pf 2012 [id number] 153 Novartis Pharmaceutica complet ed Influenza , injectabl e, MDCK-pf 01/04/13 Given Ambulat ory Pharmac y Influenza, injectable, Madin [place] Canine Kidney, preservative free 0 2012 [id number] 153 Novartis Pharmaceutica l Izabella. (NOV) complet ed Influenza , injectabl e, Madin Brandi Canine Kidney, preservat malgorzata free DoD influenza, seasonal, injectable-pf 2011 [id number] 140 CSL Behring complet ed influenza , seasonal, injectabl e-pf 01/13/12 Given Ambulat ory Pharmac y tetanus, diphtheria, acellular pertu is 2011 [id number] 115 sanofi pasteur complet ed tetanus, diphtheri a, acellular pertussis 01/13/12 Given Ambulat ory Pharmac y tetanus toxoid, reduced diphtheria toxoid, and acellular pertu is vaccine, adsorbed 0 2011 [id number] 115 Sanofi Pasteur (PMC) complet ed tetanus toxoid, reduced diphtheri a toxoid, and acellular pertussis vaccine, adsorbed DoD Influenza, seasonal, injectable, preservative free 9 2011 [id number] 140 CS Crawford [employer] Inc. (CS) complet ed Influenza , seasonal, injectabl e, preservat malgorzata free DoD typhoid Vi capsular polysaccharid e vac 2010 V5914-6 101 sanofi pasteur complet ed typhoid Vi capsular polysacch aride vac 01/13/11 Given Ambulat ory Pharmac y influenza, seasonal, injectable-pf 2010 [id number] 140 CSL Behring complet ed influenza , seasonal, injectabl e-pf 01/13/11 Given Ambulat ory Pharmac y typhoid Vi capsular polysaccharid e vaccine 4 2010 R1566-0 101 Sanofi Pasteur ([facility]) complet ed typhoid Vi capsular polysacch aride vaccine DoD Influenza, seasonal, injectable, preservative free 8 2010 [id number] 140 CS [employer] (CS) complet ed Influenza , seasonal, injectabl e, preservat malgorzata free DoD meningococcal A,C,Y,W-135 (MCV4P) 2010 [id number] 114 sanofi pasteur complet ed meningoco ccal A,C,Y,W-1 35 (MCV4P) 03/19/10 Given Ambulat ory Pharmac y meningococcal polysaccharid e (groups A, C, Y and W-135) diphtheria toxoid conjugate vaccine (MCV4P) 1 2010 [id number] 114 Sanofi Pasteur (PMC) complet ed meningoco ccal polysacch aride (groups A, C, Y and W-135) diphtheri a toxoid conjugate vaccine (MCV4P) [facility] influenza virus vaccine,split 2009 [id number] 1B 15 CSL Behring complet ed influenza virus vaccine,s plit 12/22/09 Given Ambulat ory Pharmac y anthrax vaccine 2009 [id number] 24 Emergent Biosolutions complet ed anthrax vaccine 12/22/09 Given Ambulat ory Pharmac y influenza virus vaccine, split virus (incl. purified surface antigen)-reti red CODE 1 2009 [id number] 1B 15 Panl, Inc. (CSL) complet ed influenza virus vaccine, split virus (incl. purified surface antigen)- retired CODE DoD anthrax vaccine 1 2009 [id number] 24 [employer]gent [employer] [place] (MIP) complet ed anthrax vaccine DoD Novel influenza-H1N 1-09, injectable 2009 [id number] 1 127 Novartis Pharmaceutica ls complet ed Novel influenza -F1L7-76, injectabl e 04/03/09 Given Ambulat ory Pharmac y Novel influenza-H1N 1-09, injectable 1 2009 [id number] 1 127 Novartis Pharmaceutica l Izabella. (NOV) complet ed Novel influenza -C1N3-43, injectabl e DoD influenza virus vaccine, live 2008 [id number] 111 Sand Sign Inc comple t ed influenza virus vaccine, [...] live, attenuated, for intranasal use 1 2008 [id number] 111 BarBird, Inc. (MED) complet ed influenza virus vaccine, live, attenuate d, for intranasa l use DoD influenza virus vaccine,split 2007 [id number] 15 GlaxoSmithKli ne complet ed influenza virus vaccine,s plit 01/10/08 Given Ambulat ory Pharmac y influenza virus vaccine, split virus (incl. purified surface antigen)-reti red CODE 1 2007 [id number] 2AA 15 [employer] (SKB) complet ed influenza virus vaccine, split [...] virus vaccine DoD influenza virus vaccine,split 2005 [id number] 15 Unknown complet ed influenza virus vaccine,s plit 02/09/06 Given Ambulat ory Pharmac y influenza virus vaccine, split virus (incl. purified surface antigen)-reti red CODE 1 2005 [id number] 15 Other (OTH) complet ed influenza virus vaccine, split virus (incl. purified surface antigen)- retired CODE DoD tuberculin purified protein derivative 2005 [id number] 96 sanofi pasteur complet ed tuberculi n purified protein derivativ e 12/12/05 Given Ambulat ory Pharmac y poliovirus vaccine, inactivated 2005 [id number] 10 sanofi pasteur complet ed polioviru s vaccine, inactivat ed 12/12/05 Given Ambulat ory Pharmac y poliovirus vaccine, inactivated 1 2005 Y1068 10 Sanofi Pasteur ([facility]) complet ed polioviru s vaccine, inactivat ed DoD yellow fever vaccine 2005 [id number] 37 sanofi pasteur complet ed yellow fever vaccine 12/10/05 Given Ambulat ory Pharmac y yellow fever vaccine 1 2005 [id number] 37 Sanofi Pasteur (PMC) complet ed yellow [...] B vaccine 2 2005 [id number] 104 [facility] hepatitis A and hepatitis B vaccine DoD hepatitis A-hepatitis B vaccine 2005 [id number] 5AA 104 GlaxoSmithKli ne complet ed hepatitis A-hepatit is B vaccine 03/18/05 Given Ambulat ory Pharmac y typhoid vaccine, parenteral 2005 [id number] 41 sanofi pasteur complet ed typhoid vaccine, parentera l 03/18/05 Given Ambulat ory Pharmac y meningococcal polysaccharid e (MPSV4) 2005 [id number] 32 sanofi pasteur complet ed meningoco ccal polysacch aride (MPSV4) 03/18/05 Given Ambulat ory Pharmac y influenza virus vaccine,split 2005 [id number] 15 sanofi pasteur complet ed influenza virus vaccine,s plit 03/18/05 Given Ambulat ory Pharmac y tetanus-dipht h toxoids (Td) adult/adol 2005 [id number] 09 sanofi pasteur complet ed tetanus-d iphth [...] 2 Lf of diphtheria toxoid) 1 2005 [id number] 09 Sanofi Pasteur ([facility]) complet ed tetanus and diphtheri a toxoids, adsorbed, preservat malgorzata free, for adult use (2 Lf of tetanus toxoid and 2 Lf of diphtheri a toxoid) DoD influenza virus vaccine, split virus (incl. purified surface antigen)-reti red CODE 1 2005 [id number] 15 Sanofi Pasteur ([facility]) complet ed influenza virus vaccine, split virus (incl. purified surface antigen)- retired CODE DoD meningococcal polysaccharid e vaccine (MPSV4) 1 2005 [id number] 32 Sanofi Pasteur (PMC) complet ed meningoco ccal polysacch aride vaccine (MPSV4) DoD typhoid vaccine, parenteral, other than acetone-kille d, dried 1 2005 M8338-3 41 Sanofi Pasteur (PMC) complet ed typhoid vaccine, parentera l, other than acetone-k illed, dried DoD hepatitis A and hepatitis B vaccine 1 2005 [id number] 104 SmithKline (SKB) complet ed hepatitis A and hepatitis B vaccine DoD influenza virus vaccine,split 2004 [id number] 15 sanofi pasteur complet ed influenza virus vaccine,s plit 02/10/05 Given Ambulat ory Pharmac y influenza virus vaccine, split virus (incl. purified surface antigen)-reti red CODE 1 2004 [id number] 15 Sanofi Pasteur ([facility]) complet ed influenza virus vaccine, split virus [...] Prevention' s HIV diagnostic algorithm. Refer to [facility] Lab Guide for additional information : [email or web address]/ [email or web address] [email or web address] x Testing [...] ADM Date DC Date Status Disposition Source [address] [place] [address]([facility] Medicine [facility]) OUTPATIENT [id number] SANDRO Car 09/28 Released w/o Limitations [facility] Medical [facility](F light Medicin e Clinic) [address] [place] [address]([facility] Medicine [facility]) OUTPATIENT [id number] SANDRO Okeefe 10/11 Released w/o Limitations [address] [place] [address]([facility]) [address] [place] [address]([facility] Medicine [facility]) OUTPATIENT [id number] SANDRO Okeefe 10/16 Released w/o Limitations [address] [place] [address]([facility]) [address] [place] [address]([facility] Medicine [facility]) OUTPATIENT [id number] [facility] NOAM Banks 10/19 Released w/o Limitations [address] [place] [address]([facility]) [address] [place] [address]([facility] Medicine [facility]) [facility] [id number] [facility] 10/19 Released w/o Limitations [address] [place] [address]([facility] Medicin e Clinic) [place] [address](Christofer d_Flight_ Med Team A) [facility] [id number] [facility] Released w/o Limitations [facility] [place] [address](R eid_[facility]ly [facility] ght_Med Team A) 8344R-439 AMDS Between Visit [id number] 09/26 Discharge Disposition: Home or Self Care 8344R-4 39 AMDS 8344R-439 AMDS Between Visit [id number] 11/13 Discharge Disposition: Home or Self Care 8344R-4 39 AMDS 8344R-439 AMDS Between Visit [id number] 01/27 Discharge Disposition: Home or Self Care 8344R-4 39 AMDS 8344R-439 AMDS Between Visit [id number] 03/09 Discharge Disposition: Home or Self Care 8344R-4 39 AMDS 8344R-439 AMDS Between Visit [id number] 05/04 Discharge Disposition: Home or Self Care 8344R-4 39 AMDS Procedures Combined list of: 1) Procedures from Department of Veterans Affairs facilities [facility], not all [place] non-surgical procedures are included; 2) All procedures from the Department of Defense facilities. Procedure Procedure Type Code Date Perfomer Comments Sourc e NONINVASIVE EAR OR PULSE OXIMETRY FOR OXYGEN SATURATION; SINGLE DETERMINATION 01/05/20 07 [facility] REMOVAL IMPACTED CERUMEN REQUIRING INSTRUMENTATION, UNILATERAL 04/17/19 12 [facility] PSYCHIATRIC DIAGNOSTIC INTERVIEW EXAMINATION 10/20/19 06 [facility] Psychiatric Evaluation Comprehensive Examination Psychiatric Evaluation Comprehensive Examination [id number] 10/20/19 06 NOAM CLEMENT [facility] No data available for this section Ambulato ry Pharmacy Social History Combined list of available smoking, tobacco, and other social history from Department of Defense and Veterans Affairs facilities. Social History Type Response Date Comment Sourc e Sex Representation Male (finding) 03/22/2022 Un known Organization This section is an empty social history section. DoD Sexual Orientation Ambula tory [...] 10 mg PRN Atorvastatin 20mg Chronic Problems: ?Y9DF-Ttrnljrug low back pain Hyperlipidemia SF 507: _ [...] is able to complete duties required by [facility]. No acute complaints.NO: Fly?waiver. Initial [...] Discussion with cross-training to a non flyer [facility] ANNUAL PERIODIC HEALTH ASSESSMENT I. 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 Last Name: JOHN 2. First Name: MARCELINO 3. Middle Name: SAGAR 4. Assessment Date: 5. : 6. Age: 53 7. Gender: M 8. DoD ID Number: [id number] 9. Service Branch: [employer] 10. 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 Unit Name: Gagandeep AZUL 14. Duty Station/Location: [place] 15. UIC: [id number] 16. Is this your first Periodic Health Assessment (PHA)?: N 17. Are you enrolled in a secure messaging system with your health care provider?: 18. Current contact information: Preferred Method: Email 2 DSN: [id number] Day Time Phone: [phone] Night Time Phone: [phone] Email 1: [email or web address] Email 2: [email or web address] Address: [address] [place] [address]: [facility]: [place] Zip Code: [address] 19. Point of contact who can always reach you: Name: JANEY LOPEZ Phone 1: [phone] Phone 2: EMAIL: [email or web address] Address: [address] [place] [address]: [facility]: [place] Zip Code: [address] II. DEPLOYMENT INFORMATION (DEP) 1. [ 0 ] Total number of deployments in the PAST 5 YEARS 4. [ N ] Are you going to deploy within the NEXT 120 DAYS? III. 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 [...] easily startled? 6. d. [ No ] [place] numb or detached from others, activities, or your surroundings? 6. e. [ Not answered ] [place] guilt or unable to stop blaming yourself [...] like to schedule a visit with a residence supervisor, mental health care provider, or a community [...] [ TYLENOL, ADVIL ] What prescriptions or vsrj-prv-mberlfv medications are you CURRENTLY taking for health [...] had a cholesterol check by a health respite care provider within the PAST 5 YEARS? 13.a. In [...] the next year from Active Duty or [place] Duty (activated for greater than 30 continuous days) OR do you intend to file a claim for disability compensation with the Veterans Benefits Administration? PART B. RECORD REVIEW AND RECOMMENDATIONS I. RECORD REVIEWER INFORMATION 1. Last Name: MANINDER 2. First Name: NAHOMY 3. Middle Name: VÍCTOR 4. Service Branch: [facility] 5. Status: 6. 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 EMAIL: [email or web address] 8. Facility: [facility] 9. Unit: [facility] 10. Address: [address] [place] [address] 11. State: [place] 12. Zip Code: [address] 13. Phone: [phone] 14. Date Record Review: II. MEDICAL SCREENING 1. [ ] Date of meat team member's most recent PHA 2. [ 5 feet 10 inches Date: ] meat team member's most recently documented height 3. [ 252 pounds Date: ] meat team member's most recently documented weight 4. [ 131/87 Date: ] meat team member's most recently documented blood pressure reading 5. [ No ] Does the meat team member have a history of abnormal blood pressure since their last PHA? 6. [ Yes ] Does the meat team member have a laboratory test of sickle cell trait documented in their permanent medical record? 7. [ No Cholesterol Test Documented ] What is the date of the meat team member's most recently documented cholesterol test? 8. [ No Colon Cancer Screening Documented ] What is the date of the meat team member's most recently documented colon cancer screening? 9. [ Motrin 800 mg, cyclobenzaprine 10 mg ] List of meat team member's active medications listed in their permanent medical record 10. [ No ] Is there a discrepancy between the active medication record review and the meat team member's self-reported list of medications? 11. [ Nerve root compression; low back pain ] List documented significant care the meat team member has received since their last PHA from a provider OUTSIDE the Health System 12. [ No ] Is there a discrepancy between the meat team member's list of OUTSIDE care (from OT5), and the OUTSIDE care found in the record? 13. [ No Inside Care Documented ] List documented significant care the meat team member has received since their last PHA [...] medical documentation of allergies and compare with meat team member responses. Document any discrepancies III. OCCUPATION-SPECIFIC EXAMINATIONS 1. [ ] When was the meat team member's most recently documented special operational duty physical exam? IV. FAMILY HISTORY AND LIFESTYLE 1. [ Yes ] Does the [id number] reflect the meat team member's reported family history? VII. INDIVIDUAL MEDICAL READINESS 1. [ No ] Does the meat team member have an Assignment Limitation Code C? 2. [ 7 Expires: ] Number of months in the past year the meat team member has been in temporary duty status 3. [ Classification: 1 ] Most recently documented dental exam 4. [ Yes ] Is the meat team member current on all required immunizations in the immunization tracking system? 5. [ Yes ] Is the meat team member current with Service-specific requirements for glasses and gas mask inserts? 6. Does the meat team member have the following laboratory tests documented [...] need to be forwarded to the Health [employer] completing PART C: Tinnitus, high cholesterol, low [...] OLIVE 3. Middle Name: 4. Service Branch: [facility] 5. Status: Reservist 6. Title: Physician (, ) 7. EMAIL: [email or web address] 8. Facility: [address] [place] [address] 9. Unit: [address] [place] [address] 10. Address: [address] [place] [address] 11. State: [facility]. Zip Code: [address] 13. 14. Date HCP Review initiated: 1. [...] Internal Medicine: Within 30 days 11. Comments: meat team member reported they have not gambled in the past 12 months. 13. Supplemental services recommended/information provided: No supplemental services required Date MHA Certified: III. PERIODIC HEALTH ASSESSMENT (PHA) PROVIDER INFORMATION 1. Last Name: ALFONSO 2. First Name: OLIVE 3. Middle Name: 4. Service Branch: [facility] 5. Status: Reservist 6. Title: Physician (DO STEPHIE) 7. EMAIL: [email or web address] 8. Facility: [address] [place] [address] 9. Unit: [address] [place] [address] 10. Address: [address] [place] [address] 11. State: [place] 12. Zip Code: [address] 13. 14. Date HCP Review initiated: IV. PERIODIC HEALTH ASSESSMENT PROVIDER RECOMMENDATIONS and REFERRALS 1. Provider concerns with this assessment: Issue or concerns identified after review of meat team member responses, medical documentation, and Mental Health Assessment. 2. Summary of Provider's identified concerns: - Physical Health Recommended referal(s): Primary Care, Family Practice, Internal Medicine: Within 30 days Referral Time Comments: V. SUMMARY AND COMMENTS 1. Additional information summarizing findings during the meat team member assessment: 2. Provider Comments: PCP follow up s/p back surgery and post physical therapy- member is under care . INDIVIDUAL MEDICAL READINESS DISPOSITION DETERMINATION DHARA: Not Ready DEN: Ready IMM: Ready LAB: Ready ME: Ready IMR Status: Partially Medically Ready VII. SERVICE MEDICAL DEPLOYABILITY EVALUATION INDICATED Based on your review of all documentation, is the meat team member medically deployable without limitations? Reference Alea 6490.07 No (meat team member currently has a medical condition that DOES require duty limitation(s) AND limits deployability) Date PHA Completed: END OF [id number] REPORT Impression: Meets?_?medical standards per YAMILA 48-123/MSD. Aeromedical Disposition: DNIF. DD 2992?signed. No AF469 changes based on this encounter. No change to deployability status 06/27/2024 8344R-439 AMDS Functional Status Combined list of recent functional and cognitive assessments recorded at Department of Defense and Veterans Affairs (VA).VA Functional [place] Measurement (FIM) Scale: 1 = Total Assistance (Subject = 0% +), 2 = Maximal Assistance (Subject = 25% +), 3 = Moderate Assistance (Subject = 50% +), 4 = Minimal Assistance (Subject = 75% +), 5 = Supervision, 6 = Modified [place] (Device), 7 = Complete [place] (Timely, Safely). Assessment Date/Time Source Assessment Type Assessment Skill Assessment Score Assessment Details No data available for this section
== END 2024-06-27 09:14 | disposition home or self-care (01) ==
LOC: HO.HMGCX 09:13
PROVIDERS: PCP Nurse Practitioner Family; Visit Provider Physician Assistant Medical
DX: M25.561 Pain in right knee (principal); M54.50 Low back pain, unspecified; G89.29 Other chronic pain
CPT/HCPCS: 72110; 73564; 96372; 99212; J1885

== ENCOUNTER 2024-06-27 09:13 | Outpatient (AMB) | payer OTHER, SELFPAY ==
--- OUTSIDE RECORDS SUMMARY | 2024-06-27 09:15 | XMS_ITS | Clinical Summary ---
Author Organization [facility] Address [address] [place] [address] Care Team Providers Care Chemical Librarian Name Role Phone Unavailable Primary Care Provider Unavailabl e Social History Tobacco Use Types Packs/Day Years Used Date Smoking Tobacco: Never Assessed Sex and Gender Information Value Date Recorded Sex Assigned at Not on file Legal Sex Male 6:13 PM EDT Gender Identity Not on file Sexual Orientation Not on file Plan of Treatment Health Maintenance Due Date Last Done Comments Hepatitis C Screening 1968 DTaP/Tdap/Td (1 - Tdap) 1986 Hep B (1 of 3 - 19+ 3-dose series) 1987 Pneumococcal 50+ years (1 of 1 - PCV) 2018 Zoster (Shingrix) (1 of 2) 2018 COVID-19 Vaccine ( - 2023-2 5 season) 2023 Influenza (#1) 2023 HPV Vaccine Aged Out No longer eligi ble based on patient's age to complete this topic Hep A Aged Out No longer eligi ble based on patient's age to complete this topic Hib Aged Out No longer eligi ble based on patient's age to complete this topic Meningococcal ACWY Aged Out No longer eligible based on patient's age to complete this topic
--- OUTSIDE RECORDS SUMMARY | 2024-06-27 09:15 | XMS_ITS | Continuity of Care Document ---
Author Name [facility] Organization [facility] Care Team Providers Care Booker Name Role Phone [facility] Unavailable Unavailable Problems Combined list of problems from Department of Defense and Veterans [facility] facilities. It does not include entries that were removed or entered in error. Problem Status Onset Date Problem Type Date of Resolution Comme nts Source MOTION SICKNESS Inactive 09/28/2005 Condition Do D MOTION SICKNESS Active Condition DoD Medications Combined list of [...] ORAL, 'S LAB, 500 ea. BOTTLE Active [id number] 4 2023 90 Pharmac y Data Transac [...] Active 6 Pt states with certain doses Unknown Organizati on Immunizations Combined list of available immunizations from the Department of Defense and Veterans Affairs facilities. Immunization Series Date Given Administered By Site Reaction Lot Number CVX Code Drug Tour Manager Status Comments Source influenza, injectable, quadrivalent- pf 2021 [id number] GlaxPerpetual TechnologiesithKli ne complet ed influenza , injectabl e, quadrival ent-pf 01/16/22 Given Ambulat ory Pharmac y tetanus, diphtheria, acellular pertu is 2021 [id number] sanofi pasteur complet ed tetanus, diphtheri a, acellular pertussis 01/16/22 Given Ambulat ory Pharmac y influenza, injectable, quadrivalent, preservative free 2020 BOGLILA, () Not Given influenza , injectabl e, quadrival ent, preservat malgorzata free [facility] COVID-19, mRNA, LNP-S, PF, 30 mcg/0.3 mL dose 2020 [place] [employer] [place] (PFR) Not Given COVID-19, mRNA, LNP-S, PF, 30 mcg/0.3 mL dose DoD COVID Vaccine Pfizer 2020 [id number] PFIZER complet ed COVID Vaccine Pfizer 11/17/20 Given Ambulat ory Pharmac y typhoid Vi capsular polysaccharid e vac 2020 [id number] 101 sanofi pasteur complet ed typhoid Vi capsular polysacch aride vac 04/26/20 Given Ambulat ory Pharmac y influenza, injectable, quadrivalent- pf 2019 [id number] 150 Seqirus complet ed influenza , injectabl e, quadrival ent-pf 01/16/20 Given Ambulat ory Pharmac y influenza, injectable, quadrivalent- pf 2018 [id number] 150 Seqirus complet ed influenza , injectabl e, quadrival ent-pf 02/14/19 Given Ambulat ory Pharmac y Influenza, injectable, quadrivalent, preservative free 0 2018 [id number] 150 Seqirus (SEQ) complet ed Influenza , injectabl e, quadrival ent, preservat malgorzata free [facility] meningococcal A,C,Y,W-135 (MCV4P) 2018 [id number] 114 sanofi pasteur complet ed meningoco ccal A,C,Y,W-1 35 (MCV4P) 04/18/18 Given Ambulat ory Pharmac y typhoid Vi capsular polysaccharid e vac 2018 [id number] 101 sanofi pasteur complet ed typhoid Vi capsular polysacch aride vac 04/18/18 Given Ambulat ory Pharmac y influenza, injectable, quadrivalent- pf 2018 [id number] 150 Seqirus complet ed influenza , injectabl e, quadrival ent-pf 04/18/18 Given Ambulat ory Pharmac y typhoid Vi capsular polysaccharid e vaccine 6 2018 [id number] 101 Sanofi Pasteur (PMC) complet ed typhoid Vi capsular polysacch aride vaccine DoD meningococcal polysaccharid e (groups A, C, Y and W-135) diphtheria toxoid conjugate vaccine (MCV4P) 3 2018 [id number] 114 Sanofi Pasteur (PMC) complet ed meningoco ccal polysacch aride (groups A, C, Y and W-135) diphtheri a toxoid conjugate vaccine (MCV4P) DoD Influenza, injectable, quadrivalent, preservative free 11 2018 [id number] 150 Seqirus (SEQ) comple t ed Influenza , injectabl e, quadrival ent, preservat malgorzata free DoD typhoid Vi capsular polysaccharid e vac 2013 J1201 1 101 sanofi pasteur complet ed typhoid Vi capsular polysacch aride vac 03/21/13 Given Ambulat ory Pharmac y measles/mumps /rubella virus vaccine 2013 [id number] 03 Merck & Company Inc complet ed measles/m umps/rube lla virus vaccine 03/21/13 Given Ambulat ory Pharmac y measles, mumps and rubella virus vaccine 2 2013 [id number] 03 Merck (MSD) complet ed measles, mumps and rubella virus vaccine DoD typhoid Vi capsular polysaccharid e vaccine 5 2013 J1201 1 101 Sanofi Pasteur (PMC) complet ed typhoid Vi capsular polysacch aride vaccine DoD Influenza, injectable, MDCK-pf 2012 [id number] 153 Novartis Pharmaceutica complet ed Influenza , injectabl e, MDCK-pf 01/04/13 Given Ambulat ory Pharmac y Influenza, injectable, Madin Farrar Canine Kidney, preservative free 0 2012 [id number] 153 Novartis Pharmaceutica l Izabella. (NOV) complet ed Influenza , injectabl e, Madin Brandi Canine Kidney, preservat malgorzata free DoD influenza, seasonal, injectable-pf 2011 [id number] 140 CSL Behring complet ed influenza , seasonal, injectabl e-pf 01/13/12 Given Ambulat ory Pharmac y tetanus, diphtheria, acellular pertu is 2011 [id number] 115 sanofi pasteur complet ed tetanus, diphtheri a, acellular pertussis 01/13/12 Given Ambulat ory Pharmac y tetanus toxoid, reduced diphtheria toxoid, and acellular pertu is vaccine, adsorbed 0 2011 [id number] 115 Sanofi Pasteur (PMC) complet ed tetanus toxoid, reduced diphtheri a toxoid, and acellular pertussis vaccine, adsorbed DoD Influenza, seasonal, injectable, preservative free 9 2011 [id number] 140 CS [employer] Inc. (CS) complet ed Influenza , seasonal, injectabl e, preservat malgorzata free DoD typhoid Vi capsular polysaccharid e vac 2010 [id number] 101 sanofi pasteur complet ed typhoid Vi capsular polysacch aride vac 01/13/11 Given Ambulat ory Pharmac y influenza, seasonal, injectable-pf 2010 [id number] 1A 140 CSL Behring complet ed influenza , seasonal, injectabl e-pf 01/13/11 Given Ambulat ory Pharmac y typhoid Vi capsular polysaccharid e vaccine 4 2010 R6158-2 101 Sanofi Pasteur ([facility]) complet ed typhoid Vi capsular polysacch aride vaccine DoD Influenza, seasonal, injectable, preservative free 8 2010 [id number] 140 CS [employer]. (CS) complet ed Influenza , seasonal, injectabl e, preservat malgorzata free DoD meningococcal A,C,Y,W-135 (MCV4P) 2010 [id number] 114 sanofi pasteur complet ed meningoco ccal A,C,Y,W-1 35 (MCV4P) 03/19/10 Given Ambulat ory Pharmac y meningococcal polysaccharid e (groups A, C, Y and W-135) diphtheria toxoid conjugate vaccine (MCV4P) 1 2010 [id number] 114 Sanofi Pasteur (PMC) complet ed meningoco ccal polysacch aride (groups A, C, Y and W-135) diphtheri a toxoid conjugate vaccine (MCV4P) [facility] influenza virus vaccine,split 2009 [id number] 1B 15 CSL Behring complet ed influenza virus vaccine,s plit 12/22/09 Given Ambulat ory Pharmac y anthrax vaccine 2009 [id number] 24 Emergent Biosolutions complet ed anthrax vaccine 12/22/09 Given Ambulat ory Pharmac y influenza virus vaccine, split virus (incl. purified surface antigen)-reti red CODE 1 2009 [id number] 1B 15 ProThera Biologics, Inc. (CSL) complet ed influenza virus vaccine, split virus (incl. purified surface antigen)- retired CODE DoD anthrax vaccine 1 2009 [id number] 24 [employer] [place] (MIP) complet ed anthrax vaccine DoD Novel influenza-H1N 1-09, injectable 2009 [id number] 1 127 Novartis Pharmaceutica ls complet ed Novel influenza -D2R0-98, injectabl e 04/03/09 Given Ambulat ory Pharmac y Novel influenza-H1N 1-09, injectable 1 2009 [id number] 1 127 Novartis Pharmaceutica l Izabella. (NOV) complet ed Novel influenza -X2S4-76, injectabl e DoD influenza virus vaccine, live 2008 [id number] 111 [employer] comple t ed influenza virus vaccine, [...] live, attenuated, for intranasal use 1 2008 [id number] 111 Xtify Inc., Inc. (MED) complet ed influenza virus vaccine, live, attenuate d, for intranasa l use DoD influenza virus vaccine,split 2007 [id number] 15 GlaxoSmithKli ne complet ed influenza virus vaccine,s plit 01/10/08 Given Ambulat ory Pharmac y influenza virus vaccine, split virus (incl. purified surface antigen)-reti red CODE 1 2007 [id number] 2AA 15 [facility] (SKB) complet ed influenza virus vaccine, split [...] virus vaccine DoD influenza virus vaccine,split 2005 [id number] 15 Unknown complet ed influenza virus vaccine,s plit 02/09/06 Given Ambulat ory Pharmac y influenza virus vaccine, split virus (incl. purified surface antigen)-reti red CODE 1 2005 [id number] 15 Other (OTH) complet ed influenza virus vaccine, split virus (incl. purified surface antigen)- retired CODE DoD tuberculin purified protein derivative 2005 [id number] 96 sanofi pasteur complet ed tuberculi n purified protein derivativ e 12/12/05 Given Ambulat ory Pharmac y poliovirus vaccine, inactivated 2005 [id number] 10 sanofi pasteur complet ed polioviru s vaccine, inactivat ed 12/12/05 Given Ambulat ory Pharmac y poliovirus vaccine, inactivated 1 2005 [id number] 10 Sanofi Pasteur ([facility]) complet ed polioviru s vaccine, inactivat ed DoD yellow fever vaccine 2005 [id number] 37 sanofi pasteur complet ed yellow fever vaccine 12/10/05 Given Ambulat ory Pharmac y yellow fever vaccine 1 2005 [id number] 37 Sanofi Pasteur (PMC) complet ed yellow [...] B vaccine 2 2005 [id number] [facility] hepatitis A and hepatitis B vaccine DoD hepatitis A-hepatitis B vaccine 2005 [id number] 5AA 104 GlaxoSmithKli ne complet ed hepatitis A-hepatit is B vaccine 03/18/05 Given Ambulat ory Pharmac y typhoid vaccine, parenteral 2005 Y4285-8 41 sanofi pasteur complet ed typhoid vaccine, parentera l 03/18/05 Given Ambulat ory Pharmac y meningococcal polysaccharid e (MPSV4) 2005 [id number] 32 sanofi pasteur complet ed meningoco ccal polysacch aride (MPSV4) 03/18/05 Given Ambulat ory Pharmac y influenza virus vaccine,split 2005 [id number] 15 sanofi pasteur complet ed influenza virus vaccine,s plit 03/18/05 Given Ambulat ory Pharmac y tetanus-dipht h toxoids (Td) adult/adol 2005 [id number] 09 sanofi pasteur complet ed tetanus-d iphth [...] 2 Lf of diphtheria toxoid) 1 2005 [id number] 09 Sanofi Pasteur ([facility]) complet ed tetanus and diphtheri a toxoids, adsorbed, preservat malgorzata free, for adult use (2 Lf of tetanus toxoid and 2 Lf of diphtheri a toxoid) DoD influenza virus vaccine, split virus (incl. purified surface antigen)-reti red CODE 1 2005 [id number] 15 Sanofi Pasteur ([facility]) complet ed influenza virus vaccine, split virus (incl. purified surface antigen)- retired CODE DoD meningococcal polysaccharid e vaccine (MPSV4) 1 2005 [id number] 32 Sanofi Pasteur (PMC) complet ed meningoco ccal polysacch aride vaccine (MPSV4) DoD typhoid vaccine, parenteral, other than acetone-kille d, dried 1 2005 D9821-8 41 Sanofi Pasteur (PMC) complet ed typhoid vaccine, parentera l, other than acetone-k illed, dried DoD hepatitis A and hepatitis B vaccine 1 2005 [id number] 5AA 104 SmithKline (SKB) complet ed hepatitis A and hepatitis B vaccine DoD influenza virus vaccine,split 2004 [id number] 15 sanofi pasteur complet ed influenza virus vaccine,s plit 02/10/05 Given Ambulat ory Pharmac y influenza virus vaccine, split virus (incl. purified surface antigen)-reti red CODE 1 2004 [id number] 15 Sanofi Pasteur ([facility]) complet ed influenza virus vaccine, split virus (incl. purified surface antigen)- retired CODE DoD Results Combined list of recent chemistry, hematology and other laboratory results from Department of Defense and Veterans Affairs, ranging from 15 months to all on record, depending upon the facility. Order Name Results Value Reference Range Date Interpretation Specimen Comments Source Infectiou s Disease HIV-1/O/2 Non-Reac tive 1 (08/13/22 10:45 [...] Prevention' s HIV diagnostic algorithm. Refer to [facility] Lab Guide for additional information : [email or web address] x Testing performed by Joel everett [facility] Miscellan eous Sendouts Repository Sample Received (08/13/22 10:45 AM) 08/13 N [facility] Encounters Combined list of: 1) Encounters from Department of Veterans Affairs facilities going backup to the last 18 months, not all VA inpatient encounters are included; 2) Encounters from the Department of Defense facilities going backup to 280 months. Location Location Details Encounter Type Encounter Number Reason For Visit Attending Provider ADM Date DC Date Status Disposition Source [address] [place] [address]([facility]) OUTPATIENT [id number] SANDRO Car 09/28 Released w/o Limitations [facility] [address] [place] [address]([facility]) OUTPATIENT [id number] SANDRO Okeefe 10/11 Released w/o Limitations [address] [place] [address]([facility]) [address] [place] [address]([facility]) OUTPATIENT [id number] SANDRO Okeefe 10/16 Released w/o Limitations [address] [place] [address]([facility]) [address] [place] [address]([facility]) OUTPATIENT [id number] [facility] NOAM Banks 10/19 Released w/o Limitations [address] [place] [address]([facility]) [address] [place] [address]([facility]) [facility] [id number] [facility] Released w/o Limitations [address] [place] [address]([facility]) [place] [address]([facility]er [facility]_ Med Team A) [facility] [id number] [facility]ased w/o Limitations [facility] [place] [address]([facility] ght_Med Team A) 8344R-439 AMDS Between Visit [id number] 09/26 Discharge Disposition: Home or Self Care 8344R-4 39 AMDS 8344R-439 AMDS Between Visit [id number] 11/13 Discharge Disposition: Home or Self Care 8344R-4 39 AMDS 8344R-439 AMDS Between Visit [id number] 01/27 Discharge Disposition: Home or Self Care 8344R-4 39 AMDS 8344R-439 AMDS Between Visit [id number] 03/09 Discharge Disposition: Home or Self Care 8344R-4 39 AMDS 8344R-439 AMDS Between Visit [id number] 05/04 Discharge Disposition: Home or Self Care 8344R-4 39 AMDS Procedures Combined list of: 1) Procedures from Department of Veterans Affairs facilities going [facility], not all [place] non-surgical procedures are included; 2) All procedures from the Department of Defense facilities. Procedure Procedure Type Code Date Perfomer Comments Sourc e No data available for this section Ambulato ry Pharmacy NONINVASIVE EAR OR PULSE OXIMETRY FOR OXYGEN SATURATION; SINGLE DETERMINATION 01/05/20 07 [facility] REMOVAL IMPACTED CERUMEN REQUIRING INSTRUMENTATION, UNILATERAL 04/17/19 12 [facility] PSYCHIATRIC DIAGNOSTIC INTERVIEW EXAMINATION 10/20/19 06 [facility] Psychiatric Evaluation Comprehensive Examination Psychiatric Evaluation Comprehensive Examination [id number] 10/20/19 06 NOAM CLEMENT [facility] Social History Combined list of available smoking, tobacco, and other social history from Department of Defense and Veterans Affairs facilities. Social History Type Response Date Comment Sourc e Sex Representation Male (finding) 03/22/2022 Un known Organization Sexual Orientation Ambula tory Pharmacy Gender identity Ambulator y Pharmacy This section is an empty social history section. [facility] Assessment and Plan Combined list of future [...] 10 mg PRN Atorvastatin 20mg Chronic Problems: ?Y9CM-Othraushh low back pain Hyperlipidemia SF 507: _ [...] is able to complete duties required by [facility]. No acute complaints.NO: Fly?waiver. Initial Waiver Date: Waiver Exp Date: JUSTICE?taryn. Test results reviewed: Audio: Audiogram H-1, no asymmetric hearing loss, no significant threshhold shift Optometry:Meets vision standards for: Near and distant visual acuity, IOP, Depth perception, Phorias EKG:?_ PHYSICAL EXAM: HEENT:?Normal Valsalva:?Normal Joints:?Normal Spine:Normal Skin:Normal Neuro:?Normal Lungs:?Normal Heart:?Normal Abdomen:?Normal Comments: Member has chronic condition and is currently DNIF. Discussion with cross-training to a non flyer [facility] ANNUAL PERIODIC HEALTH ASSESSMENT I. POLITICAL GEOGRAPHER INFORMATION AND DEMOGRAPHICS (SMI) 1. Last Name: JOHN 2. First Name: MARCELINO 3. Middle Name: SAGAR 4. Assessment Date: 5. : 6. Age: 53 7. Gender: M 8. DoD ID Number: [id number] 9. Service Branch: [employer] 10. 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 Unit Name: Gagandeep ZAUL 14. Duty Station/Location: [place] 15. UIC: [id number] 16. Is this your first Periodic Health Assessment (PHA)?: N 17. Are you enrolled in a secure messaging system with your health care provider?: 18. Current contact information: Preferred Method: Email 2 DSN: [id number] Day Time Phone: [phone] Night Time Phone: [phone] Email 1: [email or web address] Email 2: [email or web address] Address: [address] [place] [address]: [facility]: [place] Zip Code: [address] 19. Point of contact who can always reach you: Name: JANEY LOPEZ Phone 1: [phone] Phone 2: EMAIL: [email or web address] Address: [address] [place] [address]: [facility]: [place] Zip Code: [address] II. DEPLOYMENT INFORMATION (DEP) 1. [ 0 ] Total number of deployments in the PAST 5 YEARS 4. [ N ] Are you going to deploy within the NEXT 120 DAYS? III. 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 [ [...] easily startled? 6. d. [ No ] [place] numb or detached from others, activities, or your surroundings? 6. e. [ Not answered ] [place] guilt or unable to stop blaming yourself [...] like to schedule a visit with a sec accountant, mental health care provider, or a community [...] [ TYLENOL, ADVIL ] What prescriptions or fwaw-uez-dumbrzv medications are you CURRENTLY taking for health [...] had a cholesterol check by a health manager managed care within the PAST 5 YEARS? 13.a. In [...] discuss any health concerns? XI. SEPARATION AND CUSTODIAL 1. [ No ] Are you planning to separate or retire within the next year from Active Duty or [place] Duty (activated for greater than 30 continuous days) OR do you intend to file a claim for disability compensation with the Veterans Benefits Administration? PART B. RECORD REVIEW AND RECOMMENDATIONS I. RECORD REVIEWER INFORMATION 1. Last Name: MANINDER 2. First Name: NAHOMY 3. Middle Name: VÍCTOR 4. Service Branch: [employer] 5. Status: 6. 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 EMAIL: [email or web address] 8. Facility: [facility] [place] [facility] 9. Unit: [facility] [place] [facility] 10. Address: [address] [place] [address] 11. State: [place] 12. Zip Code: [address] 13. Phone: [phone] 14. Date Record Review: II. MEDICAL SCREENING 1. [ ] Date of human geography faculty member's most recent PHA 2. [ 5 feet 10 inches Date: ] human geography faculty member's most recently documented height 3. [ 252 pounds Date: ] human geography faculty member's most recently documented weight 4. [ 131/87 Date: ] human geography faculty member's most recently documented blood pressure reading 5. [ No ] Does the human geography faculty member have a history of abnormal blood pressure since their last PHA? 6. [ Yes ] Does the human geography faculty member have a laboratory test of sickle cell trait documented in their permanent medical record? 7. [ No Cholesterol Test Documented ] What is the date of the human geography faculty member's most recently documented cholesterol test? 8. [ No Colon Cancer Screening Documented ] What is the date of the human geography faculty member's most recently documented colon cancer screening? 9. [ Motrin 800 mg, cyclobenzaprine 10 mg ] List of human geography faculty member's active medications listed in their permanent medical record 10. [ No ] Is there a discrepancy between the active medication record review and the human geography faculty member's self-reported list of medications? 11. [ Nerve root compression; low back pain ] List documented significant care the human geography faculty member has received since their last PHA from a provider OUTSIDE the Health System 12. [ No ] Is there a discrepancy between the human geography faculty member's list of OUTSIDE care (from OT5), and the OUTSIDE care found in the record? 13. [ No Inside Care Documented ] List documented significant care the human geography faculty member has received since their last [...] medical documentation of allergies and compare with human geography faculty member responses. Document any discrepancies III. OCCUPATION-SPECIFIC EXAMINATIONS 1. [ ] When was the human geography faculty member's most recently documented special operational duty physical exam? IV. FAMILY HISTORY AND LIFESTYLE 1. [ Yes ] Does the [id number] reflect the human geography faculty member's reported family history? VII. INDIVIDUAL MEDICAL READINESS 1. [ No ] Does the human geography faculty member have an Assignment Limitation Code C? 2. [ 7 Expires: ] Number of months in the past year the human geography faculty member has been in temporary duty status 3. [ Classification: 1 ] Most recently documented dental exam 4. [ Yes ] Is the human geography faculty member current on all required immunizations in the immunization tracking system? 5. [ Yes ] Is the human geography faculty member current with Service-specific requirements for glasses and gas mask inserts? 6. Does the human geography faculty member have the following laboratory tests [...] need to be forwarded to the Health Metals Sales Representative completing PART C: Tinnitus, high cholesterol, low back pain. Pain 5/10. Has current AF 469. Has felt impaired due to sleepiness during past 2 wks. Negative depression screening. No major stressors, gambling, or alcohol concerns. Takes individual vitamins/minerals daily. Inadequate diet and exercise. Date Record Review Completed: PART C. HEALTH CARE PROVIDER I. MENTAL HEALTH ASSESSMENT (MHA) PROVIDER INFORMATION 1. Last Name: ALFONSO 2. First Name: OLIVE 3. Middle Name: 4. Service Branch: [employer] 5. Status: Reservist 6. Title: Physician (, ) 7. EMAIL: [email or web address] 8. Facility: [address] [place] [address] 9. Unit: [address] [place] [address] 10. Address: [address] [place] [address] 11. State: [facility]. Zip Code: [address] 13. 14. Date HCP Review initiated: 1. [...] Internal Medicine: Within 30 days 11. Comments: human geography faculty member reported they have not gambled in the past 12 months. 13. Supplemental services recommended/information provided: No supplemental services required Date MHA Certified: III. PERIODIC HEALTH ASSESSMENT (PHA) PROVIDER INFORMATION 1. Last Name: ALFONSO 2. First Name: OLIVE 3. Middle Name: 4. Service Branch: [employer] 5. Status: Reservist 6. Title: Physician (DO STEPHIE) 7. EMAIL: [email or web address] 8. Facility: [address] [place] [address] 9. Unit: [address] [place] [address] 10. Address: [address] [place] [address] 11. State: [place] 12. Zip Code: [address] 13. 14. Date HCP Review initiated: IV. PERIODIC HEALTH ASSESSMENT PROVIDER RECOMMENDATIONS and REFERRALS 1. Provider concerns with this assessment: Issue or concerns identified after review of human geography faculty member responses, medical documentation, and Mental Health Assessment. 2. Summary of Provider's identified concerns: - Physical Health Recommended referal(s): Primary Care, Family Practice, Internal Medicine: Within 30 days Referral Time Comments: V. SUMMARY AND COMMENTS 1. Additional information summarizing findings during the human geography faculty member assessment: 2. Provider Comments: PCP follow up s/p back surgery and post physical therapy- member is under care . INDIVIDUAL MEDICAL READINESS DISPOSITION DETERMINATION DHARA: Not Ready DEN: Ready IMM: Ready LAB: Ready ME: Ready IMR Status: Partially Medically Ready VII. SERVICE MEDICAL DEPLOYABILITY EVALUATION INDICATED Based on your review of all documentation, is the human geography faculty member medically deployable without limitations? Reference Alea 6490.07 No (human geography faculty member currently has a medical condition that DOES require duty limitation(s) AND limits deployability) Date PHA Completed: END OF [id number] REPORT Impression: Meets?_?medical standards per YAMILA 48-123/MSD. Aeromedical Disposition: DNIF. DD 2992?signed. No AF469 changes based on this encounter. No change to deployability status 06/27/2024 [id number] AMDS Functional Status Combined list of recent functional and cognitive assessments recorded at [employer] [facility] [employer] ([facility]VA Functional Sharkey Measurement (FIM) Scale: 1 = Total Assistance (Subject = 0% +), 2 = Maximal Assistance (Subject = 25% +), 3 = Moderate Assistance (Subject = 50% +), 4 = Minimal Assistance (Subject = 75% +), 5 = Supervision, 6 = Modified Sharkey (Device), 7 = Complete Sharkey (Timely, Safely). Assessment Date/Time Source Assessment Type Assessment Skill Assessment Score Assessment Details No data available for this section
[2024-06-27 09:18] VITALS: BP 124/80; PULSE 57; RESP 15; TEMP 36.5; O2SAT 97; BMI 38.3
--- NOTE | 2024-06-27 09:18 | AM.OFFWIN_ITS ---
Intake Vital Signs 06/27/24 09:18 Height 5 ft 10 in Weight 267 lb BMI 38.3 BP 124/80 Blood Pressure Location Lt brachial Position Sitting Respiration 15 Pulse 57 Pulse Source Pulse Oximeter Temp 97.7 F Temp Source Oral Pulse Oximetry (%) 97 Oxygen Delivery Method Room Air Intake Visit Reasons: EP-Lt knee & LBP Intake Note: Pt is here today c/o Rt knee pain and lower back pain hx of surgery of lower pain Patient Tobacco Use Status: Never used Tobacco Allergies amoxicillin [AMOXICILLIN] Allergy (Intermediate, Verified 07/01/24 15:41) HIVES penicillin V Allergy (Unknown, Verified 07/01/24 15:41) hives penicillin Allergy (Unknown, Uncoded 06/27/24 09:19) Hives HPI EP-Lt knee & LBP HPI Details Patient is a 54-year-old male who comes to the walk-in clinic complaining of acute onset of right knee pain for the last few weeks, progressively worsening. 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 He has history of degenerative changes to multiple areas of the body, including his low back, which is also flared up recently. He has been able to continue with his activities of daily living, including his job, however it is getting more and more difficult to do this due to the pain. He is taking voqx-irp-ickontc anti-inflammatories with limited relief. He denies weakness, numbness or tingling. [facility] Medical History Ankle injury Knee pain Cervical muscle strain Otitis media, right Low back pain radiating to lower extremity Disc degeneration, lumbar Chronic pain syndrome Radiculopathy, lumbar region Sinusitis Dyslipidemia Bilateral hip pain SI (sacroiliac) joint dysfunction Post-COVID chronic cough Elevated cholesterol Acute middle ear effusion Surgical History H/O radiofrequency ablation (RFA) of nerve of lumbar spine History of esophagogastroduodenoscopy (EGD) Hx of colonoscopy History of lumbar laminectomy S/P lumbar laminectomy Hx of tonsillectomy H/O shoulder surgery Family History Other H/O shoulder surgery History of lumbar laminectomy Hx of tonsillectomy Social History Patient Tobacco Use Status: Never used Tobacco e-Cigarette/Vaping Use: Never Used Second Hand Smoke Exposure: No service: Yes Current occupational status: employed Current occupational exposures/hazards: Yes Cognitive needs: No Hearing needs: No Vision needs: No Review of Systems Const All systems reviewed & are unremarkable except as noted in HPI and below Physical Exam Vital Signs: Last Vital Signs Temp 97.7 F 06/27/24 09:18 Pulse 57 06/27/24 09:18 Resp 15 06/27/24 09:18 BP 124/80 06/27/24 09:18 Pulse Ox 97 06/27/24 09:18 Oxygen Delivery Method Room Air 06/27/24 09:18 BMI result Body Mass Index 38.3 Back/Spine/Pelvis Thoracic/Lumbar Spine: No thoracic and lumbar spine normal to inspection, Thoracic/lumbar spine scar(s), bend over test abnormal, No kyphosis, pain with thoraco-lumbar ROM, thoraco-lumbar ROM limited and lumbar spinal tenderness (Lumbosacral band area also, bilateral paraspinals) Extrem Other: Full range of motion and decent strength to the right knee, with no gross edema, erythema or warmth. No laxity with varus or valgus stress, and negative anterior and posterior drawer tests. He does have some tenderness to palpation to the medial joint line, and just adjacent to the patella medially. He is able to tolerate load bearing on that leg. There is no palpable cords or masses to the right calf muscle also, and the extremity is neurovascularly intact distally Office Meds ketorolac 60 mg/2 mL intramuscular solution Performing Provider: Yeni Childress PA-C Performing Location: [facility] [place] [facility] Administered by: KARSTEN Amador on 07/01/24 16:51 Dose Route Admin Location Dispensed Lot Number Expiration Date NDC [employer] 60 mg IM Right buttock 2 mL [id number] 10/08/24 88753-482-93 [employer] Comments: No complications with injection Results Reviewed Results Reviewed: Plain film four view x-rays of the right knee reveal [id number] degenerative changes, with no acute osseous findings. Assessment & Plan Assessment & Plan (1) Knee pain, right: Code(s): M25.561 - Pain in right knee Qualifiers: Chronicity: chronic Qualified Code(s): M25.561 - Pain in right knee; G89.29 - Other chronic pain Plan: Patient is a 54-year-old male with apparent symptomatic degenerative joint disease to the right knee, which might include degenerative meniscal injury. No current signs or symptoms suggestive of septic joint. He denies GI bleed or bleeding risk, cardiac issues, high blood pressure or other contraindications for Toradol. He was given an IM injection of 60 mg of Toradol to the right upper quadrant of his right buttock, with no complications. I wrote him for indomethacin for home use, as he is not finding relief with his diclofenac, or even with a few days of taking the dexamethasone that he had left over from a prior script. 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 We discussed that he might require physical therapy or an MRI for further evaluation and management, and he plans to follow up as soon as possible for this, with his primary care or an orthopedist. He might also be a candidate for a steroid injection if his pain is not being managed with the indomethacin. He knows to follow up emergently if the joint becomes red, warm and/or grossly swollen, or if he develops associated symptoms of infection. Orders: Orders AMB Ketorolac Injection 06/27/24 Yeni Childress PA-C M46.1 - Sacroiliitis, not elsewhere classified, M51.26 - Other intervertebral disc displacement, lumbar region, M53.3 - Sacrococcygeal disorders, not elsewhere classified, M96.1 - Postlaminectomy syndrome, not elsewhere classified XR knee RT 4V 06/27/24 KARSTEN Amador M25.561 - Pain in right knee XR lumbar spine 4V min 06/27/24 KARSTEN Amador M54.50 - Low back pain, unspecified Medications: New indomethacin administer with food or milk, do not take along with other anti- inflammatories, maximum dose is 200 mg per day. 25 mg PO TID PRN 40 caps 0RF Severe arthritis pain KARSTEN Amador Coding Level of Care Code Est Pt Level 4 (50272) Diagnoses Chronic pain of right knee M25.561; G89.29 Chronicity: chronic
== END 2024-06-27 10:55 | disposition home or self-care (01) ==
PROVIDERS: PCP Nurse Practitioner Family; Visit Provider Physician Assistant Medical
DX: M53.3 Sacrococcygeal disorders, not elsewhere classified (principal); M51.26 Other intervertebral disc displacement, lumbar region; M96.1 Postlaminectomy syndrome, not elsewhere classified; M46.1 Sacroiliitis, not elsewhere classified; M25.561 Pain in right knee; G89.29 Other chronic pain

== ENCOUNTER → 2024-06-27 09:57 | Outpatient (BNV) | payer OTHER, SELFPAY | PROVIDERS: PCP Nurse Practitioner Family; Visit Provider Specialist | DX: M54.50 Low back pain, unspecified (principal); M25.561 Pain in right knee | CPT/HCPCS: 72110; 73564 ==

== ENCOUNTER 2024-07-01 15:34 | Outpatient (AMB) | payer OTHER, SELFPAY ==
[2024-07-01 15:39] VITALS: BP 130/90; PULSE 63; O2SAT 97
--- NOTE | 2024-07-01 15:39 | AM.OFFWIN_ITS ---
Intake Vital Signs 07/01/24 15:39 Weight 270 lb BP 130/90 H Blood Pressure Location Rt brachial Position Sitting Pulse 63 Pulse Source Pulse Oximeter Pulse Oximetry (%) 97 Oxygen Delivery Method Room Air Intake Visit Reasons: EP Rt knee pain Intake Note: Patient here for severe right knee pain. Patient Tobacco Use Status: Never used Tobacco Allergies amoxicillin [AMOXICILLIN] Allergy (Intermediate, Verified 07/01/24 15:41) HIVES penicillin V Allergy (Unknown, Verified 07/01/24 15:41) hives penicillin Allergy (Unknown, Uncoded 06/27/24 09:19) Hives Do you need a note to return to daycare/school/sports/work: No HPI HPI Comments History of Present Illness Details He presents to office with R knee pain Ongoing x 1 month He came to on Saturday and gave shot of toradol and indomethacin He had xray completed lumbar spine and R knee; He said 1 month ago he missed a step and maybe thought knee and back pain were the initial cause of it 11/18 R knee pain medial aspect experienc ed with stairs No pain free episodes No orthopedic seen for this issue Trying brace and used the other medicine without relief PCP abel Huerta in practice No L knee pain Chronic back pain unchanged; no urine incontinence or urine complaints He said chronic numbness/tingling in legs bilaterally; ongoing over 2 years No hx of gout before; denies join redness/heat. No fever or chills PFSH Medical History Ankle injury Knee pain Cervical muscle strain Otitis media, right Low back pain radiating to lower extremity Disc degeneration, lumbar Chronic pain syndrome Radiculopathy, lumbar region Sinusitis Dyslipidemia Bilateral hip pain SI (sacroiliac) joint dysfunction Post-COVID chronic cough Elevated cholesterol Acute middle ear effusion Surgical History H/O radiofrequency ablation (RFA) of nerve of lumbar spine History of esophagogastroduodenoscopy (EGD) Hx of colonoscopy History of lumbar laminectomy S/P lumbar laminectomy Hx of tonsillectomy H/O shoulder surgery Family History Other H/O shoulder surgery History of lumbar laminectomy Hx of tonsillectomy Social History Patient Tobacco Use Status: Never used Tobacco e-Cigarette/Vaping Use: Never Used Second Hand Smoke Exposure: No service: Yes Current occupational status: employed Current occupational exposures/hazards: Yes Cognitive needs: No Hearing needs: No Vision needs: No Review of Systems Const Denies chills and Denies fever(s) Musc Reports back pain, Reports arthralgias, Reports joint swelling, Reports limited range of motion and Reports tingling (chronic) Skin/Breast Denies rash Neuro Reports tingling (chronic) Physical Exam Vital Signs: Last Vital Signs Pulse 63 07/01/24 15:39 BP 130/90 H 07/01/24 15:39 Pulse Ox 97 07/01/24 15:39 Oxygen Delivery Method Room Air 07/01/24 15:39 General: Non-toxic, NAD. Speaking full sentences. Skin: Warm dry throughout. No visualized R knee edema, erythema ecchymosis or warmth to palpation of joint. Legs symmetrical bilaterally Eye: EOMI Respiratory: CTA bilaterally. No wheezes, rales or rhonchi Cardiac: RRR. No murmur. No calf tenderness or pedal edema RLE MSK: Pain with flexion/extension R knee. Pain to palpation R medial joint compartment. No patellar, lateral joint, proximal fibula or tibial plateau ttp. Neurology: Alert. No aphasia or facial droop. Psych: Good mood and affect Assessment & Plan Assessment & Plan (1) Knee meniscus pain: Code(s): M25.569 - Pain in unspecified knee Qualifiers: Laterality: right Qualified Code(s): M25.561 - Pain in right knee Plan: Patient seen and evaluated. Xrays completed over weekend without abnormality; results reviewed D/C indomethacin Prednisone (no alcohol or nsaids. Take with food)- he has had in past and tolerared well Tramadol for severe pain at night (lethargy. No alcohol or driving) Tylenol moderate pain Ortho referral sent for imaging and eval Patient gave verbal understanding and had no additional questions or concerns at time of discharge All questions answered Orders: Referrals Orthopedics Referral M25.569 - Pain in unspecified knee Medications: New prednisone 40 mg (2 x 20 mg) PO DAILY 10 tabs 0RF tramadol 25 mg PO Q6H PRN 10 tabs 0RF pain Coding Level of Care Code Est Pt Level 3 (21281) Diagnoses Pain of meniscus of right knee M25.561 Laterality: right
--- OUTSIDE RECORDS SUMMARY | 2024-07-01 18:11 | XMS_ITS | Clinical Summary ---
Author Organization [facility] Address [address] [place] [address] Care Team Providers Care Gm Name Role Phone Unavailable Primary Care Provider [...]
--- OUTSIDE RECORDS SUMMARY | 2024-07-01 18:11 | XMS_ITS | Continuity of Care Document ---
Author Name [facility] Organization [facility] Care Team Providers Care Mutual Fund Accountant Name Role Phone [facility] Unavailable Unavailable Problems Combined list of problems from Department of Defense and Veterans [facility] facilities. It does not include [...] ORAL, 'S LAB, 500 ea. BOTTLE Active [id number] 2023 90 Pharmac y Data Transac [...] Site Reaction Lot Number CVX Code Drug Welfare Administrator Status Comments Source influenza, injectable, quadrivalent- pf 2021 [id number] GlaxBlizuuithKli ne complet ed influenza , injectabl e, quadrival ent-pf 01/16/22 Given Ambulat ory Pharmac y tetanus, diphtheria, acellular pertu is 2021 [id number] sanofi pasteur complet ed tetanus, diphtheri a, acellular pertussis 01/16/22 Given Ambulat ory Pharmac y influenza, injectable, quadrivalent, preservative free 2020 BOGLILA, () Not Given influenza , injectabl e, quadrival ent, preservat malgorzata free [facility] COVID-19, mRNA, LNP-S, PF, 30 mcg/0.3 mL dose 2020 [place] (PFR) Not Given COVID-19, mRNA, LNP-S, PF, 30 mcg/0.3 mL dose DoD COVID Vaccine Pfizer 2020 [id number] PFIZER complet ed COVID Vaccine Pfizer 11/17/20 Given Ambulat ory Pharmac y typhoid Vi capsular polysaccharid e vac 2020 [id number] 101 sanofi pasteur complet ed typhoid Vi capsular polysacch aride vac 04/26/20 Given Ambulat ory Pharmac y influenza, injectable, quadrivalent- pf 2019 [id number] 150 Seqirus complet ed influenza , injectabl e, quadrival ent-pf 01/16/20 Given Ambulat ory Pharmac y influenza, injectable, quadrivalent- pf 2018 [id number] 150 Seqirus complet ed influenza , injectabl e, quadrival ent-pf 02/14/19 Given Ambulat ory Pharmac y Influenza, injectable, quadrivalent, preservative free 0 2018 [id number] 346 150 Seqirus (SEQ) complet ed Influenza , injectabl e, quadrival ent, preservat malgorzata free [facility] meningococcal A,C,Y,W-135 (MCV4P) 2018 [id number] 114 sanofi pasteur complet ed meningoco ccal A,C,Y,W-1 35 (MCV4P) 04/18/18 Given Ambulat ory Pharmac y typhoid Vi capsular polysaccharid e vac 2018 [id number] 101 sanofi pasteur complet ed typhoid Vi capsular polysacch aride vac 04/18/18 Given Ambulat ory Pharmac y influenza, injectable, quadrivalent- pf 2018 [id number] 150 Seqirus complet ed influenza , injectabl e, quadrival ent-pf 04/18/18 Given Ambulat ory Pharmac y typhoid Vi capsular polysaccharid e vaccine 6 2018 [id number] 101 Sanofi Pasteur (PMC) complet ed typhoid Vi capsular polysacch aride vaccine DoD meningococcal polysaccharid e (groups A, C, Y and W-135) diphtheria toxoid conjugate vaccine (MCV4P) 3 2018 [id number] 114 Sanofi Pasteur (PMC) complet ed meningoco ccal polysacch aride (groups A, C, Y and W-135) diphtheri a toxoid conjugate vaccine (MCV4P) DoD Influenza, injectable, quadrivalent, preservative free 11 2018 [id number] 150 Seqirus (SEQ) comple t ed Influenza , injectabl e, quadrival ent, preservat malgorzata free DoD typhoid Vi capsular polysaccharid e vac 2013 J1201 1 101 sanofi pasteur complet ed typhoid Vi capsular polysacch aride vac 03/21/13 Given Ambulat ory Pharmac y measles/mumps /rubella virus vaccine 2013 [id number] 03 Merck & Company Inc complet ed measles/m umps/rube lla virus vaccine 03/21/13 Given Ambulat ory Pharmac y measles, mumps and rubella virus vaccine 2 2013 [id number] 03 Merck (MSD) complet ed measles, mumps and rubella virus vaccine DoD typhoid Vi capsular polysaccharid e vaccine 5 2013 J1201 1 101 Sanofi Pasteur (PMC) complet ed typhoid Vi capsular polysacch aride vaccine DoD Influenza, injectable, MDCK-pf 2012 [id number] 153 Novartis Pharmaceutica complet ed Influenza , injectabl e, MDCK-pf 01/04/13 Given Ambulat ory Pharmac y Influenza, injectable, Madin [place] Canine Kidney, preservative free 0 2012 [id number] 153 Novartis Pharmaceutica l Izabella. (NOV) complet ed Influenza , injectabl e, Madin Brandi Canine Kidney, preservat malgorzata free DoD influenza, seasonal, injectable-pf 2011 [id number] 140 CSL Behring complet ed influenza , seasonal, injectabl e-pf 01/13/12 Given Ambulat ory Pharmac y tetanus, diphtheria, acellular pertu is 2011 [id number] 115 sanofi pasteur complet ed tetanus, diphtheri a, acellular pertussis 01/13/12 Given Ambulat ory Pharmac y tetanus toxoid, reduced diphtheria toxoid, and acellular pertu is vaccine, adsorbed 0 2011 [id number] 115 Sanofi Pasteur (PMC) complet ed tetanus toxoid, reduced diphtheri a toxoid, and acellular pertussis vaccine, adsorbed DoD Influenza, seasonal, injectable, preservative free 9 2011 [id number] 140 CS PaxVaxherapies, Inc. (CS) complet ed Influenza , seasonal, injectabl e, preservat malgorzata free DoD typhoid Vi capsular polysaccharid e vac 2010 [id number] 101 sanofi pasteur complet ed typhoid Vi capsular polysacch aride vac 01/13/11 Given Ambulat ory Pharmac y influenza, seasonal, injectable-pf 2010 [id number] 140 CSL Behring complet ed influenza , seasonal, injectabl e-pf 01/13/11 Given Ambulat ory Pharmac y typhoid Vi capsular polysaccharid e vaccine 4 2010 [id number] 101 Sanofi Pasteur ([facility]) complet ed typhoid Vi capsular polysacch aride vaccine DoD Influenza, seasonal, injectable, preservative free 8 2010 [id number] [id number] 140 CS PaxVaxherapies, Inc. (CS) complet ed Influenza , seasonal, injectabl e, preservat malgorzata free DoD meningococcal A,C,Y,W-135 (MCV4P) 2010 [id number] 114 sanofi pasteur complet ed meningoco ccal A,C,Y,W-1 35 (MCV4P) 03/19/10 Given Ambulat ory Pharmac y meningococcal polysaccharid e (groups A, C, Y and W-135) diphtheria toxoid conjugate vaccine (MCV4P) 1 2010 [id number] 114 Sanofi Pasteur (PMC) complet ed meningoco ccal polysacch aride (groups A, C, Y and W-135) diphtheri a toxoid conjugate vaccine (MCV4P) [facility] influenza virus vaccine,split 2009 [id number] 1B 15 CSL Behring complet ed influenza virus vaccine,s plit 12/22/09 Given Ambulat ory Pharmac y anthrax vaccine 2009 [id number] 24 Emergent Biosolutions complet ed anthrax vaccine 12/22/09 Given Ambulat ory Pharmac y influenza virus vaccine, split virus (incl. purified surface antigen)-reti red CODE 1 2009 [id number] 1B 15 SemiNex, Inc. (CSL) complet ed influenza virus vaccine, split virus (incl. purified surface antigen)- retired CODE DoD anthrax vaccine 1 2009 [id number] 24 Emergent [employer] [place] (MIP) complet ed anthrax vaccine DoD Novel influenza-H1N 1-09, injectable 2009 [id number] 1 127 Novartis Pharmaceutica ls complet ed Novel influenza -R4V8-32, injectabl e 04/03/09 Given Ambulat ory Pharmac y Novel influenza-H1N 1-09, injectable 1 2009 [id number] 1 127 Novartis Pharmaceutica l Izabella. (NOV) complet ed Novel influenza -P6E8-18, injectabl e DoD influenza virus vaccine, live 2008 [id number] 111 amiando Inc comple t ed influenza virus vaccine, [...] live, attenuated, for intranasal use 1 2008 [id number] 111 Platial, Inc. (MED) complet ed influenza virus vaccine, live, attenuate d, for intranasa l use DoD influenza virus vaccine,split 2007 [id number] 15 GlaxoSmithKli ne complet ed influenza virus vaccine,s plit 01/10/08 Given Ambulat ory Pharmac y influenza virus vaccine, split virus (incl. purified surface antigen)-reti red CODE 1 2007 [id number] 2AA 15 Magellan Bioscience Group (SKB) complet ed influenza virus vaccine, split [...] virus vaccine DoD influenza virus vaccine,split 2005 [id number] 15 Unknown complet ed influenza virus vaccine,s plit 02/09/06 Given Ambulat ory Pharmac y influenza virus vaccine, split virus (incl. purified surface antigen)-reti red CODE 1 2005 [id number] 15 Other (OTH) complet ed influenza virus vaccine, split virus (incl. purified surface antigen)- retired CODE DoD tuberculin purified protein derivative 2005 [id number] 96 sanofi pasteur complet ed tuberculi n purified protein derivativ e 12/12/05 Given Ambulat ory Pharmac y poliovirus vaccine, inactivated 2005 Y1068 10 sanofi pasteur complet ed polioviru s vaccine, inactivat ed 12/12/05 Given Ambulat ory Pharmac y poliovirus vaccine, inactivated 1 2005 [id number] 10 Sanofi Pasteur ([facility]) complet ed polioviru s vaccine, inactivat ed DoD yellow fever vaccine 2005 [id number] 37 sanofi pasteur complet ed yellow fever vaccine 12/10/05 Given Ambulat ory Pharmac y yellow fever vaccine 1 2005 [id number] 37 Sanofi Pasteur (PMC) complet ed yellow [...] B vaccine 2 2005 [id number] 104 [facility] hepatitis A and hepatitis B vaccine DoD hepatitis A-hepatitis B vaccine 2005 [id number] 5AA 104 GlaxoSmithKli ne complet ed hepatitis A-hepatit is B vaccine 03/18/05 Given Ambulat ory Pharmac y typhoid vaccine, parenteral 2005 I5575-1 41 sanofi pasteur complet ed typhoid vaccine, parentera l 03/18/05 Given Ambulat ory Pharmac y meningococcal polysaccharid e (MPSV4) 2005 [id number] 32 sanofi pasteur complet ed meningoco ccal polysacch aride (MPSV4) 03/18/05 Given Ambulat ory Pharmac y influenza virus vaccine,split 2005 [id number] 15 sanofi pasteur complet ed influenza virus vaccine,s plit 03/18/05 Given Ambulat ory Pharmac y tetanus-dipht h toxoids (Td) adult/adol 2005 [id number] 09 sanofi pasteur complet ed tetanus-d iphth [...] 2 Lf of diphtheria toxoid) 1 2005 [id number] 09 Sanofi Pasteur ([facility]) complet ed tetanus and diphtheri a toxoids, adsorbed, preservat malgorzata free, for adult use (2 Lf of tetanus toxoid and 2 Lf of diphtheri a toxoid) DoD influenza virus vaccine, split virus (incl. purified surface antigen)-reti red CODE 1 2005 [id number] 15 Sanofi Pasteur ([facility]) complet ed influenza virus vaccine, split virus (incl. purified surface antigen)- retired CODE DoD meningococcal polysaccharid e vaccine (MPSV4) 1 2005 [id number] 32 Sanofi Pasteur (PMC) complet ed meningoco ccal polysacch aride vaccine (MPSV4) DoD typhoid vaccine, parenteral, other than acetone-kille d, dried 1 2005 [id number] 41 Sanofi Pasteur (PMC) complet ed typhoid vaccine, parentera l, other than acetone-k illed, dried DoD hepatitis A and hepatitis B vaccine 1 2005 [id number] 104 SmithKline (SKB) complet ed hepatitis A and hepatitis B vaccine DoD influenza virus vaccine,split 2004 [id number] 15 sanofi pasteur complet ed influenza virus vaccine,s plit 02/10/05 Given Ambulat ory Pharmac y influenza virus vaccine, split virus (incl. purified surface antigen)-reti red CODE 1 2004 [id number] 15 Sanofi Pasteur ([facility]) complet ed influenza virus vaccine, [...] Prevention' s HIV diagnostic algorithm. Refer to [facility] Lab Guide for additional information : [email or web address]/ [email or web address] x Testing [...] ADM Date DC Date Status Disposition Source [address] [place] [address]([facility]) OUTPATIENT [id number] SANDRO Car 09/28 Released w/o Limitations [facility]) [address] [place] [address]([facility]) OUTPATIENT [id number] SANDRO Okeefe 10/11 Released w/o Limitations [address] [place] [address]([facility]) [address] [place] [address]([facility]) OUTPATIENT [id number] SANDRO Okeefe 10/16 Released w/o Limitations [address] [place] [address]([facility]) [address] [place] [address]([facility]) OUTPATIENT [id number] [facility] NOAM Banks 10/19 Released w/o Limitations [address] [place] [address]([facility]) [address] [place] [address]([facility]) [facility]IENT [id number] [facility] 10/19 Released w/o Limitations [address] [place] [address]([facility]) [place] [address]([facility]er d_[facility]_ Med Team [facility]) [facility] [id number] [facility] Released w/o Limitations [facility] [place] [address](R eid_[facility] ght_Med Team A) 8344R-439 AMDS Between Visit [id number] 09/26 Discharge Disposition: Home or Self Care 8344R-4 39 AMDS 8344R-439 AMDS Between Visit [id number] 11/13 Discharge Disposition: Home or Self Care 8344R-4 39 AMDS 8344R-439 AMDS Between Visit [id number] 01/27 Discharge Disposition: Home or Self Care 8344R-4 39 AMDS 8344R-439 AMDS Between Visit [id number] 03/09 Discharge Disposition: Home or Self Care 8344R-4 39 AMDS 8344R-439 AMDS Between Visit [id number] 05/04 Discharge Disposition: Home or Self Care 8344R-4 39 AMDS Procedures Combined list of: 1) Procedures from Department of Veterans Affairs facilities [facility], not all [place] non-surgical procedures are included; 2) All procedures from the Department of Defense facilities. Procedure Procedure Type Code Date Perfomer Comments Sourc e REMOVAL IMPACTED CERUMEN REQUIRING INSTRUMENTATION, UNILATERAL 04/17/19 12 [facility] PSYCHIATRIC DIAGNOSTIC INTERVIEW EXAMINATION 10/20/19 06 [facility] NONINVASIVE EAR OR PULSE OXIMETRY FOR OXYGEN SATURATION; SINGLE DETERMINATION 01/05/20 07 [facility] Psychiatric Evaluation Comprehensive Examination Psychiatric Evaluation Comprehensive Examination [id number] 10/20/19 06 NOAM CLEMENT [facility] No data available for this section Ambulato ry Pharmacy Social History Combined list of available smoking, tobacco, and other social history from Department of Defense and Veterans Affairs facilities. Social History Type Response Date Comment Sourc e Sex Representation Male (finding) 03/22/2022 Un known Organization This section is an empty social history section. [facility] Sexual Orientation Ambula tory Pharmacy Gender identity [...] 10 mg PRN Atorvastatin 20mg Chronic Problems: ?[id number]-Jzdviepsf low back pain Hyperlipidemia SF 507: _ [...] is able to complete duties required by [facility]. No acute complaints.NO: Fly?waiver. Initial [...] Discussion with cross-training to a non flyer [facility] ANNUAL PERIODIC HEALTH ASSESSMENT I. 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 Last Name: JOHN 2. First Name: MARCELINO 3. Middle Name: SAGAR 4. Assessment Date: 5. : 6. Age: 53 7. Gender: M 8. DoD ID Number: [id number] 9. Service Branch: [employer] 10. 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 Unit Name: Gagandeep AZUL 14. Duty Station/Location: [place] 15. UIC: [id number] 16. Is this your first Periodic Health Assessment (PHA)?: N 17. Are you enrolled in a secure messaging system with your health care provider?: 18. Current contact information: Preferred Method: Email 2 DSN: [id number] Day Time Phone: [phone] Night Time Phone: [phone] Email 1: [email or web address] Email 2: [email or web address] Address: [address] [place] [address]: [facility]: [place] Zip Code: [address] 19. Point of contact who can always reach you: Name: JANEY LOPEZ Phone 1: [phone] Phone 2: EMAIL: [email or web address] Address: [address] [place] [address]: [facility]: [place] Zip Code: [address] II. DEPLOYMENT INFORMATION (DEP) 1. [ 0 ] Total number of deployments in the PAST 5 YEARS 4. [ N ] Are you going to deploy within the NEXT 120 DAYS? III. 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 [ [...] easily startled? 6. d. [ No ] [place] numb or detached from others, activities, or your surroundings? 6. e. [ Not answered ] [place] guilt or unable to stop blaming yourself [...] like to schedule a visit with a sales representative wire rope, mental health care provider, or a community [...] [ TYLENOL, ADVIL ] What prescriptions or ylpu-hou-agpbyie medications are you CURRENTLY taking for health [...] had a cholesterol check by a health day care worker within the PAST 5 YEARS? [...] discuss any health concerns? XI. SEPARATION AND [facility] 1. [ No ] Are you planning to separate or retire within the next year from Active Duty or [place] Duty (activated for greater than 30 continuous days) OR do you intend to file a claim for disability compensation with the Veterans Benefits Administration? PART B. RECORD REVIEW AND RECOMMENDATIONS I. RECORD REVIEWER INFORMATION 1. Last Name: MANINDER 2. First Name: NAHOMY 3. Middle Name: VÍCTOR 4. Service Branch: [employer] 5. Status: 6. 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 EMAIL: [email or web address] 8. Facility: [facility] 9. Unit: [facility] 10. Address: [address] [place] [address] 11. State: [place] 12. Zip Code: [address] 13. Phone: [phone] 14. Date Record Review: II. MEDICAL SCREENING 1. [ ] Date of aboriginal community council member's most recent PHA 2. [ 5 feet 10 inches Date: ] aboriginal community council member's most recently documented height 3. [ 252 pounds Date: ] aboriginal community council member's most recently documented weight 4. [ 131/87 Date: ] aboriginal community council member's most recently documented blood pressure reading 5. [ No ] Does the aboriginal community council member have a history of abnormal blood pressure since their last PHA? 6. [ Yes ] Does the aboriginal community council member have a laboratory test of sickle cell trait documented in their permanent medical record? 7. [ No Cholesterol Test Documented ] What is the date of the aboriginal community council member's most recently documented cholesterol test? 8. [ No Colon Cancer Screening Documented ] What is the date of the aboriginal community council member's most recently documented colon cancer screening? 9. [ Motrin 800 mg, cyclobenzaprine 10 mg ] List of aboriginal community council member's active medications listed in their permanent medical record 10. [ No ] Is there a discrepancy between the active medication record review and the aboriginal community council member's self-reported list of medications? 11. [ Nerve root compression; low back pain ] List documented significant care the aboriginal community council member has received since their last PHA from a provider OUTSIDE the Health System 12. [ No ] Is there a discrepancy between the aboriginal community council member's list of OUTSIDE care (from OT5), and the OUTSIDE care found in the record? 13. [ No Inside Care Documented ] List documented significant care the aboriginal community council member has received since their last PHA [...] medical documentation of allergies and compare with aboriginal community council member responses. Document any discrepancies III. OCCUPATION-SPECIFIC EXAMINATIONS 1. [ ] When was the aboriginal community council member's most recently documented special operational duty physical exam? IV. FAMILY HISTORY AND LIFESTYLE 1. [ Yes ] Does the PW7711 reflect the aboriginal community council member's reported family history? VII. INDIVIDUAL MEDICAL READINESS 1. [ No ] Does the aboriginal community council member have an Assignment Limitation Code C? 2. [ 7 Expires: ] Number of months in the past year the aboriginal community council member has been in temporary duty status 3. [ Classification: 1 ] Most recently documented dental exam 4. [ Yes ] Is the aboriginal community council member current on all required immunizations in the immunization tracking system? 5. [ Yes ] Is the aboriginal community council member current with Service-specific requirements for glasses and gas mask inserts? 6. Does the aboriginal community council member have the following laboratory tests documented [...] need to be forwarded to the [facility] completing PART C: Tinnitus, high cholesterol, low [...] OLIVE 3. Middle Name: 4. Service Branch: [employer] 5. Status: Reservist 6. Title: Physician (, ) 7. EMAIL: [email or web address] 8. Facility: [address] [place] [address] 9. Unit: [address] [place] [address] 10. Address: [address] [place] [address] 11. State: [facility]. Zip Code: [address] 13. 14. Date HCP Review initiated: 1. [...] Internal Medicine: Within 30 days 11. Comments: aboriginal community council member reported they have not gambled in the past 12 months. 13. Supplemental services recommended/information provided: No supplemental services required Date MHA Certified: III. PERIODIC HEALTH ASSESSMENT (PHA) PROVIDER INFORMATION 1. Last Name: ALFONSO 2. First Name: OLIVE 3. Middle Name: 4. Service Branch: [employer] 5. Status: Reservist 6. Title: Physician (DO STEPHIE) 7. EMAIL: [email or web address] 8. Facility: [address] [place] [address] 9. Unit: [address] [place] [address] 10. Address: [address] [place] [address] 11. State: [place] 12. Zip Code: [address] 13. 14. Date HCP Review initiated: IV. PERIODIC HEALTH ASSESSMENT PROVIDER RECOMMENDATIONS and REFERRALS 1. Provider concerns with this assessment: Issue or concerns identified after review of aboriginal community council member responses, medical documentation, and Mental Health Assessment. 2. Summary of Provider's identified concerns: - Physical Health Recommended referal(s): Primary Care, Family Practice, Internal Medicine: Within 30 days Referral Time Comments: V. SUMMARY AND COMMENTS 1. Additional information summarizing findings during the aboriginal community council member assessment: 2. Provider Comments: PCP follow up s/p back surgery and post physical therapy- member is under care . INDIVIDUAL MEDICAL READINESS DISPOSITION DETERMINATION DHARA: Not Ready DEN: Ready IMM: Ready LAB: Ready ME: Ready IMR Status: Partially Medically Ready VII. SERVICE MEDICAL DEPLOYABILITY EVALUATION INDICATED Based on your review of all documentation, is the aboriginal community council member medically deployable without limitations? Reference Alea 6490.07 No (aboriginal community council member currently has a medical condition that DOES require duty limitation(s) AND limits deployability) Date PHA Completed: END OF VC2614 REPORT Impression: Meets?_?medical standards per YAMILA 48-123/MSD. Aeromedical Disposition: DNIF. DD 2992?signed. No AF469 changes based on this encounter. No change to deployability status 07/01/2024 8344R-439 AMDS Functional Status Combined list of recent functional and cognitive assessments recorded at Department of Defense and Veterans Affairs (VA).VA Functional [place] Measurement (FIM) Scale: 1 = Total Assistance (Subject = 0% +), 2 = Maximal Assistance (Subject = 25% +), 3 = Moderate Assistance (Subject = 50% +), 4 = Minimal Assistance (Subject = 75% +), 5 = Supervision, 6 = Modified [place] (Device), 7 = Complete [place] (Timely, Safely). Assessment Date/Time Source Assessment Type Assessment Skill Assessment Score Assessment Details No data available for this section
== END 2024-07-01 16:05 | disposition home or self-care (01) ==
PROVIDERS: PCP Nurse Practitioner Family; Visit Provider Physician Assistant
DX: M25.561 Pain in right knee (principal)

== ENCOUNTER → 2024-07-01 15:34 | Outpatient (BNVA) | payer OTHER, SELFPAY | PROVIDERS: PCP Nurse Practitioner Family; Visit Provider Physician Assistant | DX: M25.561 Pain in right knee (principal) | CPT/HCPCS: 99212 ==

== ENCOUNTER 2024-09-14 07:23 | Outpatient (REF) | payer OTHER, SELFPAY ==
--- NOTE | ~2024-09-14 | XR_ITS ---
EXAMINATION: XR KNEE 1-2 VIEWS RIGHT HISTORY: M25.569 - Pain in unspecified knee COMPARISON: Comparison is made with the prior examination dated 06/27/2024. FINDINGS: Standing AP views of the bilateral knees and an additional sunrise patellar view of the right knee are submitted. Osseous mineralization is normal. There is no fracture or dislocation. The joint spaces are preserved. The soft tissues are unremarkable. XR/XR knee RT 2V IMPRESSION: Unremarkable examination of the right knee. Electronically signed by: Alexis Wolf MD 09/14/2024 11:46 AM EDT
--- OUTSIDE RECORDS SUMMARY | 2024-09-15 07:25 | XMS_ITS | Clinical Summary ---
Author Organization [facility] Address [address] [place] [address] Care Team Providers Care Agriculture Scientist Name Role Phone Unavailable Primary Care Provider [...]
== END 2024-09-14 07:24 | disposition home or self-care (01) ==
LOC: HO.HOSX 07:23
PROVIDERS: Visit Provider Physician Assistant
DX: M25.561 Pain in right knee (principal)
CPT/HCPCS: 73560; 99202

== ENCOUNTER 2024-09-14 10:33 | Outpatient (AMB) | payer OTHER, SELFPAY ==
--- NOTE | 2024-09-14 10:49 | A.OFFVIS_ITS ---
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 Patient was [place] at [facility] two separate occasions due to his pain. His most recent visit he was prescribed Tramadol for his pain and a course of prednisone. Today patient reports bilateral knee pain with his right knee being the worse after he hyperextend his leg when his missed a step at work. His pain has been present for the past 2 months. He had a recent cortisone injections on 08/11/24 at [facility], which provided him with some relief. He currently has intermittent pain located at the medial aspect of knee. No other treatment. 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 He states he missed a step going down stairs and felt a weird impact on his knee. He states he was seen at urgent care, xrays obtained. He was given an inject of Toradol and also Prednisone with no relief. He states he has tried knee braces with minimal relief. He was seen by physiatry 08/11/24 bilat knee injections with mild relief. He works at a [employer]. He states pain is worse with extension, walking and stairs. PENDING SALE TO [facility] Medical History Ankle injury Knee pain Cervical muscle strain Otitis media, right Low back pain radiating to lower extremity Disc degeneration, lumbar Chronic pain syndrome Radiculopathy, lumbar region Sinusitis Dyslipidemia Bilateral hip pain SI (sacroiliac) joint dysfunction Post-COVID chronic cough Elevated cholesterol Acute middle ear effusion Surgical History H/O radiofrequency ablation (RFA) of nerve of lumbar spine History of esophagogastroduodenoscopy (EGD) Hx of colonoscopy History of lumbar laminectomy S/P lumbar laminectomy Hx of tonsillectomy H/O shoulder surgery Family History Other H/O shoulder surgery History of lumbar laminectomy Hx of tonsillectomy Social History Patient Tobacco Use Status: Never used Tobacco e-Cigarette/Vaping Use: Never Used Second Hand Smoke Exposure: No service: Yes Current occupational status: employed Current occupational exposures/hazards: Yes Cognitive needs: No Hearing needs: No Vision needs: No Review of Systems Const All systems reviewed & are unremarkable except as noted in HPI and below Physical Exam Vital Signs: BMI result Body Mass Index 38.3 Const General: cooperative and no acute distress Orientation/consciousness: patient oriented x3 Resp Effort & Inspection: normal respiratory effort and able to speak in complete sentences Cardio Peripheral pulses: Peripheral pulses 2+ throughout Neuro General: patient oriented x3 Extrem Other: Rt knee normal to inspection, Full ROM with mild crepitus. Medial joint line tenderness presents Results Reviewed Results Reviewed: X-rays of the right knee obtained in the office today and reviewed by me show mild arthritis otherwise no acute abnormalities. Assessment & Plan Assessment & Plan (1) Internal derangement of right knee: Code(s): M23.91 - Unspecified internal derangement of right knee Category: Medical Plan The patient continues to remain symptomatic with activities such as twisting and pivoting which limit his ability to remain active. He has failed conservative measures which include steroid injections. At this time an MRI of the right knee has been ordered to further evaluate the integrity of his meniscus. 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 Once the scan is complete I will contact him to discuss next step in his treatment Orders: Orders MR knee RT wo con Today M17.11 - Unilateral primary osteoarthritis, right knee XR knee RT 2V Today M25.569 - Pain in unspecified knee PT Evaluation and Treatment Today M23.91 - Unspecified internal derangement of right knee Coding Level of Care Code New Pt Level 3 (30226) Complex EM visit Add On G2211 Diagnoses Internal derangement of right knee M23.91
[2024-09-14 10:54] VITALS: BMI 38.3
--- OUTSIDE RECORDS SUMMARY | 2024-09-14 11:25 | XMS_ITS | Clinical Summary ---
Author Organization [facility] Address [address] [place] [address] Care Team Providers Care Filter Plant Supervisor Name Role Phone Unavailable Primary Care Provider [...] - 2023-2 5 season) 2023 Influenza (#1) 2024 HPV Vaccine Aged Out No longer eligi [...]
== END 2024-09-14 15:47 | disposition home or self-care (01) ==
LOC: HO.HOS 10:34
PROVIDERS: PCP Nurse Practitioner Family; Visit Provider Physician Assistant
DX: M23.91 Unspecified internal derangement of right knee (principal)
CPT/HCPCS: 99203; G2211

== ENCOUNTER → 2024-09-14 10:36 | Outpatient (BNV) | payer OTHER, SELFPAY | PROVIDERS: Visit Provider Radiology Diagnostic Radiology | DX: M25.561 Pain in right knee (principal) | CPT/HCPCS: 73560 ==

== ENCOUNTER → 2024-09-15 08:16 | Outpatient (BNVA) | payer OTHER, SELFPAY | PROVIDERS: Visit Provider Physician Assistant Medical | DX: J06.9 Acute upper respiratory infection, unspecified (principal) | CPT/HCPCS: 99212 ==

== ENCOUNTER 2024-09-15 09:13 | Outpatient (AMB) | payer OTHER, SELFPAY ==
--- NOTE | 2024-09-15 09:20 | AM.OFFWIN_ITS ---
Intake Vital Signs 09/15/24 09:23 Height 5 ft 10 in Weight 267 lb BMI 38.3 BP 130/98 H Blood Pressure Location Lt brachial Position Sitting Pulse 71 Pulse Source Pulse Oximeter Temp 98.1 F Temp Source Oral Pulse Oximetry (%) 97 Oxygen Delivery Method Room Air Intake Visit Reasons: EP cold symptoms Intake Note: productive cough with green phlegm, sore throat with coughing only, sinus congestion, mild body aches, around 5-6 days Patient Tobacco Use Status: Never used Tobacco Allergies amoxicillin (AMOXICILLIN) Allergy (Intermediate, Verified 09/15/24 09:25) HIVES penicillin V Allergy (Unknown, Verified 09/15/24 09:25) hives Do you need a note to return to daycare/school/sports/work: Yes Return to daycare/school/sports/work/other note: work HPI HPI Comments History of Present Illness Details History of Present Illness - The patient is a 54-year-old male pres enting with cold symptoms. - Symptoms began approximately one week ago, initially perceived as allergies. - Progression included nasal congestion and cough with greenish sputum. - The patient reports ear discomfort and sore throat when coughing. - Lijp-efd-xkldhkz medications such as C laritin, Sudafed, and Tylenol have been used without significant relief. - The patient's has also experience d similar symptoms. - He denies fever, chills, CP, SOB, abd pain, n/v/d. - He is not a smoker. Physical Exam General: Cooperative, healthy appearing, comfortable, no acute distress and well developed Head: Normal to inspection Ears: Hearing grossly normal bilaterally. No tragus or mastoid tenderness noted. Auditory canals clear bilaterally. TM's normal, not bulging. No fluid noted. Nose: Normal external nose present. Moist mucosa. Turbinates normal bilaterally, not boggy. Face and sinus: Tenderness to palpation of the frontal and maxillary sinuses bilaterally. Neck: Normal visual inspection and Yes full ROM. No lymphadenopathy noted. Respiratory: Normal respiratory effort and able to speak in complete sentences. Clear to auscultation bilaterally Cardiovascular: Regular rate and rhythm. Normal S1 and S2 Skin: No rashes or lesions noted [facility] Medical History Ankle injury Knee pain Cervical muscle strain Otitis media, right Low back pain radiating to lower extremity Disc degeneration, lumbar Chronic pain syndrome Radiculopathy, lumbar region Sinusitis Dyslipidemia Bilateral hip pain SI (sacroiliac) joint dysfunction Post-COVID chronic cough Elevated cholesterol Acute middle ear effusion Surgical History H/O radiofrequency ablation (RFA) of nerve of lumbar spine History of esophagogastroduodenoscopy (EGD) Hx of colonoscopy History of lumbar laminectomy S/P lumbar laminectomy Hx of tonsillectomy H/O shoulder surgery Family History Other H/O shoulder surgery History of lumbar laminectomy Hx of tonsillectomy Social History Patient Tobacco Use Status: Never used Tobacco e-Cigarette/Vaping Use: Never Used Second Hand Smoke Exposure: No service: Yes Current occupational status: employed Current occupational exposures/hazards: Yes Cognitive needs: No Hearing needs: No Vision needs: No Review of Systems Const All systems reviewed & are unremarkable except as noted in HPI and below Physical Exam Vital Signs: Last Vital Signs Temp 98.1 F 09/15/24 09:23 Pulse 71 09/15/24 09:23 BP 130/98 H 09/15/24 09:23 Pulse Ox 97 09/15/24 09:23 Oxygen Delivery Method Room Air 09/15/24 09:23 BMI result Body Mass Index 38.3 Assessment & Plan Assessment & Plan (1) URI with cough and congestion: Code(s): J06.9 - Acute upper respiratory infection, unspecified Plan Most likely URI vs sinusitis vs allergic rhinitis vs flu vs viral illness Plan - tylenol or motrin as needed - steam showers - continue with Flonase - Augmetin BID for 10 days - Tessalon perles as needed for cough - Zyrtec D daily - follow up with PCP if no better Medications: New amoxicillin-pot clavulanate 875-125 mg 1 tab PO Q12H 20 tabs 0RF 10 days benzonatate 100 mg PO bid-tid PRN 21 caps 0RF Cough 7 days cetirizine-pseudoephedrine 5-120 mg ER 1 tab PO BID 14 tabs 0RF 7 days Coding Level of Care Code Est Pt Level 3 (41699) Diagnoses URI with cough and congestion J06.9
[2024-09-15 09:23] VITALS: BP 130/98; PULSE 71; TEMP 36.7; O2SAT 97; BMI 38.3
== END 2024-09-15 10:04 | disposition home or self-care (01) ==
PROVIDERS: Visit Provider Physician Assistant Medical
DX: J06.9 Acute upper respiratory infection, unspecified (principal)

== ENCOUNTER 2024-10-08 18:00 | Outpatient (REF) | payer OTHER, SELFPAY ==
--- NOTE | ~2024-10-08 | MR_ITS ---
CLINICAL HISTORY: M17.11 - Unilateral primary osteoarthritis, right knee MR right knee without gadolinium Comparison: None provided Findings: No fractures. No pathologic bone lesions. Small simple effusion. Olguin's cyst. Cruciate and collateral ligaments are intact. Patellar retinacula and iliotibial band are intact. No tears of the quadriceps, patellar, popliteus, or flexor tendons. There are no meniscal tears. IMPRESSION: 1. Small joint effusion and Olguin's cyst This document has been electronically signed by: Jamal Diaz MD on 10/10/2024 08:51:12
== END 2024-10-08 18:01 | disposition home or self-care (01) ==
LOC: HO.MRI 18:00
PROVIDERS: PCP Nurse Practitioner Family; Visit Provider Physician Assistant
DX: M17.11 Unilateral primary osteoarthritis, right knee (principal)
CPT/HCPCS: 73721

== ENCOUNTER → 2024-10-08 18:07 | Outpatient (BNV) | payer OTHER, SELFPAY | PROVIDERS: PCP Nurse Practitioner Family; Visit Provider Specialist | DX: M71.21 Synovial cyst of popliteal space [Baker], right knee (principal) | CPT/HCPCS: 73721 ==

== ENCOUNTER 2024-12-03 15:28 | Outpatient (AMB) | payer OTHER, SELFPAY ==
--- NOTE | 2024-12-03 15:30 | MHC.OFFVIS ---
Intake Visit Reasons: TH-Rt knee MRI review Intake Note: Chris is a 54 year old male who is scheduled for a telehealth visit to discuss MRI results of right knee. Allergies amoxicillin (AMOXICILLIN) Allergy (Intermediate, Verified 12/03/24 15:33) HIVES penicillin V Allergy (Unknown, Verified 12/03/24 15:33) hives Medication List - Last Reconciled 12/07/24 by Gilda Fortune PA-C acetaminophen (Tylenol Extra Strength) 1,000 mg PO Q6H PRN amoxicillin-pot clavulanate 875-125 mg 1 tab PO Q12H 10 days atorvastatin 20 mg PO BEDTIME benzonatate 100 mg PO bid-tid PRN 7 days cetirizine-pseudoephedrine 5-120 mg ER 1 tab PO BID 7 days cyclobenzaprine 5 mg PO BEDTIME PRN fluticasone propionate 50 mcg/actuation (Flonase Allergy Relief) 2 sprays intranasal DAILY 30 days gabapentin 100 mg PO BEDTIME PRN miscellaneous medical supply As directed tramadol 50 mg PO DAILY HPI HPI TH-Rt knee MRI review: Details: Patient presents for telehealth Rt knee MRI review. Patient states he continues to have pain along the joint line which is worse with twisting and pivoting motions. He states the injection was somewhat helpful but he has been experiencing pain for more than 3 months and it is limiting his activities. [facility] Medical History Ankle injury Knee pain Cervical muscle strain Otitis media, right Low back pain radiating to lower extremity Disc degeneration, lumbar Chronic pain syndrome Radiculopathy, lumbar region Sinusitis Dyslipidemia Bilateral hip pain SI (sacroiliac) joint dysfunction Post-COVID chronic cough Elevated cholesterol Acute middle ear effusion Surgical History H/O radiofrequency ablation (RFA) of nerve of lumbar spine History of esophagogastroduodenoscopy (EGD) Hx of colonoscopy History of lumbar laminectomy S/P lumbar laminectomy Hx of tonsillectomy H/O shoulder surgery Family History Other H/O shoulder surgery History of lumbar laminectomy Hx of tonsillectomy Social History Patient Tobacco Use Status: Never used Tobacco e-Cigarette/Vaping Use: Never Used Second Hand Smoke Exposure: No service: Yes Current occupational status: employed Current occupational exposures/hazards: Yes Cognitive needs: No Hearing needs: No Vision needs: No Review of Systems Const All systems reviewed & are unremarkable except as noted in HPI and below Physical Exam Resp Effort & Inspection: normal respiratory effort and able to speak in complete sentences Telehealth Telehealth Telehealth Platform: Telephone (video unavailable) Location of provider rendering services: practice address Location of patient: address on file Patient Identification confirmed using: Name, : Yes Telehealth method: voice only Patient verbally consented to treatment: Yes Patient verbally consented to billing insurance company: Yes Patient informed of any privacy concerns related to visit: Yes Minutes spent on Phone/Video with Pt.: 10 Results Reviewed Results Reviewed: IMPRESSION: 1. Small joint effusion and Olguin's cyst Assessment & Plan Assessment & Plan (1) Internal derangement of right knee: Code(s): M23.91 - Unspecified internal derangement of right knee Category: Medical Plan: MRI findings were discussed with the patient. Although the report does not mentioned a meniscus tear there is some areas on the MRI that does represent possible meniscus tearing. The patient's symptoms are consistent with meniscus tear and continues to cause limitations. He would like to follow up with Dr. Baker to discuss whether or not surgical intervention would be warranted. The patient will schedule as discussed. Coding Level of Care Code Tele Est Pt Level 3 (73612) Complex EM visit Add On G2211 Diagnoses Internal derangement of right knee M23.91
--- OUTSIDE RECORDS SUMMARY | 2024-12-03 19:33 | XMS_ITS | Clinical Summary ---
Author Organization [facility] Address [address] [place] [address] Care Team Providers Care Immigration Associate Name Role Phone Unavailable Primary Care Provider [...] (Shingrix) (1 of 2) 2018 COVID-19 Vaccine (1 - 2023-2 5 season) 2024 Influenza (#1) 2024 HPV Vaccine (No Doses Required) Completed Hep A Aged Out No longer eligi ble based on patient's age to complete this topic Hib Aged Out No longer eligi ble based on patient's age to complete this topic Meningococcal ACWY Aged Out No longer eligible based on patient's age to complete this topic
== END 2024-12-03 15:50 | disposition home or self-care (01) ==
LOC: HO.HOS 15:28
PROVIDERS: PCP Nurse Practitioner Family; Visit Provider Physician Assistant
DX: M23.91 Unspecified internal derangement of right knee (principal)
CPT/HCPCS: 99213; G2211

== ENCOUNTER 2024-12-17 09:14 | Outpatient (AMB) | payer OTHER, SELFPAY ==
--- NOTE | 2024-12-17 09:18 | A.OFFPC_ITS ---
Vital Signs 12/17/24 09:19 Height 5 ft 10 in Weight 281 lb BMI 40.3 BP 150/88 H Blood Pressure Location Lt brachial Position Sitting Respiration 16 Pulse 64 Pulse Source Pulse Oximeter Temp 98.5 F Temp Source Oral Pulse Oximetry (%) 96 Oxygen Delivery Method Room Air Intake Visit Reasons: PE Business Services Assistant Required: No Accompanied by: Self / Same As Patient Allergies amoxicillin (AMOXICILLIN) Allergy (Intermediate, Verified 12/17/24 09:21) HIVES penicillin V Allergy (Unknown, Verified 12/17/24 09:21) hives Tobacco use date assessed: 12/17/24 Dental Screening Dental Screen Date: 12/17/24 Did you have a dental visit in the last 12 months?: Yes Did you have a dental problem in the last 6 months where you did not have access to dental care?: No Was dental information given to patient?: Patient has dentist HPI PE HPI Details History of Present Illness The patient is a 54-year-old male presenting with a physical examination and follow-up on knee pain. He reports ongoing knee pain and is scheduled for a follow-up with an learning support specialist. He denies any chest pain, shortness of breath, abdominal pain, blood in stool, constipation, diarrhea, suicidal ideation, or homicidal ideation. The patient has gained weight over the past year, attributed to back discomfort and knee pain, and is classified as morbidly obese. A xanthelasma was observed on his right upper eyelid during the examination. Preventative care includes an up-to-date colon cancer screening and a PSA screening that has been ordered. HTN: starting low dose ARB Health Maintenance - Colon cancer screening is up to date - PSA screening has been ordered Social History - Employment: Works several hours, contr ibuting to limited physical activity Review of Systems - Cardiovascular: Denies chest pain - Respiratory: Denies shortness of breat h - Gastrointestinal: Denies abdominal tim n, blood in stool, constipation, diarrhea - Psychiatric: Denies suicidal ideation, homicidal ideation Physical Exam General: Cooperative, healthy appearing, comfortable, no acute distress, well developed, morbidly obese Orientation: Patient oriented x3 Limitations: No limitations Head: Normal to inspection Ears: Hearing grossly normal bilaterally Nose: Normal external nose present Face and sinus: Normal facial exam Eyes: Appearance normal, both eyes and all related structures, xanthelasma on right upper lid Neck: Normal visual inspection and Yes full ROM Respiratory: Normal respiratory effort and able to speak in complete sentences. Clear to auscultation bilaterally Cardiovascular: Regular rate and rhythm. Normal S1 and S2 GI: Normal to inspection. Soft to palpation and nontender : Testicles without masses/lesions and no hernias appreciated Skin: No rashes or lesions noted Neuro: Patient oriented x3 Extremities: Normal to inspection, no edema Results - Colon cancer screening: Up to date - PSA screening: Ordered Plan 1. Morbid Obesity The patient is advised to follow up with a pump tester for weight management strategies. Consideration for a referral to a bariatric specialist may be warranted if conservative measures fail. 2. Knee Pain The patient is scheduled to follow up with an learning support specialist for further evaluation and management of knee pain. 3. Back Discomfort The patient is advised to continue seeing a specialist for ongoing management of back discomfort. 4. Essential (primary) hypertension I10 will have him take his BP at home and drop values off in the near future Discussion Notes During the visit, we discussed the patient's morbid obesity and the importance of weight management strategies. The patient is advised to follow up with an learning support specialist for knee pain and to continue seeing a specialist for back discomfort. Preventative care measures were reviewed, confirming that the colon cancer screening is up to date and a PSA screening has been ordered. Patient Instructions - Follow up with a pump tester for weig ht management. - Consider seeing a bariatric specialist if needed. - Attend the scheduled appointment with the learning support specialist for knee pain. - Continue seeing a specialist for back discomfort. - Complete the PSA screening as ordered. [facility] Medical History (Updated 12/17/24 @ 10:08 by RAMON Cleveland) HTN (hypertension) Ankle injury Knee pain Cervical muscle strain Otitis media, right Low back pain radiating to lower extremity Disc degeneration, lumbar Chronic pain syndrome Radiculopathy, lumbar region Sinusitis Dyslipidemia Bilateral hip pain SI (sacroiliac) joint dysfunction Post-COVID chronic cough Elevated cholesterol Acute middle ear effusion Surgical History H/O radiofrequency ablation (RFA) of nerve of lumbar spine History of esophagogastroduodenoscopy (EGD) Hx of colonoscopy History of lumbar laminectomy S/P lumbar laminectomy Hx of tonsillectomy H/O shoulder surgery Family History Other H/O shoulder surgery History of lumbar laminectomy Hx of tonsillectomy Social History Patient Tobacco Use Status: Never used Tobacco e-Cigarette/Vaping Use: Never Used Second Hand Smoke Exposure: No service: Yes Current occupational status: employed Current occupational exposures/hazards: Yes Cognitive needs: No Hearing needs: No Vision needs: No Questionnaire PHQ-9 Over the last 2 weeks, how often have you been bothered by any of the following problems? 1. Little interest or pleasure in doing things: nearly every day 2. Feeling down, depressed, or hopeless: nearly every day 3. Trouble falling or staying asleep, or sleeping too much: nearly every day 4. Feeling tired or having little energy: nearly every day 5. Poor appetite or overeating: several days 6. Feeling bad about yourself - or that you are a failure or have let yourself or your family down: not at all 7. Trouble concentrating on things, such as reading the newspaper or watching television: not at all 8. Moving or speaking so slowly that other people could have noticed. Or the opposite - being so fidgety or restless that you have been moving around a lot more than usual: not at all 9. Thoughts that you would be better off or of hurting yourself in some way: not at all Total score: 13 Depression Screening Interpretation: Positive Depression Screening Follow-up: Existing condition and Declines treatment Depression Screening Done: Yes 80204 - PHQ-9 Billing: Yes Source: Developed by Drs. Alexis Qiu, Chandrika Copeland, Juarez Hoffmann and colleagues, with an educational cecy from [employer]. Thrive Questionnaire Date Thrive assessed: 09/23/23 I am a: Patient What is your living situation today?: I have a steady place to live Within the past 12 months, did the food you bought not last and you didn't have the money to get more?: Never true Within the past 12 months, did you worry whether your food would run out before you got money to buy more?: Never true Do you have trouble paying for medicines?: No Do you have trouble getting transportation to medical appointments?: No Do you have trouble paying your heating and electricity bill?: No Do you have trouble taking care of your child, family member or friend?: No Do you have trouble with day-to-day activities such as bathing, preparing meals, shopping, managing finances, etc.?: No Are you currently unemployed and looking for a job?: No Are you interested in more education?: No Please select the resources that you would like help with: None Currently or been in a relationship where the following occur: No concerns reported THRIVE Score: 0 AUDIT C Alcohol Use Questionnaire (AUDIT-C) 1. How often do you have a drink containing alcohol?: 2-4 times a month 2. How many drinks containing alcohol do you have on a typical day when you are drinking?: 3 or 4 3. How often do you have six or more drinks on one occasion?: Less than monthly Total Score: 4 Score Reviewed/Action Taken: Yes JAYLIN-7 AMB Questionnaire JAYLIN-7 Date JAYLIN - 7 assessed: 12/17/24 Feeling nervous, anxious, or on edge: 0 = Not at all Not being able to stop or control worryin = Not at all Worrying too much about different things: 0 = Not at all Trouble relaxin = Several days Being so restless that it is hard to sit still: 0 = Not at all Becoming easily annoyed or irritable: 0 = Not at all Feeling afraid as if something awful might happen: 0 = Not at all Total JAYLIN-7 score (0-4 normal; 5-9 mild; 10-14 moderate; 15-21 severe): 1 Source: Developed by Drs. Alexis Qiu, Chandrika Copeland, Juarez Hoffmann and colleagues, with an educational cecy from [employer]. JAYLIN-7 Assessment Billing JAYLIN-7 Assessment Tool: JAYLIN-7 Assessment 13485 Physical exam (Primary Care) Vital Signs: Last Vital Signs Temp 98.5 F 12/17/24 09:19 Pulse 64 12/17/24 09:19 Resp 16 12/17/24 09:19 BP 150/88 H 12/17/24 09:19 Pulse Ox 96 12/17/24 09:19 Oxygen Delivery Method Room Air 12/17/24 09:19 BMI result Body Mass Index 40.3 Tobacco/Smoking Status: Tobacco use Status Tobacco use date assessed 12/17/24 12/17/24 09:24 Patient Tobacco Use Status Never used Tobacco 12/17/24 09:24 e-Cigarette/Vaping Use Never Used 12/17/24 09:24 PHQ-9: PHQ-9 Score PHQ-9: Total score 13 12/17/24 09:24 Depression Screening Interpretation: Positive Depression Screening Follow-up: Existing condition and Declines treatment Thrive Assessment: Date of Thrive Assessment Date Thrive assessed 09/23/23 12/17/24 09:24 Currently or been in a relationship where the following occur: No concerns reported Coding Level of Care Code Est Pt Level 3 (74859) Est Pt Prev Care 40-64y(04583) Diagnoses Physical exam Z00.00 Screening PSA (prostate specific antigen) Z12.5 HTN (hypertension) I10 Additional Codes JAYLIN-7 Assessment Billing - JAYLIN-7 Assessment Tool: JAYLIN-7 Assessment 55648 ([id number]) PHQ-9 - 05112 - PHQ-9 Billing: Yes ([id number]) Assessment & Plan Assessment & Plan (1) Physical exam: Code(s): Z00.00 - Encounter for general adult medical examination without abnormal findings Category: Medical (2) Screening PSA (prostate specific antigen): Code(s): Z12.5 - Encounter for screening for malignant neoplasm of prostate Category: Medical (3) HTN (hypertension): Code(s): I10 - Essential (primary) hypertension Category: Medical Plan . Orders: Orders Complete Blood Count Auto Diff Today Z00.00 - Encounter for general adult medical examination without abnormal findings Comprehensive Marland. Panel Fast Today Z00.00 - Encounter for general adult medical examination without abnormal findings Lipid Panel Today Z00.00 - Encounter for general adult medical examination without abnormal findings TSH reflex Free T4 Today Z00.00 - Encounter for general adult medical examination without abnormal findings UA CC w/rflx Micro + Cult Today Z00.00 - Encounter for general adult medical examination without abnormal findings Prostate Specific Antigen Scr Today Z12.5 - Encounter for screening for malignant neoplasm of prostate
[2024-12-17 09:19] VITALS: BP 150/88; PULSE 64; RESP 16; TEMP 36.9; O2SAT 96; BMI 40.3
== END 2024-12-17 11:11 | disposition home or self-care (01) ==
LOC: HO.HMCC 09:16
PROVIDERS: PCP Nurse Practitioner Family; Visit Provider Nurse Practitioner Family
DX: Z00.00 Encounter for general adult medical examination without abnormal findings (principal); Z12.5 Encounter for screening for malignant neoplasm of prostate; I10 Essential (primary) hypertension

== ENCOUNTER → 2024-12-17 09:14 | Outpatient (BNVA) | payer OTHER, SELFPAY | PROVIDERS: PCP Nurse Practitioner Family; Visit Provider Nurse Practitioner Family | DX: Z00.00 Encounter for general adult medical examination without abnormal findings (principal); I10 Essential (primary) hypertension; E66.01 Morbid (severe) obesity due to excess calories; Z68.41 Body mass index [BMI] 40.0-44.9, adult; Z13.31 Encounter for screening for depression; Z13.39 Encounter for screening examination for other mental health and behavioral disorders | CPT/HCPCS: 96127 ==

== ENCOUNTER 2024-12-28 14:48 | Outpatient (AMB) | payer OTHER, SELFPAY ==
--- NOTE | 2024-12-28 14:50 | MHC.OFFVIS ---
Vital Signs 12/28/24 14:52 Height 5 ft 10 in Weight 281 lb BMI 40.3 Intake Visit Reasons: OV - Right Knee MRI Review - Discuss Surgery Intake Note: Scot is a 54 year old male who presents today for a follow up of his Right Knee. He was last seen with Gilda Fortune where he reported that he hyperextended the right knee when he missed a step back in May of 2024. A cortisone injection was administered by Family Phys[facility]ry office on 08/11/24 which offered mild relief. An MRI was ordered and based on results he was referred to discuss surgical vs non surgical interventions. He is here for his MRI review. Allergies amoxicillin (AMOXICILLIN) Allergy (Intermediate, Verified 12/17/24 09:21) HIVES penicillin V Allergy (Unknown, Verified 12/17/24 09:) hives HPI HPI OV - Right Knee MRI Review - Discuss Surgery: Details: 54-year-old here comes in today with ongoing right knee pain. His pain is anterior. He has been present now for months. He has not benefitted much for injections but did have 1 in the past which was helpful for a week or 2. He states kneeling and standing from a seated position can sometimes be painful. Primary complaint is pain at the end of the day when he has been standing all day. He denies mechanical symptoms. REPLACED BY [facility] Medical History (Updated 12/31/24 @ 10:02 by Anderson Baker MD) HTN (hypertension) Ankle injury Knee pain Cervical muscle strain Otitis media, right Low back pain radiating to lower extremity Disc degeneration, lumbar Chronic pain syndrome Radiculopathy, lumbar region Sinusitis Dyslipidemia Bilateral hip pain SI (sacroiliac) joint dysfunction Post-COVID chronic cough Elevated cholesterol Acute middle ear effusion Surgical History H/O radiofrequency ablation (RFA) of nerve of lumbar spine History of esophagogastroduodenoscopy (EGD) Hx of colonoscopy History of lumbar laminectomy S/P lumbar laminectomy Hx of tonsillectomy H/O shoulder surgery Family History Other H/O shoulder surgery History of lumbar laminectomy Hx of tonsillectomy Social History Patient Tobacco Use Status: Never used Tobacco e-Cigarette/Vaping Use: Never Used Second Hand Smoke Exposure: No service: Yes Current occupational status: employed Current occupational exposures/hazards: Yes Cognitive needs: No Hearing needs: No Vision needs: No Physical Exam Exam Exam: Pleasant gentleman no acute distress. Full range of motion right knee. No effusion. No joint line tenderness to palpation. He does have reproducible pain at the patellar attachment of the medial aspect of the patellar tendon. Vital Signs: BMI result Body Mass Index 40.3 Office Procedures Joint Inj/Aspir; Non-Pain Clin Joint Injection/Drain Details: Injected 1 mL of Decadron and 3 mL 1% lidocaine and 3 mL of 0.25% Marcaine. Site was prepped using aseptic technique. Patient tolerated the procedure well. Shoulders, Hips, Knees, Knee Large Joint Injection : Right Knee Coding Procedure code (CPT) selection complete Results Reviewed Results Reviewed: I personally reviewed the MR images. Mostly benign MRI. No evidence of meniscal or ligamentous injury. There is a small question of possible patellar tendon tendinosis but unimpressive. Assessment & Plan Assessment & Plan (1) Patellar tendinitis of right knee: Code(s): M76.51 - Patellar tendinitis, right knee Category: Medical Plan: Symptoms are most consistent with patellar tendonitis although MRI is unimpressive. I injected his right knee today. I recommend he continue gentle activity for improving his overall physical fitness and health. I reviewed some basic exercises with him. He may follow up in the future should he need but at this time no additional intervention warranted. Coding Level of Care Code Est Pt Level 3 (99708) Diagnoses Patellar tendinitis of right knee M76.51 CPT Codes Shoulders, Hips, Knees, - Knee Large Joint Injection : Right Knee ([id number])
[2024-12-28 14:52] VITALS: BMI 40.3
--- OUTSIDE RECORDS SUMMARY | 2024-12-28 18:49 | XMS_ITS | Clinical Summary ---
Author Organization [facility] Address [address] [place] [address] Care Team Providers Care Vocational Rehabilitation Supervisor Name Role Phone Unavailable Primary Care [...] of 2) 2018 COVID-19 Vaccine ( - 2024-2 6 season) 2024 Influenza (#1) 2024 HPV Vaccine [...]
== END 2024-12-28 15:43 | disposition home or self-care (01) ==
LOC: HO.HOS 14:49
PROVIDERS: PCP Nurse Practitioner Family; Visit Provider Orthopaedic Surgery
DX: M76.51 Patellar tendinitis, right knee (principal)
CPT/HCPCS: 20610; 99213

== ENCOUNTER → 2024-12-28 14:48 | Outpatient (BNVA) | payer OTHER, SELFPAY | PROVIDERS: PCP Nurse Practitioner Family; Visit Provider Orthopaedic Surgery | DX: M76.51 Patellar tendinitis, right knee (principal) | CPT/HCPCS: 20610; 99212; J0665; J1100; J2003 ==

== ENCOUNTER 2025-01-02 08:35 | Outpatient (REF) | payer OTHER, SELFPAY ==
[2025-01-02 11:10] LABS: MANUAL DIFF FLAG NO
[2025-01-02 11:13] LABS: Hematocrit 43.2 % (42.0-52.0); Hemoglobin 14.4 g/dl (14.0-18.0); Imm Gran Abs Auto 0.04 X10*3/uL (0.00-0.03); Imm Gran Pct Auto 0.5 % (0.0-0.4); Lymphocytes Absolute Auto 2.6 X10*3/uL (1.2-4.9); Mean Corpuscular HGB Conc 33.3 g/dl (31.0-36.0); Mean Corpuscular Hemoglobin 28.0 pg (27.0-33.0); Mean Corpuscular Volume 83.9 fL (80.0-98.0); NRBC Abs Auto 0.000 X10*3/uL (0.0-0.012); NRBC Pct Auto 0.0 /100WBC (0.0-0.2); Platelet Count 262 X10*3/uL (160-400); Red Blood Count 5.15 X10*6/uL (4.60-5.80); White Blood Count 7.8 X10*3/uL (4.8-10.8)
[2025-01-02 11:35] LABS: Alanine Aminotransferase 41 U/L (0-40); Albumin Level 4.4 g/dL (3.5-5.0); Alkaline Phosphatase 42 U/L (39-117); Anion Gap 11 (12-20); Aspartate Amino Transferase 27 U/L (5-37); Blood Urea Nitrogen 9 mg/dL (9-16); Calcium 8.8 mg/dL (8.4-10.2); Carbon Dioxide 27 mmol/L (22-29); Chloride 107 mmol/L (96-108); Cholesterol 155 mg/dL (<200); Estimated Glomerular Filt Rate > 60; HDL Cholesterol 42 mg/dL (>40); Potassium 4.2 mmol/L (3.3-5.1); Sodium 141 mmol/L (135-145); Total Protein 6.9 g/dL (6.5-8.0); Triglycerides 142 mg/dL (<150)
== END 2025-01-02 08:36 | disposition home or self-care (01) ==
LOC: HO.HMGCLDS 08:35
PROVIDERS: PCP Nurse Practitioner Family; Visit Provider Nurse Practitioner Family
DX: Z00.00 Encounter for general adult medical examination without abnormal findings (principal); Z12.5 Encounter for screening for malignant neoplasm of prostate; Z13.6 Encounter for screening for cardiovascular disorders; Z13.0 Encounter for screening for diseases of the blood and blood-forming organs and certain disorders involving the immune mechanism
CPT/HCPCS: 36415; 80053; 80061; 84153; 84443; 85025

== ENCOUNTER 2025-02-25 14:44 | Outpatient (AMB) | payer OTHER, SELFPAY ==
--- NOTE | 2025-02-25 14:46 | A.PHYSOV ---
Vital Signs 02/25/25 14:47 Height 5 ft 10 in Weight 270 lb BMI 38.7 Intake Visit Reasons: back pain Intake Note: Patient is a 54 year old male here today for back pain. End Lathe Operator Required: No Allergies amoxicillin (AMOXICILLIN) Allergy (Intermediate, Verified 02/25/25 14:48) HIVES penicillin V Allergy (Unknown, Verified 02/25/25 14:48) hives HPI Comments Details: History of Present Illness The patient is a 54 year old male presenting for management of chronic back pain. He reports persistent pain that varies daily. The patient describes his pain as currently located in the center of his back, with a quality like an ache or a feeling of having been punched, though he notes it is typically in the lower back. He experiences nocturnal muscle spasms that resolve on their own without him needing to walk them off. The pain does not radiate into his legs. A prior injection targeting nerves and discs did not provide adequate relief for his current symptoms. He has a known history of arthritis on MRI. Pain Description - Location: The patient reports pain is currently in the center back, though it is normally in the lower back. - Quality: The pain is described as an ache, sometimes feeling as if he has been punched. - Radiation: The patient denies radiation of pain into his legs. - Associated Symptoms: He reports experiencing muscle spasms in the middle of the night. - Exacerbating Factors: Pain is worse when bending backward and is also elicited to a lesser degree when bending forward. Procedure: L5-S1 SANDOR 07/10/2024 75% reduction of his pain for 2 weeks. Bilateral knee cortisone injection 08/11/2024 [facility] Medical History (Updated 02/25/25 @ 16:56 by KARSTEN Griggs) HTN (hypertension) Ankle injury Knee pain Cervical muscle strain Otitis media, right Low back pain radiating to lower extremity Disc degeneration, lumbar Chronic pain syndrome Radiculopathy, lumbar region Sinusitis Dyslipidemia Bilateral hip pain SI (sacroiliac) joint dysfunction Post-COVID chronic cough Elevated cholesterol Acute middle ear effusion Surgical History H/O radiofrequency ablation (RFA) of nerve of lumbar spine History of esophagogastroduodenoscopy (EGD) Hx of colonoscopy History of lumbar laminectomy S/P lumbar laminectomy Hx of tonsillectomy H/O shoulder surgery Family History Other H/O shoulder surgery History of lumbar laminectomy Hx of tonsillectomy Social History Patient Tobacco Use Status: Never used Tobacco e-Cigarette/Vaping Use: Never Used Second Hand Smoke Exposure: No service: Yes Current occupational status: employed Current occupational exposures/hazards: Yes Cognitive needs: No Hearing needs: No Vision needs: No Review of Systems Narrative Review of Systems - Musculoskeletal: Reports back pain that varies daily in location and intensity, reporting it in the center and lower back. - Neurological: Reports nocturnal muscle spasms. - Denies radicular pain into the legs or buttocks. Physical Exam Exam Exam: Physical Exam Lumbar Spine: Examination of the lumbar spine, there is no visible swelling or deformity. He is tender to the lower lumbar facets. He is otherwise nontender. Full range of motion of his lumbar spine. He does have an increase in pain with facet loading. Special Tests: Lhermittes sign was negative Heel Toe walk is normal Left straight leg raise: Negative Right straight leg raise: Negative Special tests Cammie test is negative Ganslen's test is negative SI Joint compression test negative Sabino test negative Piriformis stretch is negative Lower Extremities: Full range of motion bilateral lower extremities. No calf pain or edema. Neuro: Sensation: Intact to lower extremities bilaterally Strength L2 (Psoas): 5/5 on the left and 5/5 on the right. L3 (Quads): 5/5 on the left and 5/5 on the right. L4 (Ant tibialis): 5/5 on the left and 5/5 on the right. L5 (EHL) 5/5 on the left and 5/5 on the right. S1 (Gastroc): 5/5 on the left and 5/5 on the right. DTR L4: (Patellar) Left 2 Right 2 S1: (Achilles) Left 1 Right 1 Babinski Downgoing No pathologic clonus. No involuntary movement. Vital Signs: BMI result Body Mass Index 38.7 Assessment & Plan Assessment & Plan (1) Vertebrogenic low back pain: Code(s): M54.51 - Vertebrogenic low back pain Category: Medical Plan Pain Management - Analgesia: The patient reports his pain is still there and a previous injection for nerve and disc-related issues does not seem to address his current symptoms. - Activities of Daily Living: The patient is seeking an intervention to improve his condition, stating, Anything is worth it. Plan Patient was informed and verbally consented to the use of an ambient scribe for clinic note documentation during this visit. 1. Chronic Low Back Pain The patient's clinical presentation, with back pain that worsens upon extension, is characteristic of facet-mediated arthritic pain rather than nerve or disc-related issues addressed by a prior injection. A plan was formulated to proceed with lumbar facet injections. I recommend bilateral L4-5, L5-S1 facet injection. The goal of the injection is to achieve at least a 50% reduction in pain for three to six months. If the injection is effective, the patient can then consider a radiofrequency ablation, which may provide longer-term relief for one and a half to two years. The facet injections will be administered by Dr. Bonilla under x-ray guidance. An order for the procedure will be placed, and it is anticipated to be scheduled for early March. A follow-up appointment is scheduled for three weeks after the procedure to evaluate its effectiveness. Discussion Notes I discussed with the patient that his symptoms of back pain worsening when he leans back are characteristic of arthritic pain, which differs from the nerve or disc issues targeted by his previous injection. I proposed a facet joint injection as a diagnostic and therapeutic measure. I explained that the goal is to achieve at least a 50% pain reduction for three to six months. I informed him that if the injection proves successful, we could then consider a radiofrequency ablation, a procedure that could offer more sustained relief for approximately one and a half to two years, after which the nerve typically regenerates. We reviewed the risks of the injection, including infection, bleeding, and nerve damage, and I noted that it would be performed under X-ray guidance to ensure accuracy. The patient understood the plan and consented to proceed. I advised him that we would place the order and scheduling would likely be for early March, with a follow-up visit scheduled three weeks post-procedure to assess the outcome. Patient Instructions - We will schedule you for a facet joint injection in your back to help with your pain. - Due to the holiday, this procedure will likely be scheduled in early March. - The goal of the injection is to reduce your pain for three to six months. - If the injection works well, we can discuss another procedure called ablation for longer-lasting pain relief. - Risks of the injection include infection, bleeding, and nerve damage. - Our office will contact you to schedule the injection once it is authorized. - Please schedule a follow-up appointment with me for three weeks after your injection to check on your progress. Coding Level of Care Code Tele Est Pt Level 3 (11536) Diagnoses Vertebrogenic low back pain M54.51
[2025-02-25 14:47] VITALS: BMI 38.7
--- OUTSIDE RECORDS SUMMARY | 2025-02-25 18:52 | XMS_ITS | Clinical Summary ---
Author Organization [facility] Address [address] [place] [address] Care Team Providers Care Sprayer Hand Name Role Phone Unavailable Primary Care Provider [...] Last Done Comments Hepatitis C Screening 1968 MMR (Born 1958-) 1968 DTaP/Tdap/Td (1 - Tdap) 1986 Hep B (1 of 3 - 19+ 3-dose series) 1987 Pneumococcal 50+ years (1 of 1 - PCV) 2018 Zoster (Shingrix) (1 of 2) 2018 COVID-19 Vaccine ( - 2024-2 6 season) 2024 Influenza (#1) 2024 RSV (1 - 1-dose 75+ series) 2043 HPV Vaccine (No Doses Required) Completed Hep A Aged Out No longer eligi ble based on patient's age to complete this topic Hib Aged Out No longer eligi ble based on patient's age to complete this topic Meningococcal ACWY Aged Out No longer eligible based on patient's age to complete this topic
== END 2025-02-25 15:19 | disposition home or self-care (01) ==
PROVIDERS: PCP Nurse Practitioner Family; Visit Provider Physician Assistant
DX: M54.51 Vertebrogenic low back pain (principal)
CPT/HCPCS: 99214

== ENCOUNTER → 2025-02-25 14:44 | Outpatient (BNVA) | payer OTHER, SELFPAY | PROVIDERS: PCP Nurse Practitioner Family; Visit Provider Physician Assistant | DX: G89.29 Other chronic pain (principal); M54.51 Vertebrogenic low back pain; R20.0 Anesthesia of skin | CPT/HCPCS: 99212 ==